=== PATIENT | male | born 1940 | race Caucasian/White ===

== ENCOUNTER 2016-11-21 11:39 | Inpatient (IN) | payer MEDICARE, OTHER ==
[~2016-11-21] VITALS: Ht 177.8 cm; Wt 98.6 kg
[~2016-11-21 11:39] MED LIST: ALLO100T51 PO; DILT300C52 PO; FINA5TAB30 PO; WARF2.5T73 PO; WARF5TAB67 PO; [UNRECOGNIZED DRUG - CODE] PO
--- OUTSIDE RECORDS SUMMARY | 2016-11-21 11:44 | XMS REPORT | Continuity of Care Document ---
Author Author Susan Rodarte CNA Ambulatory Address [address] [place] [address] Phone Care Team Providers Care Safemaker Name Role Phone Rodri Juan STARK Unavailable Payers Payer name Insurance type Covered libertarian ID Authorization(s) Unknown Problems Condition Effective Dates (start - stop) Clinical Status Atrial Fibrillation - *Chronic S/P Pacemaker - *Chronic BPH - *Chronic History of gout - Episodic Atrial Fibrillation - *Controlled S/P Pacemaker - *Chronic BPH - *Chronic S/P Pacemaker - *Chronic Atrial Fibrillation - *Chronic HX-SKIN MALIGNANCY NEC - PRSNL HST COLONIC POLYPS - PRSNL HST URNR DSRD CALC - FM HX PROSTATE MALIG - STATUS CARDIAC PACEMAKER - LONG-TERM USE ANTICOAGUL - HYPERLIPIDEMIA NEC/NOS - ANEMIA NOS - MITRAL VALVE DISORDER - AORTIC VALVE DISORDER - ATRIAL FIBRILLATION - SINOATRIAL NODE DYSFUNCT - CARDIAC DYSRHYTHMIA NOS - CHF NOS - CARDIOMEGALY - ESOPHAGEAL REFLUX - DVRTCLO COLON W/O HMRHG - CALCULUS OF KIDNEY - BPH W URINARY OBS/LUTS - ACTINIC KERATOSIS - DYSPHAGIA NOS - ALLERGY, UNSPECIFIED - Atrial Fibrillation - *Chronic Sick Sinus Syndrome - *Chronic Pacemaker Reprogramming - *Routine Atrial Fibrillation - *Chronic Calculus of kidney - Episodic BPH - *Chronic Other and unspecified hyperlipidemia - *Chronic Influenza Vaccine - Atrial Fibrillation - *Chronic S/P Pacemaker - Atrial Fibrillation - *Chronic S/P Pacemaker - *Stable Upper Respiratory Infection, Acute - *Acute Laryngitis acute - *Acute Bronchitis, Acute - *Acute Acute frontal sinusitis - *Acute Status post placement of cardiac pacemaker - *Chronic Anticoagulation adequate with anticoagulant therap - *Chronic Atrial Fibrillation - *Chronic BPH - *Chronic BPH - *Controlled Family history of malignant neoplasm of prostate - *Routine 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 - * Fair Control Family history of malignant neoplasm of prostate - *Routine Family History Family Member Diagnosis Age At Onset Status Brother (Unknown) Heart disease Yes sister 1 (Unknown) Rheumatoid Arthritis Yes Father (Unknown) Hypertension Yes sister 2 (Unknown) Alive and well (Unknown) Son (Unknown) coarctation of aorta Yes Mother (Unknown) Diabetes Yes Mother (Unknown) Hypertension Yes Mother (Unknown) Cancer - lung Yes Mother (Unknown) Cancer - liver Yes Father (Unknown) Diabetes Yes Father (Unknown) Cancer - bladder Yes Mother (Unknown) Obesity Yes Social History Social History Element Description Quantity Unknown Allergies, Adverse Reactions, Alerts Substance Reaction Severity Status IODINE Unknown Medications Medication Instructions Dosage Effective Dates (start - stop) Status finasteride 5 mg tablet Take 1 tablet by mouth at bedtime. - Active digoxin 250 mcg tablet Take 1 tablet by mouth every day. - Active diltiazem ER 240 mg capsule,extended release Take 1 capsule by mouth every day. - Active allopurinol 100 mg tablet Take 1 tablet by mouth every day. - Active warfarin 5 mg tablet 2.5 mg -; 5 mg other days. - Active finasteride 5 mg tablet Take 1 tablet by mouth at bedtime. - No Longer Active digoxin 250 mcg tablet Take 1 tablet by mouth every day. - Sep No Longer Active diltiazem ER 240 mg capsule,extended release Take 1 capsule by mouth every day. - No Longer Active allopurinol 100 mg tablet Take 1 tablet by mouth every day. - No Longer Active warfarin 5 mg tablet 2.5 mg m-w-; 5 mg other days. - 2013 No Longer Active Immunizations Vaccine Date Status Comments Flu (split) (3 yrs or older) completed pneumo (2 yrs or older) (PPV23) completed - Completed reason: source unspecified Results Test Name Date and Time Measure Units Reference Range Abnormal Flag Comments Unknown Vital Signs Date / Time: Height Weight Pulse Rate Blood Pressure Temperature /11:28:00 69.50 in 208.00 lbs 65 /min 118/84 mm[Hg] 98.0 F Procedures Procedure Date Unknown Encounters Encounter Location Date Patient Visit [facility] Patient Visit [facility] Patient Visit [facility] Card Patient Visit [facility]version Patient Visit [facility] Patient Visit [facility] Patient Visit [facility] Patient Visit [facility] Patient Visit [facility] Patient Visit [facility] Patient Visit [facility] Patient Visit [facility] Patient Visit [facility] Patient Visit [facility] Patient Visit Conversion Advance Directives Directive Effective Date Unknown
--- OUTSIDE RECORDS SUMMARY | 2016-11-21 11:44 | XMS REPORT | Referral Summary ---
Author Author [facility], Family Medicine Organization [facility] Address Unknown Phone Unavailable Care Team Providers Care Aircraft Manager Name Role Phone Nayely Dorsey Primary Care Physician [phone] Encounter VC Date(s): 09/14/16 - 09/14/16 [facility] [address] [place] [address]- Discharge Disposition: 01-Home or Self Care Attending Physician: Chidi Dorsey MD Admitting Physician: Chidi Dorsey MD Vital Signs Most recent to 1 oldest [Reference Range]: Blood Pressure 152/72 mmHg [90-140/60-90 mmHg] *HI* (09/14/16 8:15 AM) Problem List Condition Effective Dates Status Health Status Informant Actinic Resolved keratosis(Confirmed) Allergies(Confirmed) Resolved Anemia(Confirmed) Resolved Anticoagulation Resolved adequate with anticoagulant therapy, half-way(Confirmed) Aortic valve Resolved disorder(Confirmed) Atrial Resolved fibrillation(Confirm ed) Atrial Resolved fibrillation(Confirm ed) Benign essential Active hypertension(Confirm ed) Cardiac Resolved dysrhythmia(Confirme d) Cardiac Resolved pacemaker(Confirmed) Cardiomegaly(Confirm Resolved ed) CHF (congestive Resolved heart failure)(Confirmed) Colonic Resolved polyps(Confirmed) Diverticulitis(Confi Resolved rmed) Diverticulosis of Resolved colon(Confirmed) Dysphagia(Confirmed) Resolved Gastro esophageal Resolved reflux(Confirmed) Chronic Active gout(Confirmed) Hyperlipidemia(Confi Resolved rmed) Hypertrophy of Resolved prostate with urinary obstruction(Confirme d) Elevated blood Active sugar(Confirmed) Kidney Resolved disease(Confirmed) Kidney Resolved stone(Confirmed) Mitral valve Resolved disorder(Confirmed) Multiple adenomatous Resolved polyps(Confirmed) Obesity(Confirmed) Active patient Persistent atrial Active fibrillation(Confirm ed) Polio(Confirmed) Resolved Prostate cancer; Resolved family history(Confirmed) Sick sinus Resolved syndrome(Confirmed) Sinoatrial node Resolved dysfunction(Confirme d) Skin Resolved neoplasm(Confirmed) Syncope(Confirmed) Resolved Urinary Resolved calculi(Confirmed) On warfarin Active therapy(Confirmed) Allergies, Adverse Reactions, Alerts Substance Reaction Severity Status iodine Adverse Reaction Active Unknown Medications allopurinol 100 mg oral tablet 100 mg 1 tabs, Oral, Daily, # 90 tabs, 1 Refill(s), Pharmacy: [facility] # [id number], 1 tabs Oral Daily Start Date: 03/15/16 Status: Ordered digoxin 250 mcg (0.25 mg) oral tablet 250 mcg 1 tabs, Oral, Daily, # 90 tabs, 1 Refill(s), Pharmacy: [facility] #[id number], 1 tabs Oral Daily Start Date: 03/15/16 Status: Ordered Diltiazem Hydrochloride ER 300 mg/24 hours oral capsule, extended release 300 mg 1 caps, Oral, Daily, # 90 caps, 1 Refill(s), Pharmacy: [facility] # [id number], 1 caps Oral Daily Start Date: 03/15/16 Status: Ordered Eliquis Oral, BID, 0 Refill(s) Start Date: 09/14/16 Status: Ordered finasteride 5 mg oral tablet 5 mg 1 tabs, Oral, Daily, # 90 tabs, 1 Refill(s), Pharmacy: [facility] # [id number], 1 tabs Oral Daily Start Date: 03/15/16 Status: Ordered Tylenol Caplet 325 mg oral tablet 1 tabs, Oral, Daily, as needed for pain, 0 Refill(s) Start Date: 06/03/14 Status: Ordered warfarin 5 mg oral tablet 5 mg 1 tabs, Oral, Daily, TAKE 5MG M/W/F AND TAKE 2.5MG TU/THURS/SAT/SUN, or as directed based on INR., # 100 tabs, 1 Refill(s), Pharmacy: [facility] # [id number], 1 tabs Oral Daily,Instr:TAKE 5MG M/W/F AND TAKE 2.5MG TU/THURS/SAT/SUN, or as directed... Start Date: 03/15/16 Status: Ordered Results No data available for this section Immunizations Given and Recorded Vaccine Date Status Refusal Reason influenza virus vaccine, inactivated 04/18/16 Given influenza virus vaccine, inactivated 05/07/15 Recorded influenza virus vaccine, live 05/08/12 Given pneumococcal 13-valent conjugate vaccine 04/18/16 Given pneumococcal 23-polyvalent vaccine 01/22/07 Recorded zoster vaccine live 03/04/16 Recorded Procedures Procedure Date Related Diagnosis Body Site Colonoscopic polypectomy1 12/24/15 Colonoscopy 2011 Colonoscopy; diverticulitis 2008 septoplasty and Endoscopic cauterization 2008 Lithotripsy, cysto; kidney stones 2007 Colonoscopy abnormal2 2005 Pacemaker insertion, Permanent3 2004 Prostate Biopsy- Negative 2000 Viral meningitis4 1999 Syncope5 1995 Bilateral Inguinal Herniorrhaphy 1988 Kidney stone6 1984 Appendectomy 1964 Ganglion cyst removal right wrist 1961 Polio7 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 They can happen to people of all ages. There are many things you can do to make your home safe and to help prevent falls. WHAT CAN I DO ON THE OUTSIDE OF MY HOME? Regularly fix the edges of walkways and driveways and fix any cracks. Remove anything that might make you trip as you walk through a door, such as a raised step or threshold. Trim any bushes or trees on the path to your home. Use bright outdoor lighting. Clear any walking paths of anything that might make someone trip, such as rocks or tools. Regularly check to see if handrails are loose or broken. Make sure that both sides of any steps have handrails. Any raised decks and porches should have guardrails on the edges. Have any leaves, snow, or ice cleared regularly. Use sand or salt on walking paths during winter. Clean up any spills in your garage right away. This includes oil or grease spills. WHAT CAN I DO IN THE BATHROOM? Use night lights. Install grab bars by the toilet and in the tub and shower. Do not use towel bars as grab bars. Use non-skid mats or decals in the tub or shower. If you need to sit down in the shower, use a plastic, non-slip stool. Keep the floor dry. Clean up any water that spills on the floor as soon as it happens. Remove soap buildup in the tub or shower regularly. Attach bath mats securely with double-sided non-slip rug tape. Do not have throw rugs and other things on the floor that can make you trip. WHAT CAN I DO IN THE BEDROOM? Use night lights. Make sure that you have a light by your bed that is easy to reach. Do not use any sheets or blankets that are too big for your bed. They should not hang down onto the floor. Have a firm chair that has side arms. You can use this for support while you get dressed. Do not have throw rugs and other things on the floor that can make you trip. WHAT CAN I DO IN THE KITCHEN? Clean up any spills right away. Avoid walking on wet floors. Keep items that you use a lot in [id number] places. If you need to reach something above you, use a strong step stool that has a grab bar. Keep electrical cords out of the way. Do not use floor luxembourgish or wax that makes floors slippery. If you must use wax, use non-skid floor wax. Do not have throw rugs and other things on the floor that can make you trip. WHAT CAN I DO WITH MY STAIRS? Do not leave any items on the stairs. Make sure that there are handrails on both sides of the stairs and use them. Fix handrails that are broken or loose. Make sure that handrails are as long as the stairways. Check any carpeting to make sure that it is firmly attached to the stairs. Fix any carpet that is loose or worn. Avoid having throw rugs at the top or bottom of the stairs. If you do have throw rugs, attach them to the floor with carpet tape. Make sure that you have a light switch at the top of the stairs and the bottom of the stairs. If you do not have them, ask someone to add them for you. WHAT ELSE CAN I DO TO HELP PREVENT FALLS? Wear shoes that: Do not have high heels. Have rubber bottoms. Are comfortable and fit you well. Are closed at the toe. Do not wear sandals. If you use a stepladder: Make sure that it is fully opened. Do not climb a closed stepladder. Make sure that both sides of the stepladder are locked into place. Ask someone to hold it for you, if possible. Clearly forrest and make sure that you can see: Any grab bars or handrails. First and last steps. Where the edge of each step is. Use tools that help you move around (mobility aids) if they are needed. These include: Canes. Walkers. Scooters. Crutches. Turn on the lights when you go into a dark area. Replace any light bulbs as soon as they burn out. Set up your furniture so you have a clear path. Avoid moving your furniture around. If any of your floors are uneven, fix them. If there are any pets around you, be aware of where they are. Review your medicines with your doctor. Some medicines can make you feel dizzy. This can increase your chance of falling. Ask your doctor what other things that you can do to help prevent falls. This information is not intended to replace advice given to you by your health care provider. Make sure you discuss any questions you have with your health care provider. Document Released: 05/06/2010 Document Revised: 11/24/2015 Document Reviewed: [employer] Patient Education 2016 [employer] Health and Wellness Exercising to Stay Healthy Exercising regularly is important. It has many health benefits, such as: Improving your overall fitness, flexibility, and endurance. Increasing your bone density. Helping with weight control. Decreasing your body fat. Increasing your muscle strength. Reducing stress and tension. Improving your overall health. In order to become healthy and stay healthy, it is recommended that you do moderate-intensity and vigorous-intensity exercise. You can tell that you are exercising at a moderate intensity if you have a higher heart rate and faster breathing, but you are still able to hold a conversation. You can tell that you are exercising at a vigorous intensity if you are breathing much harder and faster and cannot hold a conversation while exercising. HOW OFTEN SHOULD I EXERCISE? Choose an activity that you enjoy and set realistic goals. Your health care provider can help you to make an activity plan that works for you. Exercise regularly as directed by your health care provider. This may include: Doing resistance training twice each week, such as: Push-ups. Sit-ups. Lifting weights. Using resistance bands. Doing a given intensity of exercise for a given amount of time. Choose from these options: 150 minutes of moderate-intensity exercise every week. 75 minutes of vigorous-intensity exercise every week. A mix of moderate-intensity and vigorous-intensity exercise every week. Children, women, people who are out of shape, people who are overweight , and older adults may need to consult a health care provider for individual recommendations. If you have any sort of medical condition, be sure to consult your health care provider before starting a new exercise program. WHAT ARE SOME EXERCISE IDEAS? Some moderate-intensity exercise ideas include: Walking at a rate of 1 mile in 15 minutes. Biking. Hiking. Golfing. Dancing. Some vigorous-intensity exercise ideas include: Walking at a rate of at least 4.5 miles per hour. Jogging or running at a rate of 5 miles per hour. Biking at a rate of at least 10 miles per hour. Lap swimming. Roller-skating or in-line skating. Cross-country skiing. Vigorous competitive sports, such as football, basketball, and soccer. Jumping rope. Aerobic dancing. WHAT ARE SOME EVERYDAY ACTIVITIES THAT CAN HELP ME TO GET EXERCISE? Yard work, such as: Pushing a flux core welder. Raking and bagging leaves. Washing and waxing your car. Pushing a stroller. Shoveling snow. Gardening. Washing windows or floors. HOW CAN I BE MORE ACTIVE IN MY DAY-TO-DAY ACTIVITIES? Use the stairs instead of the elevator. Take a walk during your lunch break. If you drive, park your car farther away from work or school. If you take public transportation, get off one stop early and walk the rest of the way. Make all of your phone calls while standing up and walking around. Get up, stretch, and walk around every 30 minutes throughout the day. WHAT GUIDELINES SHOULD I FOLLOW WHILE EXERCISING? Do not exercise so much that you hurt yourself, feel dizzy, or get very short of breath. Consult your health care provider before starting a new exercise program. Wear comfortable clothes and shoes with good support. Drink plenty of water while you exercise to prevent dehydration or heat stroke. Body water is lost during exercise and must be replaced. Work out until you breathe faster and your heart beats faster. This information is not intended to replace advice given to you by your health care provider. Make sure you discuss any questions you have with your health care provider. Document Released: 08/12/2011 Document Revised: 07/31/2015 Document Reviewed: [employer] Interactive Patient Education 2016 [employer] No follow up information was provided.
--- OUTSIDE RECORDS SUMMARY | 2016-11-21 11:44 | XMS REPORT | Referral Summary ---
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 Name Role Phone Gabriel Mace Primary Care Physician [phone] Encounter [facility] Date(s): 10/14/14 - 10/14/14 [facility] Internal Medicine [address] [place] [address] [place] [id number] Discharge Diagnosis: History of kidney stones Discharge Diagnosis: Essential hypertension Discharge Diagnosis: Medicare annual wellness visit, subsequent Discharge Diagnosis: BPH (benign prostatic hyperplasia) Discharge Disposition: Home or Self Care Attending Physician: Juan Mace MD Admitting Physician: Juan Mace MD Vital Signs Most recent to 1 oldest [Reference Range]: Temperature Oral 36.5 degC [35.8-37.3 degC] (10/14/14 3:36 PM) Temperature Tympanic 36.5 degC [36.6-38.1 degC] *LOW* (10/14/14 8:43 AM) Peripheral Pulse 69 bpm Rate [60-100 bpm] (10/14/14 3:36 PM) Respiratory Rate 16 br/min [14-20 br/min] (10/14/14 8:43 AM) Blood Pressure 118/68 mmHg [90-140/60-90 mmHg] (10/14/14 3:36 PM) Most recent to 1 oldest [Reference Range]: SpO2 95 % (10/14/14 8:43 AM) Problem List Condition Effective Dates Status Health Status Informant Actinic Resolved keratosis(Confirmed) Allergies(Confirmed) Resolved Anemia(Confirmed) Resolved Anticoagulation Resolved adequate with anticoagulant therapy, 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) Aortic valve Resolved disorder(Confirmed) Atrial Resolved fibrillation(Confirm ed) Atrial Resolved fibrillation(Confirm ed) Cardiac Resolved dysrhythmia(Confirme d) Cardiac Resolved pacemaker(Confirmed) Cardiomegaly(Confirm Resolved ed) CHF (congestive Resolved heart failure)(Confirmed) Colonic Resolved polyps(Confirmed) Diverticulitis(Confi Resolved rmed) Diverticulosis of Resolved colon(Confirmed) Dysphagia(Confirmed) Resolved Gastro esophageal Resolved reflux(Confirmed) Hyperlipidemia(Confi Resolved rmed) Hypertrophy of Resolved prostate with urinary obstruction(Confirme d) Kidney Resolved disease(Confirmed) Kidney Resolved stone(Confirmed) Mitral valve Resolved disorder(Confirmed) Multiple adenomatous Resolved polyps(Confirmed) Obesity(Confirmed) Active patient Persistent atrial Active fibrillation(Confirm ed) Polio(Confirmed) Resolved Prostate cancer; Resolved family history(Confirmed) Sick sinus Resolved syndrome(Confirmed) Sinoatrial node Resolved dysfunction(Confirme d) Skin Resolved neoplasm(Confirmed) Syncope(Confirmed) Resolved Urinary Resolved calculi(Confirmed) Allergies, Adverse Reactions, Alerts Substance Reaction Severity Status iodine Adverse Reaction Active Unknown Medications allopurinol 100 mg oral tablet 1 tabs, Oral, Daily, # 90 tabs, 1 Refill(s), 1 tabs Oral Daily Start Date: 10/14/14 Status: Ordered digoxin 250 mcg (0.25 mg) oral tablet 1 tabs, Oral, Daily, # 90 tabs, 1 Refill(s), 1 tabs Oral Daily Start Date: 10/14/14 Status: Ordered diltiazem 240 mg/24 hours oral capsule, extended release 1 caps, Oral, Daily, # 90 tabs, 1 Refill(s), 1 caps Oral Daily Start Date: 10/14/14 Status: Ordered finasteride 5 mg oral tablet 1 tabs, Oral, Daily, # 90 tabs, 1 Refill(s), 1 tabs Oral Daily Start Date: 10/14/14 Status: Ordered Guaiatussin AC 10 mg-100 mg/5 mL oral syrup 5 mL, Oral, q4hr, as needed for cough, X 7 days, # 210 mL, 0 Refill(s) Start Date: 10/10/14 Stop Date: 10/17/14 Status: Ordered Tylenol Caplet 325 mg oral tablet 1 tabs, Oral, Daily, as needed for pain, 0 Refill(s) Start Date: 06/03/14 Status: Ordered warfarin 5 mg oral tablet 1 tabs, Oral, Daily, # 78 tabs, 1 Refill(s), 1 tabs Oral Daily Start Date: 10/14/14 Status: Ordered Results No data available for this section Immunizations Vaccine Date Refusal Reason influenza virus vaccine, live 05/08/12 pneumococcal 23-polyvalent vaccine 01/22/07 Procedures Procedure Date Related Diagnosis Body Site Colonoscopy 2011 Colonoscopy; diverticulitis 2008 septoplasty and Endoscopic cauterization 2008 Lithotripsy, cysto; kidney stones 2007 Colonoscopy abnormal1 2005 Pacemaker insertion, Permanent2 2004 Prostate Biopsy- Negative 2000 Viral meningitis3 2000 Syncope4 1995 Bilateral Inguinal Herniorrhaphy 1987 Kidney stone5 1983 Appendectomy 1964 Ganglion cyst removal right wrist 1961 Polio6 195 1Adenomatous polyps and diverticuli 2Sick sinus syndrome 3Hospitalization 4Hospitalization 5Hospitalization 6Hospitalization Social History Social History Type Response Smoking Status Never smoker Assessment and Plan Extracted from: Title: Ambulatory Patient Education Author: Juan Mace MD Date: Family Medicine Hypertension As your heart beats, it forces blood through your arteries. This force is your blood pressure. If the pressure is too high, it is called hypertension (HTN) or high blood pressure. HTN is dangerous because you may have it and not know it. High blood pressure may mean that your heart has to work harder to pump blood. Your arteries may be narrow or stiff. The extra work puts you at risk for heart disease, stroke, and other problems. Blood pressure consists of two numbers, a higher number over a lower, 110/72, for example. It is stated as "110 over 72." The ideal is below 120 for the top number (systolic ) and under 80 for the bottom (diastolic ). Write down your blood pressure today. You should pay close attention to your blood pressure if you have certain conditions such as: Heart failure. Prior heart attack. Diabetes Chronic kidney disease. Prior stroke. Multiple risk factors for heart disease. To see if you have HTN, your blood pressure should be measured while you are seated with your arm held at the level of the heart. It should be measured at least twice. A one-time elevated blood pressure reading (especially in the Emergency Department) does not mean that you need treatment. There may be conditions in which the blood pressure is different between your right and left arms. It is important to see your caregiver soon for a recheck. Most people have essential hypertension which means that there is not a specific cause. This type of high blood pressure may be lowered by changing lifestyle factors such as: Stress. Smoking. Lack of exercise. Excessive weight. Drug/tobacco/alcohol use. Eating less salt. Most people do not have symptoms from high blood pressure until it has caused damage to the body. Effective treatment can often prevent, delay or reduce that damage. TREATMENT When a cause has been identified, treatment for high blood pressure is directed at the cause. There are a large number of medications to treat HTN. These fall into several categories, and your caregiver will help you select the medicines that are best for you. Medications may have side effects. You should review side effects with your caregiver. If your blood pressure stays high after you have made lifestyle changes or started on medicines, Your medication(s) may need to be changed. Other problems may need to be addressed. Be certain you understand your prescriptions, and know how and when to take your medicine. Be sure to follow up with your caregiver within the time frame advised ( usually within two weeks) to have your blood pressure rechecked and to review your medications. If you are taking more than one medicine to lower your blood pressure, make sure you know how and at what times they should be taken. Taking two medicines at the same time can result in blood pressure that is too low. SEEK IMMEDIATE MEDICAL CARE IF: You develop a severe headache, blurred or changing vision, or confusion. You have unusual weakness or numbness, or a faint feeling. You have severe chest or abdominal pain, vomiting, or breathing problems. MAKE SURE YOU: Understand these instructions. Will watch your condition. Will get help right away if you are not doing well or get worse. Document Released: 07/10/2006 Document Revised: 10/01/2012 Document Reviewed: [facility] Patient Information 2014 [employer]. Follow Up With: Where: When: Juan Mace [address] [place] [address] Drive; [place] [address] [place] (1Baeta In 4 months 02/13/2015 Comments: Extracted from: Title: Office Visit Note Author: Juan Mace MD Date: 10/14/14 Assessment/Plan BPH (benign prostatic hyperplasia) PSA will be scheduled. Ordered: Prostate Specific Antigen Essential hypertension This is well controlled. CMP will be ordered. Ordered: Comprehensive Metabolic Panel History of kidney stones This has been stable recently. Uric acid level will be checked. Ordered: Uric Acid Medicare annual wellness visit, subsequent The forms were filled out. Ordered: Periodic Comp Preventive Med 65+ years Est [address] Orders: allopurinol, 1 tabs, Oral, Daily, # 90 tabs, 1 Refill(s), 1 tabs Oral Daily digoxin, 1 tabs, Oral, Daily, # 90 tabs, 1 Refill(s), 1 tabs Oral Daily diltiazem, 1 caps, Oral, Daily, # 90 tabs, 1 Refill(s), 1 caps Oral Daily finasteride, 1 tabs, Oral, Daily, # 90 tabs, 1 Refill(s), 1 tabs Oral Daily warfarin, 1 tabs, Oral, Daily, # 78 tabs, 1 Refill(s), 1 tabs Oral Daily
--- OUTSIDE RECORDS SUMMARY | 2016-11-21 11:44 | XMS REPORT | Referral Summary ---
Author Author [facility] Organization [facility] Address Unknown Phone Unavailable Care Team Providers Care Licensed Vocational Nurse Name Role Phone Gabriel Mace Primary Care Physician [phone] Encounter [facility] [id number] Date(s): 03/03/15 - 03/03/15 [facility] [address] [place] [id number] Discharge Diagnosis: Presence of permanent cardiac pacemaker Discharge Diagnosis: Persistent atrial fibrillation Discharge Disposition: -Home or Self Care Attending Physician: Leander Zhao MD Admitting Physician: Leander Zhao MD Referring Physician: Juan Mace MD Vital Signs Most recent to 1 oldest [Reference Range]: Peripheral Pulse 60 bpm Rate [60-100 bpm] (03/03/15 9:16 AM) Blood Pressure 124/72 mmHg [90-140/60-90 mmHg] (03/03/15 9:16 AM) Problem List Condition Effective Dates Status Health Status Informant Actinic Resolved keratosis(Confirmed) Allergies(Confirmed) Resolved Anemia(Confirmed) Resolved Anticoagulation Resolved adequate with anticoagulant therapy, 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) Aortic valve Resolved disorder(Confirmed) Atrial Resolved fibrillation(Confirm [...] Daily, # 90 tabs, 1 Refill(s), Pharmacy: [facility], 1 tabs Oral Daily Start Date: 04/16/15 Status: Ordered digoxin 250 mcg (0.25 mg) oral tablet 250 mcg 1 tabs, Oral, Daily, # 90 tabs, 1 Refill(s), Pharmacy: [facility], 1 tabs Oral Daily Start Date: 04/16/15 Status: Ordered Diltiazem Hydrochloride ER 300 mg/24 hours oral capsule, extended release 300 mg 1 caps, Oral, Daily, # 90 caps, 3 Refill(s), Pharmacy: [facility], 1 caps Oral Daily Start Date: 05/14/15 Status: Ordered finasteride 5 mg oral tablet 5 mg 1 tabs, Oral, Daily, # 90 tabs, 1 Refill(s), Pharmacy: [facility], 1 tabs Oral Daily Start Date: 04/16/15 Status: Ordered Tylenol Caplet 325 mg oral tablet 1 tabs, Oral, Daily, as needed for pain, 0 Refill(s) Start Date: 06/03/14 Status: Ordered warfarin 5 mg oral tablet 5 mg 1 tabs, Oral, Daily, TAKE 5MG M/W/F AND TAKE 2.5MG TU/THURS/SAT/SUN., # 78 tabs, 1 Refill(s), Pharmacy: [facility], 1 tabs Oral Daily, Instr:TAKE 5MG M/W/F AND TAKE 2.5MG TU/THURS/SAT/SUN. Start Date: 04/16/15 Status: Ordered Results No data available for this section Immunizations Vaccine Date Refusal Reason influenza virus vaccine, inactivated 05/07/15 influenza virus vaccine, live 05/08/12 pneumococcal 23-polyvalent vaccine 01/22/07 Procedures Procedure Date Related Diagnosis Body Site Colonoscopy 2011 Colonoscopy; diverticulitis 2007 septoplasty and Endoscopic cauterization 2008 Lithotripsy, cysto; kidney stones 2007 Colonoscopy abnormal1 2004 Pacemaker insertion, Permanent2 2003 Prostate Biopsy- Negative 2001 Viral meningitis3 2000 Syncope4 1995 Bilateral Inguinal Herniorrhaphy 1988 Kidney stone5 1984 Appendectomy 1964 Ganglion cyst removal right wrist 1961 Polio6 1951 1Adenomatous polyps and diverticuli 2Sick sinus syndrome 3Hospitalization 4Hospitalization 5Hospitalization 6Hospitalization Social History Social History Type Response Smoking Status Never smoker Assessment and Plan Extracted from: Title: Office Visit Note Author: Leander Zhao MD Date: 03/03/15 Assessment/Plan 1.Presence of permanent cardiac pacemaker Ordered: Office Visit Level 3 Est 98484 Pm Device Progr Eval Sngl [id number] Return to Clinic 2.Persistent atrial fibrillation Ordered: Office Visit Level 3 Est 02452 Pm Device Progr Eval Sngl [id number] Return to Clinic Orders: warfarin, 5 mg 1 tabs, Oral, Daily, TAKE 5MG // AND TAKE 2.5MG / /MON/SUN., # 78 tabs, 1 Refill(s), 1 tabs Oral Daily Referrals to Other Providers Referred by: Leander Zhao MD
--- OUTSIDE RECORDS SUMMARY | 2016-11-21 11:44 | XMS REPORT | Referral Summary ---
Author Author [facility] Organization [facility] Address Unknown Phone Unavailable Care Team Providers Care It Applications Analyst Name Role Phone Nayely Dorsey Primary Care Physician [phone] Encounter VC Date(s): 03/15/16 - 03/15/16 [facility], [address] [place] [address]- Discharge Disposition: 01-Home or Self Care Attending Physician: Chidi Dosrey MD Admitting Physician: Chidi Dorsey MD Vital Signs Most recent to 1 oldest [Reference Range]: Blood Pressure 130/70 mmHg [90-140/60-90 mmHg] (03/15/16 9:31 AM) Problem List Condition Effective Dates Status Health Status Informant Actinic Resolved keratosis(Confirmed) Allergies(Confirmed) Resolved Anemia(Confirmed) Resolved Anticoagulation Resolved adequate with anticoagulant therapy, roasterman(Confirmed) Aortic valve Resolved disorder(Confirmed) Atrial Resolved fibrillation(Confirm [...] Daily, # 90 tabs, 1 Refill(s), Pharmacy: [facility] # [id number], 1 tabs Oral Daily Start Date: 03/15/16 Status: Ordered digoxin 250 mcg (0.25 mg) oral tablet 250 mcg 1 tabs, Oral, Daily, # 90 tabs, 1 Refill(s), Pharmacy: [facility] #[id number], 1 tabs Oral Daily Start Date: 03/15/16 Status: Ordered Diltiazem Hydrochloride ER 300 mg/24 hours oral capsule, extended release 300 mg 1 caps, Oral, Daily, # 90 caps, 1 Refill(s), Pharmacy: [facility] # [id number], 1 caps Oral Daily Start Date: 03/15/16 Status: Ordered finasteride 5 mg oral tablet 5 mg 1 tabs, Oral, Daily, # 90 tabs, 1 Refill(s), Pharmacy: [facility] # [id number], 1 tabs Oral Daily Start Date: 03/15/16 Status: Ordered Tylenol Caplet 325 mg oral tablet 1 tabs, Oral, Daily, as needed for pain, 0 Refill(s) Start Date: 06/03/14 Status: Ordered warfarin 5 mg oral tablet 5 mg 1 tabs, Oral, Daily, TAKE 5MG M/W/F AND TAKE 2.5MG TU/THURS/SAT/SUN, or as directed based on INR., # 100 tabs, 1 Refill(s), Pharmacy: [facility] # [id number], 1 tabs Oral Daily,Instr:TAKE 5MG M/W/F AND TAKE 2.5MG TU/THURS/SAT/SUN, or as directed... Start Date: 03/15/16 Status: Ordered Results No data available for this section Immunizations Vaccine Date Refusal Reason influenza virus vaccine, inactivated 05/07/15 influenza virus vaccine, live 05/08/12 pneumococcal 23-polyvalent vaccine 01/22/07 zoster vaccine live 03/04/16 Procedures Procedure Date Related Diagnosis Body Site Colonoscopic polypectomy1 6/2/16 Colonoscopy 2011 Colonoscopy; diverticulitis 2008 septoplasty and Endoscopic cauterization 2008 Lithotripsy, cysto; kidney stones 2007 Colonoscopy abnormal2 2005 Pacemaker insertion, Permanent3 2004 Prostate Biopsy- Negative 2000 Viral meningitis4 1999 Syncope5 1995 Bilateral Inguinal Herniorrhaphy 1987 Kidney stone6 1983 Appendectomy 1964 Ganglion cyst removal right wrist 1961 Polio7 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 During atrial fibrillation, the upper chambers of the heart (atria) quiver continuously in a chaotic pattern. This causes an irregular and often rapid heart rate. Atrial fibrillation is the result of the heart becoming overloaded with disorganized signals that tell it to beat. These signals are normally released one at a time by a part of the right atrium called the sinoatrial node. They then travel from the atria to the lower chambers of the heart (ventricles), causing the atria and ventricles to contract and pump blood as they pass. In atrial fibrillation, parts of the atria outside of the sinoatrial node also release these signals. This results in two problems. First, the atria receive so many signals that they do not have time to fully contract. Second, the ventricles, which can only receive one signal at a time, beat irregularly and out of rhythm with the atria. There are three types of atrial fibrillation: Paroxysmal. Paroxysmal atrial fibrillation starts suddenly and stops on its own within a week. Persistent. Persistent atrial fibrillation lasts for more than a week. It may stop on its own or with treatment. Permanent. Permanent atrial fibrillation does not go away. Episodes of atrial fibrillation may lead to permanent atrial fibrillation. Atrial fibrillation can prevent your heart from pumping blood normally. It increases your risk of stroke and can lead to heart failure. CAUSES Heart conditions, including a heart attack, heart failure, coronary artery disease, and heart valve conditions. Inflammation of the sac that surrounds the heart (pericarditis). Blockage of an artery in the lungs (pulmonary embolism). Pneumonia or other infections. Chronic lung disease. Thyroid problems, especially if the thyroid is overactive ( hyperthyroidism). Caffeine, excessive alcohol use, and use of some illegal drugs. Use of some medicines, including certain decongestants and diet pills. Heart surgery. defects. Sometimes, no cause can be found. When this happens, the atrial fibrillation is called lone atrial fibrillation. The risk of complications from atrial fibrillation increases if you have lone atrial fibrillation and you are age 60 years or older. RISK FACTORS Heart failure. Coronary artery disease. Diabetes mellitus. High blood pressure (hypertension). Obesity. Other arrhythmias. Increased age. SIGNS AND SYMPTOMS A feeling that your heart is beating rapidly or irregularly. A feeling of discomfort or pain in your chest. Shortness of breath. Sudden light-headedness or weakness. Getting tired easily when exercising. Urinating more often than normal (mainly when atrial fibrillation first begins). In paroxysmal atrial fibrillation, symptoms may start and suddenly stop. DIAGNOSIS Your health care provider may be able to detect atrial fibrillation when taking your pulse. Your health care provider may have you take a test called an ambulatory electrocardiogram (ECG). An ECG records your heartbeat patterns over a 24-hour period. You may also have other tests, such as: Transthoracic echocardiogram (TTE). During echocardiography, sound waves are used to evaluate how blood flows through your heart. Transesophageal echocardiogram (LEX). Stress test. There is more than one type of stress test. If a stress test is needed, ask your health care provider about which type is best for you. Chest X-ray exam. Blood tests. Computed tomography (CT). TREATMENT Treatment may include: Treating any underlying conditions. For example, if you have an overactive thyroid, treating the condition may correct atrial fibrillation. Taking medicine. Medicines may be given to control a rapid heart rate or to prevent blood clots, heart failure, or a stroke. Having a procedure to correct the rhythm of the heart: Electrical cardioversion. During electrical cardioversion, a controlled, low-energy shock is delivered to the heart through your skin. If you have chest pain, very low blood pressure, or sudden heart failure, this procedure may need to be done as an emergency. Catheter ablation. During this procedure, heart tissues that send the signals that cause atrial fibrillation are destroyed. Surgical ablation. During this surgery, thin lines of heart tissue that carry the abnormal signals are destroyed. This procedure can either be an open- heart surgery or a minimally invasive surgery. With the minimally invasive surgery, small cuts are made to access the heart instead of a large opening. Pulmonary venous isolation. During this surgery, tissue around the veins that carry blood from the lungs (pulmonary veins) is destroyed. This tissue is thought to carry the abnormal signals. HOME CARE INSTRUCTIONS Take medicines only as directed by your health care provider. Some medicines can make atrial fibrillation worse or recur. If blood thinners were prescribed by your health care provider, take them exactly as directed. Too much blood-thinning medicine can cause bleeding. If you take too little, you will not have the needed protection against stroke and other problems. Perform blood tests at home if directed by your health care provider. Perform blood tests exactly as directed. Quit smoking if you smoke. Do not drink alcohol. Do not drink caffeinated beverages such as coffee, soda, and some teas. You may drink decaffeinated coffee, soda, or tea. Maintain a healthy weight.Do not use diet pills unless your health care provider approves. They may make heart problems worse. Follow diet instructions as directed by your health care provider. Exercise regularly as directed by your health care provider. Keep all follow-up visits as directed by your health care provider. This is important. PREVENTION The following substances can cause atrial fibrillation to recur: Caffeinated beverages. Alcohol. Certain medicines, especially those used for breathing problems. Certain herbs and herbal medicines, such as those containing ephedra or ginseng. Illegal drugs, such as cocaine and amphetamines. Sometimes medicines are given to prevent atrial fibrillation from recurring. Proper treatment of any underlying condition is also important in helping prevent recurrence. SEEK MEDICAL CARE IF: You notice a change in the rate, rhythm, or strength of your heartbeat. You suddenly begin urinating more frequently. You tire more easily when exerting yourself or exercising. SEEK IMMEDIATE MEDICAL CARE IF: You have chest pain, abdominal pain, sweating, or weakness. You feel nauseous. You have shortness of breath. You suddenly have swollen feet and ankles. You feel dizzy. Your face or limbs feel numb or weak. You have a change in your vision or speech. MAKE SURE YOU: Understand these instructions. Will watch your condition. Will get help right away if you are not doing well or get worse. This information is not intended to replace advice given to you by your health care provider. Make sure you discuss any questions you have with your health care provider. Document Released: 07/10/2006 Document Revised: 07/31/2015 Document Reviewed: [employer] Patient Information 2016 [employer]. No follow up information was provided. Extracted from: Title: Office Visit Note Author: Chidi Dorsey MD Date: 03/15/16 Assessment/Plan Actinic keratosis We discussed several options for treatment for this condition. The patient declined any changes or other treatments at this time. No issuestoday. Anticoagulation adequate with anticoagulant therapy, intermediate This issue was reviewed, appears stable, and current therapy continued except as mentioned. Appropriate lab was reviewed from the most recent appropriate entry and lab was ordered if needed in the cpoe/nursing orders, and follow up recommended generally in 90 days and no later then six months. Protimes stable. Aortic valve disorder This issue was reviewed, appears stable, and current therapy continued except as mentioned. Appropriate lab was reviewed from the most recent appropriate entry and lab was ordered if needed in the cpoe/nursing orders, and follow up recommended generally in 90 days and no later then six months. Seeing [address] Zhao. Atrial fibrillation This issue was reviewed, appears stable, and current therapy continued except as mentioned. Appropriate lab was reviewed from the most recent appropriate entry and lab was ordered if needed in the cpoe/nursing orders, and follow up recommended generally in 90 days and no later then six months. Cardiac pacemaker This issue was reviewed, appears stable, and current therapy continued except as mentioned. Appropriate lab was reviewed from the most recent appropriate entry and lab was ordered if needed in the cpoe/nursing orders, and follow up recommended generally in 90 days and no later then six months. [address] Zhao. CHF (congestive heart failure) This issue was reviewed, appears stable, and current therapy continued except as mentioned. Appropriate lab was reviewed from the most recent appropriate entry and lab was ordered if needed in the cpoe /nursing orders, and follow up recommended generally in 90 days and no later then six months. Elevated blood sugar This issue was reviewed, appears stable, and current therapy continued except as mentioned. Appropriate lab was reviewed from the most recent appropriate entry and lab was ordered if needed in the cpoe/nursing orders, and follow up recommended generally in 90 days and no later then six months. Ordered: CBC w/ Differential Comprehensive Metabolic Panel TSH with Reflex Free T4 Urinalysis with Culture if Indicated Hyperlipidemia This issue was reviewed, appears stable, and current therapy continued except as mentioned. Appropriate lab was reviewed from the most recent appropriate entry and lab was ordered if needed in the cpoe/nursing orders, and follow up recommended generally in 90 days and no later then six months. Lab pending. Ordered: Lipid Panel Prostate cancer; family history This issue was reviewed, appears stable, and current therapy continued except as mentioned. Appropriate lab was reviewed from the most recent appropriate entry and lab was ordered if needed in the cpoe /nursing orders, and follow up recommended generally in 90 days and no later then six months. Orders: allopurinol, 100 mg 1 tabs, Oral, Daily, # 90 tabs, 1 Refill(s), Pharmacy: [facility] #[id number], 1 tabs Oral Daily digoxin, 250 mcg 1 tabs, Oral, Daily, # 90 tabs, 1 Refill(s), Pharmacy: [facility] #[id number], 1 tabs Oral Daily diltiazem, 300 mg 1 caps, Oral, Daily, # 90 caps, 1 Refill(s), Pharmacy: [facility] #[id number], 1 caps Oral Daily finasteride, 5 mg 1 tabs, Oral, Daily, # 90 tabs, 1 Refill(s), Pharmacy: [facility] #[id number], 1 tabs Oral Daily warfarin, 5 mg 1 tabs, Oral, Daily, TAKE 5MG M/W/F AND TAKE 2.5MG TU/THURS/SAT /SUN, or as directed based on INR., # 100 tabs, 1 Refill(s), Pharmacy: [facility] #[id number], 1 tabs Oral Daily,Instr:TAKE 5MG M/W/F AND TAKE 2.5MG TU/THURS /SAT/SUN, or as directed... Uric Acid
--- OUTSIDE RECORDS SUMMARY | 2016-11-21 11:44 | XMS REPORT | Referral Summary ---
Author Author [facility] Organization [facility] Address Unknown Phone Unavailable Care Team Providers Care Public Address Technician Name Role Phone Nayely Dorsey Primary Care Physician [phone] Encounter Date(s): 12/01/15 - 12/01/15 [facility] [address] [place] [id number] Discharge Diagnosis: Presence of permanent cardiac pacemaker Discharge Diagnosis: On warfarin therapy Discharge Diagnosis: Persistent atrial fibrillation Discharge Disposition: -Home or Self Care Attending Physician: Leander Zhao MD Admitting Physician: Leander Zhao MD Referring Physician: Juan Mace MD Vital Signs Most recent to 1 oldest [Reference Range]: Peripheral Pulse 70 bpm Rate [60-100 bpm] (12/01/15 9:08 AM) Blood Pressure 140/80 mmHg [90-140/60-90 mmHg] (12/01/15 9:08 AM) Problem List Condition Effective Dates Status Health Status Informant Actinic Resolved keratosis(Confirmed) Allergies(Confirmed) Resolved Anemia(Confirmed) Resolved Anticoagulation Resolved adequate with anticoagulant therapy, mcc(Confirmed) Aortic valve Resolved disorder(Confirmed) Atrial Resolved fibrillation(Confirm [...] Daily, # 90 tabs, 1 Refill(s), Pharmacy: [facility] # [id number], 1 tabs Oral Daily Start Date: 09/21/15 Status: Ordered digoxin 250 mcg (0.25 mg) oral tablet 250 mcg 1 tabs, Oral, Daily, # 90 tabs, 1 Refill(s), Pharmacy: [facility] #[id number], 1 tabs Oral Daily Start Date: 09/21/15 Status: Ordered Diltiazem Hydrochloride ER 300 mg/24 hours oral capsule, extended release 300 mg 1 caps, Oral, Daily, # 90 caps, 3 Refill(s), Pharmacy: [facility] # [id number], 1 caps Oral Daily Start Date: 09/18/15 Status: Ordered finasteride 5 mg oral tablet 5 mg 1 tabs, Oral, Daily, # 90 tabs, 1 Refill(s), Pharmacy: [facility] # [id number], 1 tabs Oral Daily Start Date: 09/18/15 Status: Ordered Tylenol Caplet 325 mg oral tablet 1 tabs, Oral, Daily, as needed for pain, 0 Refill(s) Start Date: 06/03/14 Status: Ordered warfarin 5 mg oral tablet 5 mg 1 tabs, Oral, Daily, TAKE 5MG M/W/F AND TAKE 2.5MG TU/THURS/SAT/SUN., # 78 tabs, 1 Refill(s), Pharmacy: [facility] #[id number], 1 tabs Oral Daily,Instr: TAKE 5MG M/W/F AND TAKE 2.5MG TU/THURS/SAT/SUN. Start Date: 09/18/15 Status: Ordered Results No data available for this section Immunizations Vaccine Date Refusal Reason influenza virus vaccine, inactivated 05/07/15 influenza virus vaccine, live 05/08/12 pneumococcal 23-polyvalent vaccine 01/22/07 Procedures Procedure Date Related Diagnosis Body Site Colonoscopy 2011 Colonoscopy; diverticulitis 2008 septoplasty and Endoscopic cauterization 2008 Lithotripsy, cysto; kidney stones 2007 Colonoscopy abnormal1 2005 Pacemaker insertion, Permanent2 2003 Prostate Biopsy- Negative 2000 Viral meningitis3 1999 Syncope4 1995 Bilateral Inguinal Herniorrhaphy 1988 Kidney stone5 1984 Appendectomy 1964 Ganglion cyst removal right wrist 1961 Polio6 1951 1Adenomatous polyps and diverticuli 2Sick sinus syndrome 3Hospitalization 4Hospitalization 5Hospitalization 6Hospitalization Social History Social History Type Response Smoking Status Never smoker Assessment and Plan Referrals to Other Providers Referred by: Leander Zhao MD
--- OUTSIDE RECORDS SUMMARY | 2016-11-21 11:44 | XMS REPORT | Referral Summary ---
Author Author [facility] Organization [facility] Address Unknown Phone Unavailable Care Team Providers Care Ski Maker Wood Name Role Phone Nayely Dorsey Primary Care Physician [phone] Encounter Date(s): 04/27/15 - 04/27/15 [facility] [address] [place] [id number] Discharge Disposition: 01-Home or Self Care Attending Physician: Leander Zhao MD Admitting Physician: Leander Zhao MD Referring Physician: Juan Mace MD Vital Signs No data available for this section Problem List Condition Effective Dates Status Health Status Informant Actinic Resolved keratosis(Confirmed) Allergies(Confirmed) Resolved Anemia(Confirmed) Resolved Anticoagulation Resolved adequate with anticoagulant therapy, 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 terminal(Confirmed) Aortic valve Resolved disorder(Confirmed) Atrial Resolved fibrillation(Confirm [...] Daily, # 90 tabs, 1 Refill(s), Pharmacy: [facility] # [id number], 1 tabs Oral Daily Start Date: 09/21/15 Status: Ordered digoxin 250 mcg (0.25 mg) oral tablet 250 mcg 1 tabs, Oral, Daily, # 90 tabs, 1 Refill(s), Pharmacy: [facility] #[id number], 1 tabs Oral Daily Start Date: 09/21/15 Status: Ordered Diltiazem Hydrochloride ER 300 mg/24 hours oral capsule, extended release 300 mg 1 caps, Oral, Daily, # 90 caps, 3 Refill(s), Pharmacy: [facility] # [id number], 1 caps Oral Daily Start Date: 09/18/15 Status: Ordered finasteride 5 mg oral tablet 5 mg 1 tabs, Oral, Daily, # 90 tabs, 1 Refill(s), Pharmacy: [facility] # [id number], 1 tabs Oral Daily Start Date: 09/18/15 Status: Ordered Tylenol Caplet 325 mg oral tablet 1 tabs, Oral, Daily, as needed for pain, 0 Refill(s) Start Date: 06/03/14 Status: Ordered warfarin 5 mg oral tablet 5 mg 1 tabs, Oral, Daily, TAKE 5MG M/W/F AND TAKE 2.5MG TU/THURS/SAT/SUN., # 78 tabs, 1 Refill(s), Pharmacy: [facility] #[id number], 1 tabs Oral Daily,Instr: TAKE 5MG M/W/F [...] Smoking Status Never smoker Assessment and Plan No data available for this section
--- OUTSIDE RECORDS SUMMARY | 2016-11-21 11:45 | XMS REPORT | Continuity of Care Document ---
Author Author [facility] Organization [facility] Address Unknown Phone Unavailable Allergies Active Description Code Type Severity Reaction Onset Reported/Identified Relationship to Patient Clinical Status Yes iodine NKMA N/A Unknown Adverse Reaction Yes IV Contrast Drug Allergy Adverse Reaction 08/03/2012 Yes iodine NKMA N/A Adverse Reaction Unknown 11/21/2013 Medications Problems Date Dx Coded Attending Type Code Diagnosis Diagnosed By 08/06/2012 Leander Zhao MD Final 427.31 ATRIAL FIBRILLATION 08/06/2012 Leander Zhao MD Final V53.31 ADJUST CARDIAC PACEMAKER Procedures Results Encounters ACCT No. Visit Date/Time Discharge Status Pt. Type Provider Facility Loc./Unit Complaint [id number] 08/06/2012 06:00:00 2012 12:05:00 DIS Outpatient Leander Zhao MD [facility] on [address]
--- OUTSIDE RECORDS SUMMARY | 2016-11-21 11:45 | XMS REPORT | Referral Summary ---
Author Organization Unknown Address Unknown Phone Unavailable Care Team Providers Care Account Services Specialist Name Role Phone Gabriel Mace Primary Care Physician [phone] Encounter [facility] Date(s): 09/16/14 - 09/16/14 [facility] [address] [place] [address] [place] [id number] Discharge Diagnosis: Acute URI Discharge Disposition: Home or Self Care Attending Physician: Juan Mace MD Admitting Physician: Juan Mace MD Vital Signs Most recent to 1 oldest [Reference Range]: Temperature Oral 36.8 degC [35.8-37.3 degC] (09/16/14 3:01 PM) Peripheral Pulse 74 bpm Rate [60-100 bpm] (09/16/14 3:01 PM) Respiratory Rate 16 br/min [14-20 br/min] (09/16/14 3:01 PM) Blood Pressure 108/62 mmHg [90-140/60-90 mmHg] (09/16/14 3:01 PM) Most recent to 1 oldest [Reference Range]: SpO2 95 % (09/16/14 3:01 PM) Problem List Condition Effective Dates Status Health Status Informant Actinic Resolved keratosis(Confirmed) Allergies(Confirmed) Resolved Anemia(Confirmed) Resolved Anticoagulation Resolved adequate with anticoagulant therapy, 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) Aortic valve Resolved disorder(Confirmed) Atrial Resolved fibrillation(Confirm [...] Daily, # 90 tabs, 1 Refill(s), Pharmacy: [facility], 1 tabs Oral Daily Start Date: 04/14/14 Status: Ordered digoxin 250 mcg (0.25 mg) oral tablet 1 tabs, Oral, Daily, # 90 tabs, 1 Refill(s), Pharmacy: [facility], 1 tabs Oral Daily Start Date: 04/14/14 Status: Ordered diltiazem 240 mg/24 hours oral capsule, extended release 1 caps, Oral, Daily, # 90 tabs, 1 Refill(s), Pharmacy: [facility], 1 caps Oral Daily Start Date: 04/14/14 Status: Ordered finasteride 5 mg oral tablet 1 tabs, Oral, Daily, # 90 tabs, 1 Refill(s), Pharmacy: [facility], 1 tabs Oral Daily Start Date: 04/14/14 Status: Ordered Guaiatussin AC 10 mg-100 mg/5 mL oral syrup 5 mL, Oral, q4hr, as needed for cough, X 7 days, # 210 mL, 0 Refill(s) Start Date: 09/16/14 Stop Date: 09/23/14 Status: Ordered Tylenol Caplet 325 mg oral tablet 1 tabs, Oral, Daily, as needed for pain, 0 Refill(s) Start Date: 06/03/14 Status: Ordered warfarin 5 mg oral tablet 1 tabs, Oral, Daily, # 78 tabs, 1 Refill(s), Pharmacy: [facility], 1 tabs Oral Daily Start Date: 04/14/14 Status: Ordered Results No data available for this section Immunizations Vaccine Date Refusal Reason influenza virus vaccine, live 05/08/12 pneumococcal 23-polyvalent vaccine 01/22/07 Procedures Procedure Date Related Diagnosis Body Site Colonoscopy 02/21/11 Colonoscopy; diverticulitis 11/29/10 septoplasty and Endoscopic cauterization 07/24/07 Lithotripsy, cysto; kidney stones 07/24/06 Bilateral Inguinal Herniorrhaphy 07/24/87 Appendectomy 07/24/63 Ganglion cyst removal right wrist 07/24/61 Pacemaker insertion, Permanent Prostate Biopsy- Negative Social History Social History Type Response Smoking Status Never smoker Assessment and Plan Extracted from: Title: Ambulatory Patient Education Author: Juan Mace MD Date: Family Medicine Upper Respiratory Infection, Adult An upper respiratory infection (URI) is also sometimes known as the common cold. The upper respiratory tract includes the nose, sinuses, throat, trachea, and bronchi. Bronchi are the airways leading to the lungs. Most people improve within 1 week, but symptoms can last up to 2 weeks. A residual cough may last even longer. CAUSES Many different viruses can infect the tissues lining the upper respiratory tract. The tissues become irritated and inflamed and often become very moist. Mucus production is also common. A cold is contagious. You can easily spread the virus to others by oral contact. This includes kissing, sharing a glass, coughing, or sneezing. Touching your mouth or nose and then touching a surface, which is then touched by another person, can also spread the virus. SYMPTOMS Symptoms typically develop 1 to 3 days after you come in contact with a cold virus. Symptoms vary from person to person. They may include: Runny nose. Sneezing. Nasal congestion. Sinus irritation. Sore throat. Loss of voice (laryngitis ). Cough. Fatigue. Muscle aches. Loss of appetite. Headache. Low-grade fever. DIAGNOSIS You might diagnose your own cold based on familiar symptoms, since most people get a cold 2 to 3 times a year. Your caregiver can confirm this based on your exam. Most importantly, your caregiver can check that your symptoms are not due to another disease such as strep throat, sinusitis, pneumonia, asthma, or epiglottitis. Blood tests, throat tests, and X-rays are not necessary to diagnose a common cold, but they may sometimes be helpful in excluding other more serious diseases. Your caregiver will decide if any further tests are required. RISKS AND COMPLICATIONS You may be at risk for a more severe case of the common cold if you smoke cigarettes, have chronic heart disease (such as heart failure) or lung disease ( such as asthma), or if you have a weakened immune system. The very young and very old are also at risk for more serious infections. Bacterial sinusitis, middle ear infections, and bacterial pneumonia can complicate the common cold. The common cold can worsen asthma and chronic obstructive pulmonary disease ( COPD). Sometimes, these complications can require emergency medical care and may be life-threatening. PREVENTION The best way to protect against getting a cold is to practice good hygiene. Avoid oral or hand contact with people with cold symptoms. Wash your hands often if contact occurs. There is no clear evidence that vitamin C, vitamin E, echinacea, or exercise reduces the chance of developing a cold. However, it is always recommended to get plenty of rest and practice good nutrition. TREATMENT Treatment is directed at relieving symptoms. There is no cure. Antibiotics are not effective, because the infection is caused by a virus, not by bacteria. Treatment may include: Increased fluid intake. Sports drinks offer valuable electrolytes, sugars, and fluids. Breathing heated mist or steam (vaporizer or shower). Eating chicken soup or other clear broths, and maintaining good nutrition. Getting plenty of rest. Using gargles or lozenges for comfort. Controlling fevers with ibuprofen or acetaminophen as directed by your caregiver. Increasing usage of your inhaler if you have asthma. Zinc gel and zinc lozenges, taken in the first 24 hours of the common cold, can shorten the duration and lessen the severity of symptoms. Pain medicines may help with fever, muscle aches, and throat pain. A variety of non-prescription medicines are available to treat congestion and runny nose. Your caregiver can make recommendations and may suggest nasal or lung inhalers for other symptoms. HOME CARE INSTRUCTIONS Only take [id number] or prescription medicines for pain, discomfort, or fever as directed by your caregiver. Use a warm mist humidifier or inhale steam from a shower to increase air moisture. This may keep secretions moist and make it easier to breathe. Drink enough water and fluids to keep your urine clear or pale yellow. Rest as needed. Return to work when your temperature has returned to normal or as your caregiver advises. You may need to stay home longer to avoid infecting others. You can also use a face mask and careful hand washing to prevent spread of the virus. SEEK MEDICAL CARE IF: After the first few days, you feel you are getting worse rather than better. You need your caregiver's advice about medicines to control symptoms. You develop chills, worsening shortness of breath, or brown or red sputum. These may be signs of pneumonia. You develop yellow or brown nasal discharge or pain in the face, especially when you bend forward. These may be signs of sinusitis. You develop a fever, swollen neck glands, pain with swallowing, or white areas in the back of your throat. These may be signs of strep throat. SEEK IMMEDIATE MEDICAL CARE IF: You have a fever. You develop severe or persistent headache, ear pain, sinus pain, or chest pain. You develop wheezing, a prolonged cough, cough up blood, or have a change in your usual mucus (if you have chronic lung disease). You develop sore muscles or a stiff neck. Document Released: 01/03/2002 Document Revised: 10/01/2012 Document Reviewed: [employer] Patient Information 2014 [employer]. Follow Up With: Where: When: Juan Mace [address] [place] [address] Drive; [place] [address] [facility] (1) Within 3 to 5 days, only if needed Comments: Extracted from: Title: Office Visit Note Author: Juan Mace MD Date: 09/16/14 Assessment/Plan Acute URI This seems to be viral at this time. He was advised to use Guiatuss AC 1 teaspoon full every 4 hours as needed forcough. He was advised to call back if he develops signs or symptoms of a secondary bacterial infection. Ordered: Office Visit Level 3 Est 55383 Orders: codeine-guaiFENesin, 5 mL, Oral, q4hr, as needed for cough, X 7 days, # 210 mL, 0 Refill(s)
--- OUTSIDE RECORDS SUMMARY | 2016-11-21 11:45 | XMS REPORT | Referral Summary ---
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) Aortic valve Resolved disorder(Confirmed) Atrial Resolved fibrillation(Confirm [...] Daily, # 90 tabs, 1 Refill(s), Pharmacy: [facility], 1 tabs Oral Daily Start Date: 04/16/15 Status: Ordered digoxin 250 mcg (0.25 mg) oral tablet 250 mcg 1 tabs, Oral, Daily, # 90 tabs, 1 Refill(s), Pharmacy: [facility], 1 tabs Oral Daily Start Date: 04/16/15 Status: Ordered Diltiazem Hydrochloride ER 300 mg/24 hours oral capsule, extended release 300 mg 1 caps, Oral, Daily, # 90 caps, 3 Refill(s), Pharmacy: [facility], 1 caps Oral Daily Start Date: 05/14/15 Status: Ordered finasteride 5 mg oral tablet 5 mg 1 tabs, Oral, Daily, # 90 tabs, 1 Refill(s), Pharmacy: [facility], 1 tabs Oral Daily Start Date: 04/16/15 Status: Ordered Tylenol Caplet 325 mg oral tablet 1 tabs, Oral, Daily, as needed for pain, 0 Refill(s) Start Date: 06/03/14 Status: Ordered warfarin 5 mg oral tablet 5 mg 1 tabs, Oral, Daily, TAKE 5MG M/W/F AND TAKE 2.5MG TU/THURS/SAT/SUN., # 78 tabs, 1 Refill(s), Pharmacy: [facility], 1 tabs Oral Daily, Instr:TAKE [...] pacemaker Ordered: Office Visit Level 3 Est 76735 Pm Device Progr Eval Sngl [id number] Return to Clinic 2.Persistent atrial fibrillation Ordered: Office Visit Level 3 Est 14382 Pm Device Progr Eval Sngl [id number] Return to Clinic Orders: warfarin, 5 mg 1 tabs, Oral, Daily, TAKE 5MG // AND TAKE 2.5MG / /MON/SUN., # 78 tabs, 1 Refill(s), 1 tabs Oral Daily Referrals to Other Providers Referred by: Leander Zhao MD
--- OUTSIDE RECORDS SUMMARY | 2016-11-21 11:45 | XMS REPORT | Referral Summary ---
Author Author [facility] Organization [facility] Address Unknown Phone Unavailable Care Team Providers Care Mohel Name Role Phone Nayely Dorsey Primary Care Physician [phone] Encounter [facility] Date(s): 04/18/16 - 04/18/16 [facility] [address] [place] [address]- Discharge Disposition: 01-Home or Self Care Attending Physician: Chidi Dorsey MD Admitting Physician: Chidi Dorsey MD Vital Signs No data available for this section Problem List Condition Effective Dates Status Health Status Informant Actinic Resolved keratosis(Confirmed) Allergies(Confirmed) Resolved Anemia(Confirmed) Resolved Anticoagulation Resolved adequate with anticoagulant therapy, 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) Aortic valve Resolved disorder(Confirmed) Atrial Resolved fibrillation(Confirm [...] Daily, # 90 tabs, 1 Refill(s), Pharmacy: [facility] # [id number], 1 tabs Oral Daily Start Date: 03/15/16 Status: Ordered digoxin 250 mcg (0.25 mg) oral tablet 250 mcg 1 tabs, Oral, Daily, # 90 tabs, 1 Refill(s), Pharmacy: [facility] #[id number], 1 tabs Oral Daily Start Date: 03/15/16 Status: Ordered Diltiazem Hydrochloride ER 300 mg/24 hours oral capsule, extended release 300 mg 1 caps, Oral, Daily, # 90 caps, 1 Refill(s), Pharmacy: [facility] # [id number], 1 caps Oral Daily Start Date: 03/15/16 Status: Ordered finasteride 5 mg oral tablet 5 mg 1 tabs, Oral, Daily, # 90 tabs, 1 Refill(s), Pharmacy: [facility] # [id number], 1 tabs Oral Daily Start Date: 03/15/16 Status: Ordered Tylenol Caplet 325 mg oral tablet 1 tabs, Oral, Daily, as needed for pain, 0 Refill(s) Start Date: 06/03/14 Status: Ordered warfarin 5 mg oral tablet 5 mg 1 tabs, Oral, Daily, TAKE 5MG M/W/F AND TAKE 2.5MG TU/THURS/SAT/SUN, or as directed based on INR., # 100 tabs, 1 Refill(s), Pharmacy: [facility] # [id number], 1 tabs Oral Daily,Instr:TAKE 5MG M/W/F AND TAKE 2.5MG TU/THURS/SAT/SUN, or as directed... Start Date: 03/15/16 Status: Ordered Results No data available for this section Immunizations Vaccine Date Refusal Reason influenza virus vaccine, inactivated 04/18/16 influenza virus vaccine, inactivated 05/07/15 influenza virus vaccine, live 05/08/12 pneumococcal 13-valent conjugate vaccine 04/18/16 pneumococcal 23-polyvalent vaccine 01/22/07 zoster vaccine live 03/04/16 Procedures Procedure Date Related Diagnosis Body Site Colonoscopic polypectomy1 12/24/15 Colonoscopy 2011 Colonoscopy; diverticulitis 2007 septoplasty and [...]
--- OUTSIDE RECORDS SUMMARY | 2016-11-21 11:45 | XMS REPORT | Referral Summary ---
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) Aortic valve Resolved disorder(Confirmed) Atrial Resolved [...] Daily, # 90 tabs, 1 Refill(s), Pharmacy: [facility], 1 tabs Oral Daily Start Date: 04/16/15 Status: Ordered digoxin 250 mcg (0.25 mg) oral tablet 250 mcg 1 tabs, Oral, Daily, # 90 tabs, 1 Refill(s), Pharmacy: [facility], 1 tabs Oral Daily Start Date: 04/16/15 Status: Ordered Diltiazem Hydrochloride ER 300 mg/24 hours oral capsule, extended release 300 mg 1 caps, Oral, Daily, # 90 caps, 3 Refill(s), Pharmacy: [facility], 1 caps Oral Daily Start Date: 05/14/15 Status: Ordered finasteride 5 mg oral tablet 5 mg 1 tabs, Oral, Daily, # 90 tabs, 1 Refill(s), Pharmacy: [facility], 1 tabs Oral Daily Start Date: 04/16/15 Status: Ordered Tylenol Caplet 325 mg oral tablet 1 tabs, Oral, Daily, as needed for pain, 0 Refill(s) Start Date: 06/03/14 Status: Ordered warfarin 5 mg oral tablet 5 mg 1 tabs, Oral, Daily, TAKE 5MG M/W/F AND TAKE 2.5MG TU/THURS/SAT/SUN., # 78 tabs, 1 Refill(s), Pharmacy: [facility], 1 tabs Oral Daily, Instr:TAKE [...] pacemaker Ordered: Office Visit Level 3 Est 92611 Pm Device Progr Eval Sngl 10160 Return to Clinic 2.Persistent atrial fibrillation Ordered: Office Visit Level 3 Est 28913 Pm Device Progr Eval Sngl [id number] Return to Clinic Orders: warfarin, 5 mg 1 tabs, Oral, Daily, TAKE 5MG // AND TAKE 2.5MG / /MON/SUN., # 78 tabs, 1 Refill(s), 1 tabs Oral Daily Referrals to Other Providers Referred by: Leander Zhao MD
--- OUTSIDE RECORDS SUMMARY | 2016-11-21 11:45 | XMS REPORT | Referral Summary ---
Author Author [facility] Organization [facility] Address Unknown Phone Unavailable Care Team Providers Care Vtc Technician Name Role Phone Nayely Dorsey Primary Care Physician [phone] Encounter Date(s): 01/26/15 - 01/26/15 [facility] [address] [place] [address] Discharge Disposition: 01-Home or Self Care Attending Physician: Leander Zhao MD Admitting Physician: Leander Zhao MD Referring Physician: Juan Mace MD Vital Signs No data available for this section Problem List Condition Effective Dates Status Health Status Informant Actinic Resolved keratosis(Confirmed) Allergies(Confirmed) Resolved Anemia(Confirmed) Resolved Anticoagulation Resolved adequate with anticoagulant therapy, 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) Aortic valve Resolved disorder(Confirmed) Atrial Resolved fibrillation(Confirm [...] Daily, # 90 tabs, 1 Refill(s), Pharmacy: [facility], 1 tabs Oral Daily Start Date: 04/16/15 Status: Ordered digoxin 250 mcg (0.25 mg) oral tablet 250 mcg 1 tabs, Oral, Daily, # 90 tabs, 1 Refill(s), Pharmacy: [facility], 1 tabs Oral Daily Start Date: 04/16/15 Status: Ordered Diltiazem Hydrochloride ER 300 mg/24 hours oral capsule, extended release 300 mg 1 caps, Oral, Daily, # 90 caps, 3 Refill(s), Pharmacy: [facility], 1 caps Oral Daily Start Date: 05/14/15 Status: Ordered finasteride 5 mg oral tablet 5 mg 1 tabs, Oral, Daily, # 90 tabs, 1 Refill(s), Pharmacy: [facility], 1 tabs Oral Daily Start Date: 04/16/15 Status: Ordered Tylenol Caplet 325 mg oral tablet 1 tabs, Oral, Daily, as needed for pain, 0 Refill(s) Start Date: 06/03/14 Status: Ordered warfarin 5 mg oral tablet 5 mg 1 tabs, Oral, Daily, TAKE 5MG M/W/F AND TAKE 2.5MG TU/THURS/SAT/SUN., # 78 tabs, 1 Refill(s), Pharmacy: [facility], 1 tabs Oral Daily, Instr:TAKE [...] Pacemaker insertion, Permanent2 2004 Prostate Biopsy- Negative 2001 Viral meningitis3 2000 Syncope4 1996 Bilateral Inguinal Herniorrhaphy 1988 Kidney stone5 1984 Appendectomy 1964 Ganglion cyst removal right wrist 1961 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
--- OUTSIDE RECORDS SUMMARY | 2016-11-21 11:45 | XMS REPORT | Referral Summary ---
Author Author [facility] Organization [facility] Address Unknown Phone Unavailable Care Team Providers Care Gymnastics Instructor Name Role Phone Nayely Dorsey Primary Care Physician [phone] Encounter VC Date(s): 04/16/15 - 04/16/15 [facility] [address] [place] [address] [place] [id number]- Discharge Diagnosis: Atrial fibrillation Discharge Diagnosis: Adequate anticoagulation on anticoagulant therapy Discharge Diagnosis: Essential hypertension Discharge Diagnosis: Status post placement of cardiac pacemaker Discharge Diagnosis: BPH (benign prostatic hyperplasia) Discharge Disposition: -Home or Self Care Attending Physician: Juan Mace MD Referring Physician: Juan Mace MD Vital Signs Most recent to 1 oldest [Reference Range]: Temperature Oral 36.2 degC [35.8-37.3 degC] (04/16/15 11:01 AM) Peripheral Pulse 62 bpm Rate [60-100 bpm] (04/16/15 11:01 AM) Respiratory Rate 16 br/min [14-20 br/min] (04/16/15 11:01 AM) Blood Pressure 122/72 mmHg [90-140/60-90 mmHg] (04/16/15 11:01 AM) SpO2 94 % (04/16/15 11:01 AM) Problem List Condition Effective Dates Status Health Status Informant Actinic Resolved keratosis(Confirmed) Allergies(Confirmed) Resolved Anemia(Confirmed) Resolved Anticoagulation Resolved adequate with anticoagulant therapy, snf(Confirmed) Aortic valve Resolved disorder(Confirmed) Atrial Resolved fibrillation(Confirm [...] Daily, # 90 tabs, 1 Refill(s), Pharmacy: [facility] # [id number], 1 tabs Oral Daily Start Date: 09/21/15 Status: Ordered digoxin 250 mcg (0.25 mg) oral tablet 250 mcg 1 tabs, Oral, Daily, # 90 tabs, 1 Refill(s), Pharmacy: [facility] #[id number], 1 tabs Oral Daily Start Date: 09/21/15 Status: Ordered Diltiazem Hydrochloride ER 300 mg/24 hours oral capsule, extended release 300 mg 1 caps, Oral, Daily, # 90 caps, 3 Refill(s), Pharmacy: [facility] # [id number], 1 caps Oral Daily Start Date: 09/18/15 Status: Ordered finasteride 5 mg oral tablet 5 mg 1 tabs, Oral, Daily, # 90 tabs, 1 Refill(s), Pharmacy: [facility] # [id number], 1 tabs Oral Daily Start Date: 09/18/15 Status: Ordered Tylenol Caplet 325 mg oral tablet 1 tabs, Oral, Daily, as needed for pain, 0 Refill(s) Start Date: 06/03/14 Status: Ordered warfarin 5 mg oral tablet 5 mg 1 tabs, Oral, Daily, TAKE 5MG M// AND TAKE 2.5MG //SAT/SUN., # 78 tabs, 1 Refill(s), Pharmacy: [facility] #[id number], 1 tabs Oral Daily,Instr: TAKE 5MG M// AND TAKE 2.5MG //MON/SUN. 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 Your arteries are the blood vessels that carry blood from your heart throughout your body. A blood pressure reading consists of a higher number over a lower number, such as 110/72. The higher number (systolic) is the pressure inside your arteries when your heart pumps. The lower number (diastolic) is the pressure inside your arteries when your heart relaxes. Ideally you want your blood pressure below 120/80. Hypertension forces your heart to work harder to pump blood. Your arteries may become narrow or stiff. Having hypertension puts you at risk for heart disease, stroke, and other problems. RISK FACTORS Some risk factors for high blood pressure are controllable. Others are not. Risk factors you cannot control include: Race. You may be at higher risk if you are . Age. Risk increases with age. Gender. Men are at higher risk than women before age 45 years. After age 65 , women are at higher risk than men. Risk factors you can control include: Not getting enough exercise or physical activity. Being overweight. Getting too much fat, sugar, calories, or salt in your diet. Drinking too much alcohol. SIGNS AND SYMPTOMS Hypertension does not usually cause signs or symptoms. Extremely high blood pressure (hypertensive crisis) may cause headache, anxiety, shortness of breath , and nosebleed. DIAGNOSIS To check if you have hypertension, your health care provider will measure your blood pressure while you are seated, with your arm held at the level of your heart. It should be measured at least twice using the same arm. Certain conditions can cause a difference in blood pressure between your right and left arms. A blood pressure reading that is higher than normal on one occasion does not mean that you need treatment. If one blood pressure reading is high, ask your health care provider about having it checked again. TREATMENT Treating high blood pressure includes making lifestyle changes and possibly taking medicine. Living a healthy lifestyle can help lower high blood pressure. You may need to change some of your habits. Lifestyle changes may include: Following the DASH diet. This diet is high in fruits, vegetables, and whole grains. It is low in salt, red meat, and added sugars. Getting at least 2 hours of brisk physical activity every week. Losing weight if necessary. Not smoking. Limiting alcoholic beverages. Learning ways to reduce stress. If lifestyle changes are not enough to get your blood pressure under control, your health care provider may prescribe medicine. You may need to take more than one. Work closely with your health care provider to understand the risks and benefits. HOME CARE INSTRUCTIONS Have your blood pressure rechecked as directed by your health care provider. Take medicines only as directed by your health care provider. Follow the directions carefully. Blood pressure medicines must be taken as prescribed. The medicine does not work as well when you skip doses. Skipping doses also puts you at risk for problems. Do not smoke. Monitor your blood pressure at home as directed by your health care provider. SEEK MEDICAL CARE IF: You think you are having a reaction to medicines taken. You have recurrent headaches or feel dizzy. You have swelling in your ankles. You have trouble with your vision. SEEK IMMEDIATE MEDICAL CARE IF: You develop a severe headache or confusion. You have unusual weakness, numbness, or feel faint. You have severe chest or abdominal pain. You vomit repeatedly. You have trouble breathing. MAKE SURE YOU: Understand these instructions. Will watch your condition. Will get help right away if you are not doing well or get worse. Document Released: 07/10/2006 Document Revised: 11/24/2014 Document Reviewed: [facility] Patient Information 2015 [facility]. This information is not intended to replace advice given to you by your health care provider. Make sure you discuss any questions you have with your health care provider. Follow Up With: Where: When: Juan Mace [address]; [facility] [place] [address] [place] ([facility] In 6 months 10/15/2015 Comments: Extracted from: Title: Office Visit Note Author: Juan Mace MD Date: 04/16/15 Assessment/Plan Adequate anticoagulation on anticoagulant therapy He will continue his present medication and will have repeat INR in one month. Atrial fibrillation As noted above he continues on chronic anticoagulation therapy. BPH (benign prostatic hyperplasia) He will continue his same medication. Essential hypertension This is well controlled. He will continue his same medication. Status post placement of cardiac pacemaker His pacemaker has been functioning well. Orders: allopurinol, 100 mg 1 tabs, Oral, Daily, # 90 tabs, 1 Refill(s), Pharmacy: [facility], 1 tabs Oral Daily digoxin, 250 mcg 1 tabs, Oral, Daily, # 90 tabs, 1 Refill(s), Pharmacy: [facility], 1 tabs Oral Daily diltiazem, 240 mg 1 caps, Oral, Daily, # 90 tabs, 1 Refill(s), Pharmacy: [facility], 1 caps Oral Daily finasteride, 5 mg 1 tabs, Oral, Daily, # 90 tabs, 1 Refill(s), Pharmacy: [facility], 1 tabs Oral Daily warfarin, 5 mg 1 tabs, Oral, Daily, TAKE 5MG M/W/F AND TAKE 2.5MG TU/THURS/SAT /SUN., # 78 tabs, 1 Refill(s), Pharmacy: [facility], 1 tabs Oral Daily,Instr:TAKE 5MG M/W/F AND TAKE 2.5MG TU/THURS/SAT/SUN. Digoxin Level
--- OUTSIDE RECORDS SUMMARY | 2016-11-21 11:45 | XMS REPORT | Referral Summary ---
Author Author [facility] Organization [facility] Address Unknown Phone Unavailable Care Team Providers Care Manpower Development Advisor Name Role Phone Nayely Dorsey Primary Care Physician [phone] Encounter VC Date(s): 08/18/15 - 08/18/15 [facility] [address] [place] [id number]- Discharge Disposition: 01-Home or Self Care Attending Physician: Chidi Dorsey MD Admitting Physician: Chidi Dorsey MD Vital Signs Most recent to 1 oldest [Reference Range]: Blood Pressure 160/90 mmHg [90-140/60-90 mmHg] *HI* (08/18/15 9:53 AM) Problem List Condition Effective Dates Status Health Status Informant Actinic Resolved keratosis(Confirmed) Allergies(Confirmed) Resolved Anemia(Confirmed) Resolved Anticoagulation Resolved adequate with anticoagulant therapy, mcfp(Confirmed) Aortic valve Resolved disorder(Confirmed) Atrial Resolved fibrillation(Confirm [...] Daily, # 90 tabs, 1 Refill(s), Pharmacy: [facility], 1 tabs Oral Daily Start Date: 04/16/15 Status: Ordered digoxin 250 mcg (0.25 mg) oral tablet 250 mcg 1 tabs, Oral, Daily, # 90 tabs, 1 Refill(s), Pharmacy: [facility], 1 tabs Oral Daily Start Date: 04/16/15 Status: Ordered Diltiazem Hydrochloride ER 300 mg/24 hours oral capsule, extended release 300 mg 1 caps, Oral, Daily, # 90 caps, 3 Refill(s), Pharmacy: [facility], 1 caps Oral Daily Start Date: 05/14/15 Status: Ordered finasteride 5 mg oral tablet 5 mg 1 tabs, Oral, Daily, # 90 tabs, 1 Refill(s), Pharmacy: [facility], 1 tabs Oral Daily Start Date: 04/16/15 Status: Ordered Tylenol Caplet 325 mg oral tablet 1 tabs, Oral, Daily, as needed for pain, 0 Refill(s) Start Date: 06/03/14 Status: Ordered warfarin 5 mg oral tablet 5 mg 1 tabs, Oral, Daily, TAKE 5MG M/W/F AND TAKE 2.5MG TU/THURS/SAT/SUN., # 78 tabs, 1 Refill(s), Pharmacy: [facility], 1 tabs Oral Daily, Instr:TAKE 5MG M/W/F AND TAKE 2.5MG TU/THURS/SAT/SUN. Start Date: 04/16/15 Status: Ordered Results Hematology Most recent to 1 oldest [Reference Range]: WBC [4.8-10.8 8.6 10*3/uL 10*3/uL] (08/18/15 10:28 AM) RBC [4.60-6.20] 5.50 (08/18/15 10:28 AM) Hgb [14.0-18.0 15.9 gm/dL gm/dL] (08/18/15 10:28 AM) Hct [42.0-52.0 %] 46.2 % (08/18/15 10:28 AM) MCV [82.0-99.0 fL] 84.0 fL (08/18/15 10:28 AM) MCH [27.0-32.0 pg] 28.9 pg (08/18/15 10:28 AM) MCHC [32.0-36.0 34.4 gm/dL gm/dL] (08/18/15 10:28 AM) RDW [11.5-14.5 %] 13.2 % (08/18/15 10:28 AM) Platelet [150-400 256 10*3/uL 10*3/uL] (08/18/15 10:28 AM) MPV [8.8-14.8 fL] 9.7 fL (08/18/15 10:28 AM) Immature 0.1 % Granulocytes (08/18/15 10:28 AM) [0.0-1.0 %] Neutrophils [51-75 65 % %] (08/18/15 10:28 AM) Lymphocytes [20-46 22 % %] (08/18/15 10:28 AM) Monocytes [4-11 %] 11 % (08/18/15 10:28 AM) Eosinophils [0-4 %] 2 % (08/18/15 10:28 AM) Basophils [0-2 %] 0 % (08/18/15 10:28 AM) Neutro Absolute 5.56 10*3 [1.90-7.00 10*3] (08/18/15 10:28 AM) Lymph Absolute 1.89 10*3 [0.80-3.30 10*3] (08/18/15 10:28 AM) [place] Absolute 0.96 10*3 [0.30-1.00 10*3] (08/18/15 10:28 AM) Eos Absolute 0.17 10*3 [0.00-0.50 10*3] (08/18/15 10:28 AM) Baso Absolute 0.03 10*3 [0.00-0.20 10*3] (08/18/15 10:28 AM) Coagulation Most recent to 1 oldest [Reference Range]: PT Venous (08/18/15 10:28 AM) INR [0.8-1.2] 2.1 1 *HI* (08/18/15 10:28 AM) 1Result Comment: Normal (no anticoagulant): 0.8 - 1.2 Units Routine Therapeutic Range: 2.0 - 3.0 Units High Risk Therapeutic Range: 2.5 - 3.5 Units Chemistry Most recent to 1 oldest [Reference Range]: Sodium Lvl [135-144 139 mEq/L mEq/L] (08/18/15 10:28 AM) Potassium Lvl 4.5 mEq/L [3.5-5.2 mEq/L] (08/18/15 10:28 AM) Chloride [99-111 105 mEq/L mEq/L] (08/18/15 10:28 AM) CO2 [23-31 mEq/L] 26 mEq/L (08/18/15 10:28 AM) AGAP [3-20] 8 (08/18/15 10:28 AM) BUN [8-26 mg/dL] 15 mg/dL (08/18/15 10:28 AM) Glucose Lvl [70-99 96 mg/dL mg/dL] (08/18/15 10:28 AM) Creatinine Lvl 0.98 mg/dL [0.72-1.25 mg/dL] (08/18/15 10:28 AM) eGFR [>60 mL/min] >60 mL/min 1 (08/18/15 10:28 AM) Calcium Lvl 9.0 mg/dL [8.9-10.5 mg/dL] (08/18/15 10:28 AM) Albumin Lvl [3.4-4.8 3.9 gm/dL gm/dL] (08/18/15 10:28 AM) Total Protein 6.3 gm/dL [6.2-8.1 gm/dL] (08/18/15 10:28 AM) Globulin [1.8-4.0 2.4 gm/dL gm/dL] (08/18/15 10:28 AM) ALT [0-55 U/L] 19 U/L (08/18/15 10:28 AM) AST [5-34 U/L] 17 U/L (08/18/15 10:28 AM) Alk Phos [40-150 66 U/L U/L] (08/18/15 10:28 AM) Bili Total [0.2-1.2 0.6 mg/dL mg/dL] (08/18/15 10:28 AM) Uric Acid [3.5-7.2 6.4 mg/dL mg/dL] (08/18/15 10:28 AM) 1Result Comment: Multiply eGFR results by 1.21 for race. Urinalysis Most recent to 1 oldest [Reference Range]: UA Color Yellow (08/18/15 10:34 AM) UA Appear Clear (08/18/15 10:34 AM) UA pH [5.0-8.0] 6.0 (08/18/15 10:34 AM) UA Leuk Est Negative [Negative] (08/18/15 10:34 AM) UA Nitrite Negative [Negative] (08/18/15 10:34 AM) UA Protein Negative [Negative] (08/18/15 10:34 AM) UA Glucose Negative [Negative] (08/18/15 10:34 AM) UA Ketones Negative [Negative] (08/18/15 10:34 AM) UA Urobilinogen 0.2 mg/dL [<1.0 mg/dL] (08/18/15 10:34 AM) UA Bili [Negative] Negative (08/18/15 10:34 AM) UA Blood [Negative] Negative (08/18/15 10:34 AM) UA Spec Grav 1.010 [1.003-1.030] (08/18/15 10:34 AM) Type Voided (08/18/15 10:34 AM) Immunizations Vaccine Date Refusal Reason influenza virus [...] Ganglion cyst removal right wrist 1961 Polio6 1952 1Adenomatous polyps and diverticuli 2Sick sinus syndrome 3Hospitalization 4Hospitalization 5Hospitalization 6Hospitalization Social History Social History Type Response Smoking Status Never smoker Assessment and Plan Extracted from: Title: Ambulatory Patient Education Author: Chidi Dorsey MD Date: Family Medicine Atrial Flutter Atrial flutter is a heart rhythm that can cause the heart to beat very fast ( tachycardia). It originates in the upper chambers of the heart (atria). In atrial flutter, the top chambers of the heart (atria) often beat much faster than the bottom chambers of the heart (ventricles). Atrial flutter has a regular "saw toothed" appearance in an EKG readout. An EKG is a test that records the electrical activity of the heart. Atrial flutter can cause the heart to beat up to 150 beats per minute (BPM). Atrial flutter can either be short lived (paroxysmal) or permanent. CAUSES Causes of atrial flutter can be many. Some of these include: Heart related issues: Heart attack (myocardial infarction). Heart failure. Heart valve problems. Poorly controlled high blood pressure (hypertension). After open heart surgery. Lung related issues: A blood clot in the lungs (pulmonary embolism). Chronic obstructive pulmonary disease (COPD). Medications used to treat COPD can attribute to atrial flutter. Other related causes: Hyperthyroidism. Caffeine. Some decongestant cold medications. Low electrolyte levels such as potassium or magnesium. Cocaine. SYMPTOMS An awareness of your heart beating rapidly (palpitations). Shortness of breath. Chest pain. Low blood pressure (hypotension). Dizziness or fainting. DIAGNOSIS Different tests can be performed to diagnose atrial flutter. An EKG. Holter monitor. This is a 24-hour recording of your heart rhythm. You will also be given a diary. Write down all symptoms that you have and what you were doing at the time you experienced symptoms. Cardiac event monitor. This small device can be worn for up to 30 days. When you have heart symptoms, you will push a button on the device. This will then record your heart rhythm. Echocardiogram. This is an imaging test to look at your heart. Your caregiver will look at your heart valves and the ventricles. Stress test. This test can help determine if the atrial flutter is related to exercise or if coronary artery disease is present. Laboratory studies will look at certain blood levels like: Complete blood count (CBC). Potassium. Magnesium. Thyroid function. TREATMENT Treatment of atrial flutter varies. A combination of therapies may be used or sometimes atrial flutter may need only 1 type of treatment. Lab work: If your blood work, such as your electrolytes (potassium, magnesium) or your thyroid function tests, are abnormal, your caregiver will treat them accordingly. Medication: There are several different types of medications that can convert your heart to a normal rhythm and prevent atrial flutter from reoccurring. Nonsurgical procedures: Nonsurgical techniques may be used to control atrial flutter. Some examples include: Cardioversion. This technique uses either drugs or an electrical shock to restore a normal heart rhythm: Cardioversion drugs may be given through an intravenous (IV) line to help "reset" the heart rhythm. In electrical cardioversion, your caregiver shocks your heart with electrical energy. This helps to reset the heartbeat to a normal rhythm. Ablation. If atrial flutter is a persistent problem, an ablation may be needed. This procedure is done under mild sedation. High frequency radio-wave energy is used to destroy the area of heart tissue responsible for atrial flutter. SEEK IMMEDIATE MEDICAL CARE IF: You have: Dizziness. Near fainting or fainting. Shortness of breath. Chest pain or pressure. Sudden nausea or vomiting. Profuse sweating. If you have the above symptoms, call your local emergency service immediately! Do not drive yourself to the hospital. MAKE SURE YOU: Understand these instructions. Will watch your condition. Will get help right away if you are not doing well or get worse. Document Released: 11/26/2009 Document Revised: 11/24/2014 Document Reviewed: [facility] Patient Information 2015 [facility], [facility]. This information is not intended to replace advice given to you by your health care provider. Make sure you discuss any questions you have with your health care provider. No follow up information was provided. Extracted from: Title: Office Visit Note Author: Chidi Dorsey MD Date: 08/18/15 Assessment/Plan Anticoagulation adequate with anticoagulant therapy, mcfp This issue was reviewed, appears stable, and current therapy continued except as mentioned. Appropriate lab was reviewed from the most recent appropriate entry and lab was ordered if needed in the cpoe/nursing orders, and follow up recommended generally in 90 days and no later then six months. Protime pending. Benign essential hypertension This issue was reviewed, appears stable, and current therapy continued except as mentioned. Appropriate lab was reviewed from the most recent appropriate entry and lab was ordered if needed in the cpoe /nursing orders, and follow up recommended generally in 90 days and no later then six months. The patient reports their blood pressure has been stable at home and is not having any significant or related problems. There has been no chest pain, chest pressure, soa/riley. Monitor bp and report if > 140/90. Ordered: CBC w/ Differential Comprehensive Metabolic Panel Urinalysis with Culture if Indicated Cardiac pacemaker This issue was reviewed, appears stable, and current therapy continued except as mentioned. Appropriate lab was reviewed from the most recent appropriate entry and lab was ordered if needed in the cpoe/nursing orders, and follow up recommended generally in 90 days and no later then six months. Sees [address] Zhao. Chronic gout This issue was reviewed, appears stable, and current therapy continued except as mentioned. Appropriate lab was reviewed from the most recent appropriate entry and lab was ordered if needed in the cpoe/nursing orders, and follow up recommended generally in 90 days and no later then six months. Lab pending. Ordered: Uric Acid Elevated blood sugar This issue was reviewed, appears stable, and current therapy continued except as mentioned. Appropriate lab was reviewed from the most recent appropriate entry and lab was ordered if needed in the cpoe/nursing orders, and follow up recommended generally in 90 days and no later then six months. Lab reviewed and pending. Kidney stone The patient's issue is nearly or completely resolved. There is no further issues or testing desired by them at this time. Persistent atrial fibrillation This issue was reviewed, appears stable, and current therapy continued except as mentioned. Appropriate lab was reviewed from the most recent appropriate entry and lab was ordered if needed in the cpoe /nursing orders, and follow up recommended generally in 90 days and no later then six months. Sees [address] Zhao. Ordered: PT Prostate cancer; family history This issue was reviewed, appears stable, and current therapy continued except as mentioned. Appropriate lab was reviewed from the most recent appropriate entry and lab was ordered if needed in the cpoe /nursing orders, and follow up recommended generally in 90 days and no later then six months. Sees [address] SOLIS. Skin neoplasm The patient's issue is nearly or completely resolved. There is no further issues or testing desired by them at this time. Sees Dr. CHOUDHARY.
--- OUTSIDE RECORDS SUMMARY | 2016-11-21 11:45 | XMS REPORT | Continuity of Care Document ---
Author Author [facility] Organization [facility] Address Unknown Phone Unavailable Support Name Relationship Address Phone CONG WELCH MD Caregiver [address] [place] [address] [place] [address] Unavailable CHRYSTAL BRAVO FACS, MD Caregiver [address] [place] [address] [place] [address] Unavailable SIL RIVERA Next Of Kin [address] [place] [phone] Insurance Providers Guarantor Junior Rivera Address [address] [place] [address] Email DENIED PT PORTAL Payer Medicare Policy Number [id number] Subscriber's Name Junior Rivera Relationship 18 Self Payer [facility] Policy Number [id number] Subscriber's Name Junior Rivera Relationship 18 Self Group Number [id number] Advance Directives Directive Response Recorded Date/Time Dr Franks Resuscitation Status Full Code 12/23/15 11:52am Resuscitation Documents on File Yes 12/24/15 7:26am DPOA for Healthcare Only Yes 12/24/15 7:26am Problems No problem information available. Medications Current Home Medications Medication Dose Units Route Directions Days Qty Instructions Start Date Allopurinol 100 Mg Tablet 1 Tab Oral Daily 05/10/09 Digoxin (Digitek) 250 Mcg Tablet 1 Tab Oral Daily 05/10/09 Diltiazem Hcl (Diltiazem Er) 300 Mg Capsule.er 300 Mg Oral Daily 12/23/15 Finasteride (Proscar) 5 Mg Tablet 1 Tab Oral Daily 05/10/09 Warfarin Sodium 2.5 Mg Tablet 2.5 Mg Oral Daily TAKE ON MON// SAT/SUN 12/23/15 Warfarin Sodium (Coumadin) 5 Mg Tablet 5 Mg Oral M//05/10/09 Social History Social History Problem Response Recorded Date/Time Onset Date Status Chewing Tobacco Status No 12/24/2015 7:26am Not Applicable Not Applicable Hx Substance Use No 12/24/2015 7:26am Not Applicable Not Applicable Hx Alcohol Use No 12/24/2015 7:26am Not Applicable Not Applicable Query Response Start Date Stop Date Smoking Status Never smoker Hospital Discharge Instructions No hospital discharge instructions. Plan of Care Discharge Date 12/24/15 10:32am Prescriptions See Medication Section Functional Status Query Response Date Recorded Ability to complete ADL's impeded by No change December 24, 2015 7:26am Allergies, Adverse Reactions, Alerts Allergen Type Severity Reaction Status Last Updated Iodine Allergy Unknown Active 05/10/09 Immunizations Query Response on File Recorded Date/Time Hx Influenza Vaccination Y 12/24/15 7:26am Hx Pneumococcal Vaccination No 12/24/15 7:26am Hx Influenza Vaccination Y 12/24/15 7:26am Vital Signs Acute Vital Signs Vital Response Date/Time Temperature (Fahrenheit) 96.9 deg F (96.8 - 99.1) 12/24/2015 9:39am Temperature (Calculated Celsius) 36.30090 degrees C (36.0 - 37.3) 12/24/2015 9:39am Temperature Source Temporal 12/24/2015 9:39am Pulse Rate (adult) 62 bpm (60 - 100) 12/24/2015 10:20am Respiratory Rate 14 breaths/min (10 - 20) 12/24/2015 10:20am O2 Sat by Pulse Oximetry 94 % (90 - 100) 12/24/2015 10:20am Oxygen Delivery Method Room Air 12/24/2015 10:20am Blood Pressure 122/67 mm Hg 12/24/2015 10:20am Blood Pressure Source Automatic Cuff 12/24/2015 10:20am Height (Feet) 5 feet 12/24/2015 7:10am Height (Inches) 9.50 inches 12/24/2015 7:10am Weight (Kilograms) 91.100 kg 12/24/2015 7:10am Body Mass Index (BMI) 29.2 12/24/2015 7:10am Results No known relevant diagnostic tests, laboratory data and/or discharge summary. Procedures Procedure Status Date Provider(s) Colonoscopy Completed 12/24/15 CHRYSTAL BRAVO MD, FACS, CWS Encounters Encounter Location Arrival/Admit Date Discharge/Depart Date Attending Provider Departed [facility] 12/24/15 7:00am 12/24/15 10 :32am CHRYSTAL BRAVO FACSS MD
--- OUTSIDE RECORDS SUMMARY | 2016-11-21 11:45 | XMS REPORT | Referral Summary ---
Author Author [facility] Organization [facility] Address Unknown Phone Unavailable Care Team Providers Care Construction Materials Tester Name Role Phone Nayely Dorsey Primary Care Physician [phone] Encounter [facility] [id number] Date(s): 08/30/16 - 08/30/16 [facility] [address] [place] [id number] [place] Discharge Diagnosis: Persistent atrial fibrillation Discharge Diagnosis: Benign essential hypertension Discharge Diagnosis: History of pacemaker Discharge Disposition: 01-Home or Self Care Attending Physician: Leander Zhao MD Admitting Physician: Leander Zhao MD Vital Signs Most recent to 1 oldest [Reference Range]: Peripheral Pulse 62 bpm Rate [60-100 bpm] (08/30/16 10:00 AM) Blood Pressure 124/72 mmHg [90-140/60-90 mmHg] (08/30/16 10:00 AM) Problem List Condition Effective Dates Status Health Status Informant Actinic Resolved keratosis(Confirmed) Allergies(Confirmed) Resolved Anemia(Confirmed) Resolved Anticoagulation Resolved adequate with anticoagulant therapy, 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) Aortic valve Resolved disorder(Confirmed) Atrial Resolved [...] Daily, # 90 tabs, 1 Refill(s), Pharmacy: [facility] # [id number], 1 tabs Oral Daily Start Date: 03/15/16 Status: Ordered digoxin 250 mcg (0.25 mg) oral tablet 250 mcg 1 tabs, Oral, Daily, # 90 tabs, 1 Refill(s), Pharmacy: [facility] #[id number], 1 tabs Oral Daily Start Date: 03/15/16 Status: Ordered Diltiazem Hydrochloride ER 300 mg/24 hours oral capsule, extended release 300 mg 1 caps, Oral, Daily, # 90 caps, 1 Refill(s), Pharmacy: [facility] # [id number], 1 caps Oral Daily Start Date: 03/15/16 Status: Ordered finasteride 5 mg oral tablet 5 mg 1 tabs, Oral, Daily, # 90 tabs, 1 Refill(s), Pharmacy: [facility] # [id number], 1 tabs Oral Daily Start Date: 03/15/16 Status: Ordered Tylenol Caplet 325 mg oral tablet 1 tabs, Oral, Daily, as needed for pain, 0 Refill(s) Start Date: 06/03/14 Status: Ordered warfarin 5 mg oral tablet 5 mg 1 tabs, Oral, Daily, TAKE 5MG M/W/F AND TAKE 2.5MG TU/THURS/SAT/SUN, or as directed based on INR., # 100 tabs, 1 Refill(s), Pharmacy: [facility] # [id number], 1 tabs Oral Daily,Instr:TAKE 5MG M/W/F AND [...] Lithotripsy, cysto; kidney stones 2007 Colonoscopy abnormal2 2004 Pacemaker insertion, Permanent3 2003 Prostate Biopsy- Negative 2000 Viral meningitis4 1999 [...]
--- OUTSIDE RECORDS SUMMARY | 2016-11-21 11:45 | XMS REPORT | Referral Summary ---
Author Author [facility] Organization [facility] Address Unknown Phone Unavailable Care Team Providers Care Pharmacology Teacher Name Role Phone Nayely Dorsey Primary Care Physician [phone] Encounter Date(s): 03/20/15 - 03/20/15 [facility] [address] [place] [address] [place] [phone] [place] Discharge Diagnosis: Scalp lump Discharge Diagnosis: Actinic keratosis Discharge Diagnosis: History of squamous cell carcinoma of skin Discharge Disposition: 01-Home or Self Care Attending Physician: Travis Agosto MD Admitting Physician: Travis Agosto MD Referring Physician: Juan Mace MD Vital Signs Most recent to 1 oldest [Reference Range]: Temperature Tympanic 36.6 degC [36.6-38.1 degC] (03/20/15 9:44 AM) Blood Pressure 122/68 mmHg [90-140/60-90 mmHg] (03/20/15 9:44 AM) Problem List Condition Effective Dates Status Health Status Informant Actinic Resolved keratosis(Confirmed) Allergies(Confirmed) Resolved Anemia(Confirmed) Resolved Anticoagulation Resolved adequate with anticoagulant therapy, 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) Aortic valve Resolved disorder(Confirmed) Atrial Resolved fibrillation(Confirm [...] Daily, # 90 tabs, 1 Refill(s), Pharmacy: [facility] # [id number], 1 tabs Oral Daily Start Date: 09/21/15 Status: Ordered digoxin 250 mcg (0.25 mg) oral tablet 250 mcg 1 tabs, Oral, Daily, # 90 tabs, 1 Refill(s), Pharmacy: [facility] #[id number], 1 tabs Oral Daily Start Date: 09/21/15 Status: Ordered Diltiazem Hydrochloride ER 300 mg/24 hours oral capsule, extended release 300 mg 1 caps, Oral, Daily, # 90 caps, 3 Refill(s), Pharmacy: [facility] # [id number], 1 caps Oral Daily Start Date: 09/18/15 Status: Ordered finasteride 5 mg oral tablet 5 mg 1 tabs, Oral, Daily, # 90 tabs, 1 Refill(s), Pharmacy: [facility] # [id number], 1 tabs Oral Daily Start Date: 09/18/15 Status: Ordered Tylenol Caplet 325 mg oral tablet 1 tabs, Oral, Daily, as needed for pain, 0 Refill(s) Start Date: 06/03/14 Status: Ordered warfarin 5 mg oral tablet 5 mg 1 tabs, Oral, Daily, TAKE 5MG M/W/F AND TAKE 2.5MG TU/THURS/SAT/SUN., # 78 tabs, 1 Refill(s), Pharmacy: [facility] #[id number], 1 tabs Oral Daily,Instr: TAKE 5MG M/W/F [...] Extracted from: Title: Ambulatory Patient Education Author: Travis Agosto MD Date: Family Medicine Actinic Keratosis Actinic keratosis is a precancerous growth on the skin. This means it could develop into skin cancer if it is not treated. About 1% of actinic keratoses turn into skin cancer within a year. It is important to have all such growths removed to prevent them from developing into skin cancer. CAUSES Actinic keratosis is caused by getting too much ultraviolet (UV) radiation from the sun or other UV light sources. RISK FACTORS Factors that increase your chances of getting actinic keratosis include: Having light-colored skin and blue eyes. Having blonde or red hair. Spending a lot of time in the sun. Age. The risk of actinic keratosis increases with age. SYMPTOMS Actinic keratosis growths look like scaly, rough spots of skin. They can be as small as a pinhead or as big as a quarter. They may itch, hurt, or feel sensitive. Sometimes there is a little tag of pink or floyd skin growing off them. In some cases, actinic keratoses are easier felt than seen. They do not go away with the use of moisturizing lotions or creams. Actinic keratoses appear most often on areas of skin that get a lot of sun exposure. These areas include the: Scalp. Face. Ears. Lips. Upper back. Backs of the hands. Forearms. DIAGNOSIS Your caregiver can usually tell what is wrong by performing a physical exam. A tissue sample (biopsy) may also be taken and examined under a microscope. TREATMENT Actinic keratosis can be treated several ways. Most treatments can be done in your caregiver's office. Treatment options may include: Curettage. A tool is used to gently scrape off the growth. Cryosurgery. Liquid nitrogen is applied to the growth to freeze it. The growth eventually falls off the skin. Medicated creams, such as 5-fluorouracil or imiquimod. The medicine destroys the cells in the growth. Chemical peels. Chemicals are applied to the growth and the outer layers of skin are peeled off. Photodynamic therapy. A drug that makes your skin more sensitive to light is applied to the skin. A strong, blue light is aimed at the skin and destroys the growth. PREVENTION To prevent future sun damage: Try to avoid the sun between 10:00 a.m. and 4:00 p.m. when it is the strongest. Use a sunscreen or sunblock with SPF 30 or greater. Apply sunscreen at least 30 minutes before exposure to the sun. Always wear protective hats, clothing, and sunglasses with UV protection. Avoid medicines, herbs, and foods that increase your sensitivity to sunlight. Avoid tanning beds. HOME CARE INSTRUCTIONS If your skin was covered with a bandage, change and remove the bandage as directed by your caregiver. Keep the treated area dry as directed by your caregiver. Apply any creams as prescribed by your caregiver. Follow the directions carefully. Check your skin regularly for any changes. Visit a skin doctor (oyster tonger) every year for a skin exam. SEEK MEDICAL CARE IF: Your skin does not heal and becomes irritated, red, or bleeds. You notice any changes or new growths on your skin. Document Released: 10/06/2009 Document Revised: 10/01/2012 Document Reviewed: [facility] Patient Information 2015 [employer] [facility]. This information is not intended to replace advice given to you by your health care provider. Make sure you discuss any questions you have with your health care provider. No follow up information was provided. Extracted from: Title: Office Visit Note Author: Travis Agosto MD Date: 03/20/15 Assessment/Plan 1.History of squamous cell carcinoma of skin Ordered: Office Visit Level 1 2.Actinic keratosis Ordered: Office Visit Level 1 3.Scalp lump Ordered: Office Visit Level 1 Plan: Cryotherapy to actinic keratotic-appearing lesions upon face forehead and dorsum of hands. I informed the patient that I did not see any suspicious skin lesions that required excisional biopsy. There is no evidence for recurrence of his squamous cell carcinoma involving the left ear upon physical examination. I recommended the patient that these multiple actinic keratotic lesions should be ablated utilizing cryotherapy. Each lesion was treated in a standard freeze to thaw technique. A total of18 lesions were treated. Patient tolerated the procedure without difficulty. Patient was given routine cryotherapy instructions and informed to follow up with me if the areas of concern did not completely resolve over the next 6-8 weeks.
--- OUTSIDE RECORDS SUMMARY | 2016-11-21 11:45 | XMS REPORT | Referral Summary ---
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) Aortic valve Resolved disorder(Confirmed) Atrial Resolved fibrillation(Confirm [...] Daily, # 90 tabs, 1 Refill(s), Pharmacy: [facility], 1 tabs Oral Daily Start Date: 04/16/15 Status: Ordered digoxin 250 mcg (0.25 mg) oral tablet 250 mcg 1 tabs, Oral, Daily, # 90 tabs, 1 Refill(s), Pharmacy: [facility], 1 tabs Oral Daily Start Date: 04/16/15 Status: Ordered diltiazem 240 mg/24 hours oral capsule, extended release 240 mg 1 caps, Oral, Daily, # 90 tabs, 1 Refill(s), Pharmacy: [facility], 1 caps Oral Daily Start Date: 04/16/15 Status: Ordered finasteride 5 mg oral tablet 5 mg 1 tabs, Oral, Daily, # 90 tabs, 1 Refill(s), [facility], 1 tabs Oral Daily Start Date: 04/16/15 Status: Ordered Tylenol Caplet 325 mg oral tablet 1 tabs, Oral, Daily, as needed for pain, 0 Refill(s) Start Date: 06/03/14 Status: Ordered warfarin 5 mg oral tablet 5 mg 1 tabs, Oral, Daily, TAKE 5MG M/W/F AND TAKE 2.5MG TU/THURS/SAT/SUN., # 78 tabs, 1 Refill(s), [facility], 1 tabs Oral Daily, Instr:TAKE [...] Released: 07/10/2006 Document Revised: 11/24/2014 Document Reviewed: [employer] Patient Information 2015 [employer]. This information is not intended to replace advice given to you by your health care provider. Make sure you discuss any questions you have with your health care provider. Follow Up With: Where: When: Juan [address]; Via [facility] [place] [address] [email or web address] In 6 months 10/15/2015 Comments: Extracted from: [...] Daily, # 90 tabs, 1 Refill(s), Pharmacy: [facility], 1 tabs Oral Daily digoxin, 250 mcg 1 tabs, Oral, Daily, # 90 tabs, 1 Refill(s), Pharmacy: [facility], 1 tabs Oral Daily diltiazem, 240 mg 1 caps, Oral, Daily, # 90 tabs, 1 Refill(s), Pharmacy: [facility], 1 caps Oral Daily finasteride, 5 mg 1 tabs, Oral, Daily, # 90 tabs, 1 Refill(s), Pharmacy: [facility], 1 tabs Oral Daily warfarin, 5 mg 1 tabs, Oral, Daily, TAKE 5MG M/W/F AND TAKE 2.5MG TU/THURS/SAT /SUN., # 78 tabs, 1 Refill(s), [facility], 1 tabs Oral Daily,Instr:TAKE 5MG M/W/F AND TAKE 2.5MG TU/THURS/SAT/SUN. Digoxin Level
--- OUTSIDE RECORDS SUMMARY | 2016-11-21 11:46 | XMS REPORT | Referral Summary ---
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) Aortic valve Resolved disorder(Confirmed) Atrial Resolved fibrillation(Confirm [...] Daily, # 90 tabs, 1 Refill(s), Pharmacy: [facility], 1 tabs Oral Daily Start Date: 04/16/15 Status: Ordered digoxin 250 mcg (0.25 mg) oral tablet 250 mcg 1 tabs, Oral, Daily, # 90 tabs, 1 Refill(s), Pharmacy: [facility], 1 tabs Oral Daily Start Date: 04/16/15 Status: Ordered Diltiazem Hydrochloride ER 300 mg/24 hours oral capsule, extended release 300 mg 1 caps, Oral, Daily, # 90 caps, 3 Refill(s), Pharmacy: [facility], 1 caps Oral Daily Start Date: 05/14/15 Status: Ordered finasteride 5 mg oral tablet 5 mg 1 tabs, Oral, Daily, # 90 tabs, 1 Refill(s), Pharmacy: [facility], 1 tabs Oral Daily Start Date: 04/16/15 Status: Ordered Tylenol Caplet 325 mg oral tablet 1 tabs, Oral, Daily, as needed for pain, 0 Refill(s) Start Date: 06/03/14 Status: Ordered warfarin 5 mg oral tablet 5 mg 1 tabs, Oral, Daily, TAKE 5MG M/W/F AND TAKE 2.5MG TU/THURS/SAT/SUN., # 78 tabs, 1 Refill(s), Pharmacy: [facility], 1 tabs Oral Daily, Instr:TAKE [...] pacemaker Ordered: Office Visit Level 3 Est 46213 Pm Device Progr Eval Sngl [id number] Return to Clinic 2.Persistent atrial fibrillation Ordered: Office Visit Level 3 Est 51766 Pm Device Progr Eval Sngl [id number] Return to Clinic Orders: warfarin, 5 mg 1 tabs, Oral, Daily, TAKE 5MG // AND TAKE 2.5MG / /MON/SUN., # 78 tabs, 1 Refill(s), 1 tabs Oral Daily Referrals to Other Providers Referred by: Leander Zhao MD
--- OUTSIDE RECORDS SUMMARY | 2016-11-21 11:46 | XMS REPORT | Referral Summary ---
Author Author [facility] Organization [facility] Address Unknown Phone Unavailable Care Team Providers Care Complex Director Name Role Phone Nayely Dorsey Primary Care Physician [phone] Encounter [facility] Date(s): 12/08/15 - 12/08/15 [facility] [address] [place] [address] [place] [phone] [place] Discharge Diagnosis: History of adenomatous polyp of colon Discharge Diagnosis: Atrial fibrillation Discharge Disposition: 01-Home or Self Care Attending Physician: Travis Agosto MD Admitting Physician: Travis Agosto MD Referring Physician: Chidi Dorsey MD Vital Signs Most recent to 1 oldest [Reference Range]: Temperature Tympanic 36.8 degC [36.6-38.1 degC] (12/08/15 1:10 PM) Blood Pressure 120/70 mmHg [90-140/60-90 mmHg] (12/08/15 1:10 PM) Problem List Condition Effective Dates Status Health Status Informant Actinic Resolved keratosis(Confirmed) Allergies(Confirmed) Resolved Anemia(Confirmed) Resolved Anticoagulation Resolved adequate with anticoagulant therapy, 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) Aortic valve Resolved disorder(Confirmed) Atrial Resolved fibrillation(Confirm [...] Daily, # 90 tabs, 1 Refill(s), Pharmacy: [facility] # [id number], 1 tabs Oral Daily Start Date: 09/21/15 Status: Ordered digoxin 250 mcg (0.25 mg) oral tablet 250 mcg 1 tabs, Oral, Daily, # 90 tabs, 1 Refill(s), Pharmacy: [facility] #[id number], 1 tabs Oral Daily Start Date: 09/21/15 Status: Ordered Diltiazem Hydrochloride ER 300 mg/24 hours oral capsule, extended release 300 mg 1 caps, Oral, Daily, # 90 caps, 3 Refill(s), Pharmacy: [facility] # [id number], 1 caps Oral Daily Start Date: 09/18/15 Status: Ordered finasteride 5 mg oral tablet 5 mg 1 tabs, Oral, Daily, # 90 tabs, 1 Refill(s), Pharmacy: [facility] # [id number], 1 tabs Oral Daily Start Date: 09/18/15 Status: Ordered Tylenol Caplet 325 mg oral tablet 1 tabs, Oral, Daily, as needed for pain, 0 Refill(s) Start Date: 06/03/14 Status: Ordered warfarin 5 mg oral tablet 5 mg 1 tabs, Oral, Daily, TAKE 5MG M/W/F AND TAKE 2.5MG TU/THURS/SAT/SUN., # 78 tabs, 1 Refill(s), Pharmacy: [facility] #[id number], 1 tabs Oral Daily,Instr: TAKE 5MG M/W/F [...] Author: Travis Agosto MD Date: Family Medicine Colon Polyps Polyps are lumps of extra tissue growing inside the body. Polyps can grow in the large intestine (colon). Most colon polyps are noncancerous (benign). However, some colon polyps can become cancerous over time. Polyps that are larger than a pea may be harmful. To be safe, caregivers remove and test all polyps. CAUSES Polyps form when mutations in the genes cause your cells to grow and divide even though no more tissue is needed. RISK FACTORS There are a number of risk factors that can increase your chances of getting colon polyps. They include: Being older than 50 years. Family history of colon polyps or colon cancer. Long-term colon diseases, such as colitis or Crohn disease. Being overweight. Smoking. Being inactive. Drinking too much alcohol. SYMPTOMS Most small polyps do not cause symptoms. If symptoms are present, they may include: Blood in the stool. The stool may look dark red or black. Constipation or diarrhea that lasts longer than 1 week. DIAGNOSIS People often do not know they have polyps until their caregiver finds them during a regular checkup. Your caregiver can use 4 tests to check for polyps: Digital rectal exam. The caregiver wears gloves and feels inside the rectum. This test would find polyps only in the rectum. Barium enema. The caregiver puts a liquid called barium into your rectum before taking X-rays of your colon. Barium makes your colon look white. Polyps are dark, so they are easy to see in the X-ray pictures. Sigmoidoscopy. A thin, flexible tube (sigmoidoscope) is placed into your rectum. The sigmoidoscope has a light and tiny camera in it. The caregiver uses the sigmoidoscope to look at the last third of your colon. Colonoscopy. This test is like sigmoidoscopy, but the caregiver looks at the entire colon. This is the most common method for finding and removing polyps. TREATMENT Any polyps will be removed during a sigmoidoscopy or colonoscopy. The polyps are then tested for cancer. PREVENTION To help lower your risk of getting more colon polyps: Eat plenty of fruits and vegetables. Avoid eating fatty foods. Do not smoke. Avoid drinking alcohol. Exercise every day. Lose weight if recommended by your caregiver. Eat plenty of calcium and folate. Foods that are rich in calcium include milk, cheese, and broccoli. Foods that are rich in folate include chickpeas, kidney beans, and spinach. HOME CARE INSTRUCTIONS Keep all follow-up appointments as directed by your caregiver. You may need periodic exams to check for polyps. SEEK MEDICAL CARE IF: You notice bleeding during a bowel movement. This information is not intended to replace advice given to you by your health care provider. Make sure you discuss any questions you have with your health care provider. Document Released: 04/05/2005 Document Revised: 04/28/2015 Document Reviewed: [employer] Patient Information 2015 [employer]. No follow up information was provided.
--- OUTSIDE RECORDS SUMMARY | 2016-11-21 11:46 | XMS REPORT | Referral Summary ---
Author Author [facility] Organization [facility] Address Unknown Phone Unavailable Care Team Providers Care Food Adviser Name Role Phone Nayely Dorsey Primary Care Physician [phone] Encounter Date(s): 09/15/16 - 09/15/16 [facility] [address] [place] [id number]- Discharge Diagnosis: Atrial fibrillation Discharge Diagnosis: Actinic keratosis Discharge Diagnosis: Benign essential hypertension Discharge Diagnosis: GERD without esophagitis Discharge Diagnosis: Anticoagulation adequate with anticoagulant therapy, hand thermal cutter Discharge Diagnosis: Elevated blood sugar Discharge Diagnosis: Hyperlipidemia Discharge Diagnosis: Hyperuricemia Discharge Diagnosis: Cardiac pacemaker Discharge Diagnosis: H/O tooth extraction Discharge Diagnosis: Aortic valve disorder Discharge Disposition: 01-Home or Self Care Attending Physician: Chidi Dorsey MD Admitting Physician: Chidi Dorsey MD Vital Signs Most recent to 1 oldest [Reference Range]: Blood Pressure 140/80 mmHg [90-140/60-90 mmHg] (09/15/16 8:13 AM) Problem List Condition Effective Dates Status Health Status Informant Actinic Resolved keratosis(Confirmed) Allergies(Confirmed) Resolved Anemia(Confirmed) Resolved Anticoagulation Resolved adequate with anticoagulant therapy, penitentiary(Confirmed) Aortic valve Resolved disorder(Confirmed) Atrial Resolved fibrillation(Confirm ed) Atrial Resolved fibrillation(Confirm ed) Benign essential Active hypertension(Confirm ed) Cardiac Resolved dysrhythmia(Confirme d) Cardiac Resolved pacemaker(Confirmed) Cardiomegaly(Confirm Resolved ed) CHF (congestive Resolved heart failure)(Confirmed) Colonic Resolved polyps(Confirmed) Diverticulitis(Confi Resolved rmed) Diverticulosis of Resolved colon(Confirmed) Dysphagia(Confirmed) Resolved Gastro esophageal Resolved reflux(Confirmed) Chronic Active gout(Confirmed) Hyperlipidemia(Confi Resolved rmed) 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25 mg) oral tablet 250 mcg 1 tabs, Oral, Daily, # 90 tabs, 1 Refill(s), [facility]acy: [facility] [id number], 1 tabs Oral Daily Start Date: 09/15/16 Status: Ordered DilTIAZem Hydrochloride ER 300 mg/24 hours oral capsule, extended release 300 mg 1 caps, Oral, Daily, # 90 caps, 1 Refill(s), [facility]acy: [facility] [id number], 1 caps Oral Daily Start Date: 09/15/16 Status: Ordered Eliquis Oral, BID, 0 Refill(s) Start Date: 09/14/16 Status: Ordered finasteride 5 mg oral tablet 5 mg 1 tabs, Oral, Daily, # 90 tabs, 1 Refill(s), Pharmacy: [facility] [id number], 1 tabs Oral Daily Start Date: 09/15/16 Status: Ordered Tylenol Caplet 325 mg oral tablet 1 tabs, Oral, Daily, as needed for pain, 0 Refill(s) Start Date: 06/03/14 Status: Ordered warfarin 5 mg oral tablet 5 mg 1 tabs, Oral, Daily, TAKE 5MG M/W/ AND TAKE 2.5MG TU/THURS/SAT/SUN, or as directed based on INR., # 100 tabs, 1 Refill(s), Pharmacy: [id number], 1 tabs Oral Daily,Instr:TAKE 5MG M/W/F AND TAKE 2.5MG TU/THURS/SAT/SUN, or as direct... Start Date: 09/15/16 Status: Ordered Results No data available for [...] Colonoscopy; diverticulitis 2007 septoplasty and Endoscopic cauterization 2007 Lithotripsy, cysto; kidney stones 2007 Colonoscopy abnormal2 [...] Released: 07/10/2006 Document Revised: 07/31/2015 Document Reviewed: [employer] Interactive Patient Education 2016 [employer] Ophthalmology Gestational Diabetes Mellitus Gestational diabetes mellitus, often simply referred to as gestational diabetes , is a type of diabetes that some women develop during . In gestational diabetes, the pancreas does not make enough insulin (a hormone), the cells are less responsive to the insulin that is made (insulin resistance), or both.Normally, insulin moves sugars from food into the tissue cells. The tissue cells use the sugars for energy. The lack of insulin or the lack of normal response to insulin causes excess sugars to build up in the blood instead of going into the tissue cells. As a result, high blood sugar ( hyperglycemia) develops. The effect of high sugar (glucose) levels can cause many problems. RISK FACTORS You have an increased chance of developing gestational diabetes if you have a family history of diabetes and also have one or more of the following risk factors: A body mass index over 30 (obesity). A previous with gestational diabetes. An older age at the time of . If blood glucose levels are kept in the normal range during , women can have a healthy . If your blood glucose levels are not well controlled, there may be risks to you, your unborn baby (fetus), your labor and delivery, or your baby. SYMPTOMS If symptoms are experienced, they are much like symptoms you would normally expect during . The symptoms of gestational diabetes include: Increased thirst (polydipsia). Increased urination (polyuria). Increased urination during the night (nocturia). Weight loss. This weight loss may be rapid. Frequent, recurring infections. Tiredness (fatigue). Weakness. Vision changes, such as blurred vision. Fruity smell to your breath. Abdominal pain. DIAGNOSIS Diabetes is diagnosed when blood glucose levels are increased. Your blood glucose level may be checked by one or more of the following blood tests: A fasting blood glucose test. You will not be allowed to eat for at least 8 hours before a blood sample is taken. A random blood glucose test. Your blood glucose is checked at any time of the day regardless of when you ate. An oral glucose tolerance test (OGTT). Your blood glucose is measured after you have not eaten (fasted) for 13 hours and then after you drink a glucose-containing beverage. Since the hormones that cause insulin resistance are highest at about 2428 weeks of a , an OGTT is usually performed during that time. If you have risk factors, you may be screened for undiagnosed type 2 diabetes at your first visit. TREATMENT Gestational diabetes should be managed first with diet and exercise. Medicines may be added only if they are needed. You will need to take diabetes medicine or insulin daily to keep blood glucose levels in the desired range. You will need to match insulin dosing with exercise and healthy food choices. If you have gestational diabetes, your treatment goal is to maintain the following blood glucose levels: Before meals (preprandial): at or below 95 mg/dL. After meals (postprandial): One hour after a meal: at or below 140 mg/dL. Two hours after a meal: at or below 120 mg/dL. If you have pre-existing type 1 or type 2 diabetes, your treatment goal is to maintain the following blood glucose levels: Before meals, at bedtime, and overnight: 60-99 mg/dL. After meals: peak of 100-129 mg/dL. HOME CARE INSTRUCTIONS Have your hemoglobin A1c level checked twice a year. Perform daily blood glucose monitoring as directed by your health care provider. It is common to perform frequent blood glucose monitoring. Monitor urine ketones when you are ill and as directed by your health care provider. Take your diabetes medicine and insulin as directed by your health care provider to maintain your blood glucose level in the desired range. Never run out of diabetes medicine or insulin. It is needed every day. Adjust insulin based on your intake of carbohydrates. Carbohydrates can raise blood glucose levels but need to be included in your diet. Carbohydrates provide vitamins, minerals, and fiber which are an essential part of a healthy diet. Carbohydrates are found in fruits, vegetables, whole grains, dairy products, legumes, and foods containing added sugars. Eat healthy foods. Alternate 3 meals with 3 snacks. Maintain a healthy weight gain. The usual total expected weight gain varies according to your prepregnancy body mass index (BMI). Carry a medical alert card or wear your medical alert jewelry. Carry a 15-gram carbohydrate snack with you at all times to treat low blood glucose (hypoglycemia). Some examples of 15-gram carbohydrate snacks include: Glucose tablets, 3 or 4. Glucose gel, 15-gram tube. Raisins, 2 tablespoons (24 g). Jelly beans, 6. Animal crackers, 8. Fruit juice, regular soda, or low-fat milk, 4 ounces (120 mL). Gummy treats, 9. Recognize hypoglycemia. Hypoglycemia during occurs with blood glucose levels of 60 mg/dL and below. The risk for hypoglycemia increases when fasting or skipping meals, during or after intense exercise, and during sleep. Hypoglycemia symptoms can include: Tremors or shakes. Decreased ability to concentrate. Sweating. Increased heart rate. Headache. Dry mouth. Hunger. Irritability. Anxiety. Restless sleep. Altered speech or coordination. Confusion. Treat hypoglycemia promptly. If you are alert and able to safely swallow , follow the 15:15 rule: Take 1520 grams of rapid-acting glucose or carbohydrate. Rapid-acting options include glucose gel, glucose tablets, or 4 ounces (120 mL) of fruit juice, regular soda, or low-fat milk. Check your blood glucose level 15 minutes after taking the glucose. Take 1520 grams more of glucose if the repeat blood glucose level is still 70 mg/dL or below. Eat a meal or snack within 1 hour once blood glucose levels return to normal. Be alert to polyuria (excess urination) and polydipsia (excess thirst) which are early signs of hyperglycemia. An early awareness of hyperglycemia allows for prompt treatment. Treat hyperglycemia as directed by your health care provider. Engage in at least 30 minutes of physical activity a day or as directed by your health care provider. Ten minutes of physical activity timed 30 minutes after each meal is encouraged to control postprandial blood glucose levels. Adjust your insulin dosing and food intake as needed if you start a new exercise or sport. Follow your sick-day plan at any time you are unable to eat or drink as usual. Avoid tobacco and alcohol use. Keep all follow-up visits as directed by your health care provider. Follow the advice of your health care provider regarding your and post-delivery () appointments, meal planning, exercise, medicines , vitamins, blood tests, other medical tests, and physical activities. Perform daily skin and foot care. Examine your skin and feet daily for cuts, bruises, redness, nail problems, bleeding, blisters, or sores. Jensen your teeth and gums at least twice a day and floss at least once a day. Follow up with your dentist regularly. Schedule an eye exam during the first trimester of your or as directed by your health care provider. Share your diabetes management plan with your workplace or school. Stay up-to-date with immunizations. Learn to manage stress. Obtain ongoing diabetes education and support as needed. Learn about and consider your baby. You should have your blood sugar level checked 6-12 weeks after delivery. This is done with an oral glucose tolerance test (OGTT). SEEK MEDICAL CARE IF: You are unable to eat food or drink fluids for more than 6 hours. You have nausea and vomiting for more than 6 hours. You have a blood glucose level of 200 mg/dL and you have ketones in your urine. There is a change in mental status. You develop vision problems. You have a persistent headache. You have upper abdominal pain or discomfort. You develop an additional serious illness. You have diarrhea for more than 6 hours. You have been sick or have had a fever for a couple of days and are not getting better. SEEK IMMEDIATE MEDICAL CARE IF: You have difficulty breathing. You no longer feel the baby moving. You are bleeding or have discharge from your vagina. You start having premature contractions or labor. MAKE SURE YOU: Understand these instructions. Will watch your condition. Will get help right away if you are not doing well or get worse. This information is not intended to replace advice given to you by your health care provider. Make sure you discuss any questions you have with your health care provider. Document Released: 10/16/2001 Document Revised: 07/31/2015 Document Reviewed: [employer] Interactive Patient Education 2016 [employer] No follow up information was provided. Extracted from: Title: Office Visit Note Author: Chidi Dorsey MD Date: 09/15/16 Assessment/Plan Actinic keratosis The patient's issue is nearly or completely resolved. There is no further issues or testing desired by them at this time. Anticoagulation adequate with anticoagulant therapy, hand thermal cutter This issue was reviewed, appears stable, and current therapy continued except as mentioned. Appropriate lab was reviewed from the most recent appropriate entry and lab was ordered if needed in the cpoe/nursing orders, and follow up recommended generally in 90 days and no later then six months. PT here pending. He wants to use coumadin long termand not eliquis. Assessment/Plan 1.Persistent atrial fibrillation Ordered: Office Visit Level 4 Est 05004 Pm Device Progr Eval Sngl 06578 Return to Clinic 2.History of pacemaker Ordered: Office Visit Level 4 Est 57446 Pm Device Progr Eval Sngl 05064 Return to Clinic 3.Benign essential hypertension Ordered: Office Visit Level 4 Est 76322 Pm Device Progr Eval Sngl [id number] Return to Clinic Dictation performed with [employer] voice recognition [1] Conclusions: The left ventricular chamber size is normal. Global left ventricular wall motion and contractility are within normal limits. The ejection fraction visually appears 60-65%. Abnormal left ventricular diastolic function is observed. The left atrium is mild to moderately dilated. volume index not measured. The right ventricular cavity size is normal. The right atrial cavity size is normal. The aortic valve appears trileaflet. There is a trace of aortic regurgitation. There is mild mitral regurgitation. The tricuspid valve appears morphologically normal. There is mild tricuspid regurgitation. The pulmonic arterial systolic pressure is estimated at 34 mmHg. The inferior vena cava appears to be normal in size with normal collapse. [2] Aortic valve disorder This issue was reviewed, appears stable, and current therapy continued except as mentioned. Appropriate lab was reviewed from the most recent appropriate entry and lab was ordered if needed in the cpoe/nursing orders, and follow up recommended generally in 90 days and no later then six months. Atrial fibrillation This issue was reviewed, appears stable, and current therapy continued except as mentioned. Appropriate lab was reviewed from the most recent appropriate entry and lab was ordered if needed in the cpoe/nursing orders, and follow up recommended generally in 90 days and no later then six months. Has coumadin. Benign essential hypertension This issue was reviewed, [...] been no chest pain, chest pressure, soa/riley. The patient had an elevated blood pressure reading and is to monitor their bp and call with a report if consistently > 140/90. Ordered: CBC w/ Differential Comprehensive Metabolic Panel Cardiac pacemaker This issue was reviewed, appears stable, and current therapy continued except as mentioned. Appropriate lab was reviewed from the most recent appropriate entry and lab was ordered if needed in the cpoe/nursing orders, and follow up recommended generally in 90 days and no later then six months. [address] Zhao. Elevated blood sugar This issue was reviewed, appears stable, and current therapy continued except as mentioned. Appropriate lab was reviewed from the most recent appropriate entry and lab was ordered if needed in the cpoe/nursing orders, and follow up recommended generally in 90 days and no later then six months. Lab stable. GERD without esophagitis This issue was reviewed, appears stable, and current therapy continued except as mentioned. Appropriate lab was reviewed from the most recent appropriate entry and lab was ordered if needed in the cpoe/nursing orders, and follow up recommended generally in 90 days and no later then six months. H/O tooth extraction The patient's issue is nearly or completely resolved. There is no further issues or testing desired by them at this time. Amox 500mg po tid for five daysto have on hand. May affect coumadin if used. Hyperlipidemia This issue was reviewed, appears stable, and current therapy continued except as mentioned. Appropriate lab was reviewed from the most recent appropriate entry and lab was ordered if needed in the cpoe/nursing orders, and follow up recommended generally in 90 days and no later then six months. Lab stable. Hyperuricemia This issue was reviewed, appears stable, and current therapy continued except as mentioned. Appropriate lab was reviewed from the most recent appropriate entry and lab was ordered if needed in the cpoe/nursing orders, and follow up recommended generally in 90 days and no later then six months. Lab stable. Ordered: Uric Acid PSA pending for screening per him.
--- OUTSIDE RECORDS SUMMARY | 2016-11-21 11:46 | XMS REPORT | Referral Summary ---
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) Aortic valve Resolved disorder(Confirmed) Atrial Resolved [...] Daily, # 90 tabs, 1 Refill(s), Pharmacy: [facility], 1 tabs Oral Daily Start Date: 04/16/15 Status: Ordered digoxin 250 mcg (0.25 mg) oral tablet 250 mcg 1 tabs, Oral, Daily, # 90 tabs, 1 Refill(s), Pharmacy: [facility], 1 tabs Oral Daily Start Date: 04/16/15 Status: Ordered diltiazem 240 mg/24 hours oral capsule, extended release 240 mg 1 caps, Oral, Daily, # 90 tabs, 1 Refill(s), Pharmacy: [facility], 1 caps Oral Daily Start Date: 04/16/15 Status: Ordered finasteride 5 mg oral tablet 5 mg 1 tabs, Oral, Daily, # 90 tabs, 1 Refill(s), [facility], 1 tabs Oral Daily Start Date: 04/16/15 Status: Ordered Tylenol Caplet 325 mg oral tablet 1 tabs, Oral, Daily, as needed for pain, 0 Refill(s) Start Date: 06/03/14 Status: Ordered warfarin 5 mg oral tablet 5 mg 1 tabs, Oral, Daily, TAKE 5MG M/W/F AND TAKE 2.5MG TU/THURS/SAT/SUN., # 78 tabs, 1 Refill(s), [facility], 1 tabs Oral Daily, Instr:TAKE [...] 11/24/2014 Document Reviewed: [employer] Patient Information 2015 [employer]. This information is not intended to replace advice given to you by your health care provider. Make sure you discuss any questions you have with your health care provider. Follow Up With: Where: When: Juan [address]; Via [facility] [place] [address] [email or web address] In 6 months 10/15/2015 Comments: Extracted from: [...] Daily, # 90 tabs, 1 Refill(s), Pharmacy: [facility], 1 tabs Oral Daily digoxin, 250 mcg 1 tabs, Oral, Daily, # 90 tabs, 1 Refill(s), Pharmacy: [facility], 1 tabs Oral Daily diltiazem, 240 mg 1 caps, Oral, Daily, # 90 tabs, 1 Refill(s), Pharmacy: [facility], 1 caps Oral Daily finasteride, 5 mg 1 tabs, Oral, Daily, # 90 tabs, 1 Refill(s), Pharmacy: [facility], 1 tabs Oral Daily warfarin, 5 mg 1 tabs, Oral, Daily, TAKE 5MG M/W/F AND TAKE 2.5MG TU/THURS/SAT /SUN., # 78 tabs, 1 Refill(s), [facility], 1 tabs Oral Daily,Instr:TAKE 5MG M/W/F AND TAKE 2.5MG TU/THURS/SAT/SUN. Digoxin Level
--- OUTSIDE RECORDS SUMMARY | 2016-11-21 11:46 | XMS REPORT | Referral Summary ---
Author Author [facility] Organization [facility] Address Unknown Phone Unavailable Care Team Providers Care Chief Building Inspector Name Role Phone Nayely Dorsey Primary Care Physician [phone] Encounter Date(s): 03/03/15 - 03/03/15 [facility] [address] [place] [id number] Discharge Diagnosis: Presence of permanent cardiac pacemaker Discharge Diagnosis: Persistent atrial fibrillation Discharge Disposition: 01-Home or Self Care [...] Resolved Anticoagulation Resolved adequate with anticoagulant therapy, care home(Confirmed) Aortic valve Resolved disorder(Confirmed) Atrial Resolved fibrillation(Confirm [...] Daily, # 90 tabs, 1 Refill(s), Pharmacy: [facility], 1 tabs Oral Daily Start Date: 04/16/15 Status: Ordered digoxin 250 mcg (0.25 mg) oral tablet 250 mcg 1 tabs, Oral, Daily, # 90 tabs, 1 Refill(s), Pharmacy: [facility], 1 tabs Oral Daily Start Date: 04/16/15 Status: Ordered Diltiazem Hydrochloride ER 300 mg/24 hours oral capsule, extended release 300 mg 1 caps, Oral, Daily, # 90 caps, 3 Refill(s), Pharmacy: [facility], 1 caps Oral Daily Start Date: 05/14/15 Status: Ordered finasteride 5 mg oral tablet 5 mg 1 tabs, Oral, Daily, # 90 tabs, 1 Refill(s), Pharmacy: [facility], 1 tabs Oral Daily Start Date: 04/16/15 Status: Ordered Tylenol Caplet 325 mg oral tablet 1 tabs, Oral, Daily, as needed for pain, 0 Refill(s) Start Date: 06/03/14 Status: Ordered warfarin 5 mg oral tablet 5 mg 1 tabs, Oral, Daily, TAKE 5MG M/W/F AND TAKE 2.5MG TU/THURS/SAT/SUN., # 78 tabs, 1 Refill(s), Pharmacy: [facility], 1 tabs Oral Daily, Instr:TAKE [...] 2004 Prostate Biopsy- Negative 2000 Viral meningitis3 1999 [...] pacemaker Ordered: Office Visit Level 3 Est 90919 Pm Device Progr Eval Sngl 15310 Return to Clinic 2.Persistent atrial fibrillation Ordered: Office Visit Level 3 Est 67648 Pm Device Progr Eval Sngl 44459 Return to Clinic Orders: warfarin, 5 mg 1 tabs, Oral, Daily, TAKE 5MG // AND TAKE 2.5MG / /MON/SUN., # 78 tabs, 1 Refill(s), 1 tabs Oral Daily Referrals to Other Providers Referred by: Leander Zhao MD
--- OUTSIDE RECORDS SUMMARY | 2016-11-21 11:46 | XMS REPORT | Referral Summary ---
Author Author [facility] Organization [facility] Address Unknown Phone Unavailable Care Team Providers Care Residential Building Inspector Name Role Phone Gabriel Mace Primary Care Physician [phone] Encounter 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) Aortic valve Resolved disorder(Confirmed) Atrial Resolved fibrillation(Confirm [...] Daily, # 90 tabs, 1 Refill(s), Pharmacy: [facility], 1 tabs Oral Daily Start Date: 04/16/15 Status: Ordered digoxin 250 mcg (0.25 mg) oral tablet 250 mcg 1 tabs, Oral, Daily, # 90 tabs, 1 Refill(s), Pharmacy: [facility], 1 tabs Oral Daily Start Date: 04/16/15 Status: Ordered Diltiazem Hydrochloride ER 300 mg/24 hours oral capsule, extended release 300 mg 1 caps, Oral, Daily, # 90 caps, 3 Refill(s), Pharmacy: [facility], 1 caps Oral Daily Start Date: 05/14/15 Status: Ordered finasteride 5 mg oral tablet 5 mg 1 tabs, Oral, Daily, # 90 tabs, 1 Refill(s), Pharmacy: [facility], 1 tabs Oral Daily Start Date: 04/16/15 Status: Ordered Tylenol Caplet 325 mg oral tablet 1 tabs, Oral, Daily, as needed for pain, 0 Refill(s) Start Date: 06/03/14 Status: Ordered warfarin 5 mg oral tablet 5 mg 1 tabs, Oral, Daily, TAKE 5MG M/W/F AND TAKE 2.5MG TU/THURS/SAT/SUN., # 78 tabs, 1 Refill(s), Pharmacy: [facility], 1 tabs Oral Daily, Instr:TAKE [...] pacemaker Ordered: Office Visit Level 3 Est 79687 Pm Device Progr Eval Sngl [id number] Return to Clinic 2.Persistent atrial fibrillation Ordered: Office Visit Level 3 Est 57377 Pm Device Progr Eval Sngl [id number] Return to Clinic Orders: warfarin, 5 mg 1 tabs, Oral, Daily, TAKE 5MG // AND TAKE 2.5MG / /MON/SUN., # 78 tabs, 1 Refill(s), 1 tabs Oral Daily Referrals to Other Providers Referred by: Leander Zhao MD
--- OUTSIDE RECORDS SUMMARY | 2016-11-21 11:46 | XMS REPORT | Referral Summary ---
Author Author [facility] Organization [facility] Address Unknown Phone Unavailable Care Team Providers Care Band Sewer Name Role Phone Gabriel Mace Primary Care Physician [phone] Encounter Date(s): 06/16/15 - 06/16/15 [facility] [address] [place] [address] [place] [phone]- Discharge Diagnosis: Family history of prostate cancer Discharge Diagnosis: BPH with obstruction/lower urinary tract symptoms Discharge Diagnosis: Heart disease Discharge Diagnosis: Atrial fibrillation Discharge Disposition: -Home or Self Care Attending Physician: Derek Narvaez JR, MD Admitting Physician: Derek Narvaez JR, MD Vital Signs Most recent to 1 oldest [Reference Range]: Peripheral Pulse 64 bpm Rate [60-100 bpm] (06/16/15 8:56 AM) Blood Pressure 130/80 mmHg [90-140/60-90 mmHg] (06/16/15 8:56 AM) Problem List Condition Effective Dates Status Health Status Informant Actinic Resolved keratosis(Confirmed) Allergies(Confirmed) Resolved Anemia(Confirmed) Resolved Anticoagulation Resolved adequate with anticoagulant therapy, skilled nursing(Confirmed) Aortic valve Resolved disorder(Confirmed) Atrial Resolved fibrillation(Confirm [...] Daily, # 90 tabs, 1 Refill(s), Pharmacy: [facility], 1 tabs Oral Daily Start Date: 04/16/15 Status: Ordered digoxin 250 mcg (0.25 mg) oral tablet 250 mcg 1 tabs, Oral, Daily, # 90 tabs, 1 Refill(s), Pharmacy: [facility], 1 tabs Oral Daily Start Date: 04/16/15 Status: Ordered Diltiazem Hydrochloride ER 300 mg/24 hours oral capsule, extended release 300 mg 1 caps, Oral, Daily, # 90 caps, 3 Refill(s), Pharmacy: [facility], 1 caps Oral Daily Start Date: 05/14/15 Status: Ordered finasteride 5 mg oral tablet 5 mg 1 tabs, Oral, Daily, # 90 tabs, 1 Refill(s), Pharmacy: [facility], 1 tabs Oral Daily Start Date: 04/16/15 Status: Ordered Tylenol Caplet 325 mg oral tablet 1 tabs, Oral, Daily, as needed for pain, 0 Refill(s) Start Date: 06/03/14 Status: Ordered warfarin 5 mg oral tablet 5 mg 1 tabs, Oral, Daily, TAKE 5MG M/W/F AND TAKE 2.5MG TU/THURS/SAT/SUN., # 78 tabs, 1 Refill(s), Pharmacy: [facility], 1 tabs Oral Daily, Instr:TAKE 5MG M/W/F AND TAKE 2.5MG TU/THURS/SAT/SUN. Start Date: 04/16/15 Status: Ordered Results No data available for this section Immunizations Vaccine Date Refusal Reason influenza virus vaccine, inactivated 05/07/15 influenza virus vaccine, live 05/08/12 pneumococcal 23-polyvalent vaccine 01/22/07 Procedures Procedure Date Related Diagnosis Body Site Colonoscopy 2010 Colonoscopy; diverticulitis 2007 septoplasty and Endoscopic cauterization [...] Extracted from: Title: Ambulatory Patient Education Author: Derek Narvaez JR, MD Date : 06/16/15 Follow Up With: Where: When: Juan Mace[address]; [place] [address] Business (1) Within 3 to 5 days Comments: Follow Up With: Where: When: Derek Bhat[address]; [place] [address] [employer] (1) In 1 year 06/16/2016 Comments: Extracted from: Title: Office Visit Note Author: Derek Narvaez JR, MD Date: 06/16/15 Assessment/Plan 1.BPH with obstruction/lower urinary tract symptoms continue finasteride. Recheck in my office in one year PSA a week before next visit. 2.Atrial fibrillation continue warfarin 3.Heart disease continue digoxin 4.Family history of prostate cancer need to have a close follow-up on his PSA because of the family history of prostate cancer Ordered: Office Visit Level 3 Est 13041
--- OUTSIDE RECORDS SUMMARY | 2016-11-21 11:46 | XMS REPORT | Referral Summary ---
Author Author [facility] Organization [facility] Address Unknown Phone Unavailable Care Team Providers Care Custom Miller Name Role Phone Gabriel Mace Primary Care Physician [phone] Encounter [facility] [id number] Date(s): 03/03/15 - 03/03/15 [facility] [address] [place] [place] [id number] Discharge Diagnosis: Presence of permanent cardiac pacemaker [...] Resolved Anticoagulation Resolved adequate with anticoagulant therapy, prison psychiatrist(Confirmed) Aortic valve Resolved disorder(Confirmed) Atrial Resolved fibrillation(Confirm [...] Daily, # 90 tabs, 1 Refill(s), Pharmacy: [facility], 1 tabs Oral Daily Start Date: 04/16/15 Status: Ordered digoxin 250 mcg (0.25 mg) oral tablet 250 mcg 1 tabs, Oral, Daily, # 90 tabs, 1 Refill(s), Pharmacy: [facility], 1 tabs Oral Daily Start Date: 04/16/15 Status: Ordered Diltiazem Hydrochloride ER 300 mg/24 hours oral capsule, extended release 300 mg 1 caps, Oral, Daily, # 90 caps, 3 Refill(s), Pharmacy: [facility], 1 caps Oral Daily Start Date: 05/14/15 Status: Ordered finasteride 5 mg oral tablet 5 mg 1 tabs, Oral, Daily, # 90 tabs, 1 Refill(s), Pharmacy: [facility], 1 tabs Oral Daily Start Date: 04/16/15 Status: Ordered Tylenol Caplet 325 mg oral tablet 1 tabs, Oral, Daily, as needed for pain, 0 Refill(s) Start Date: 06/03/14 Status: Ordered warfarin 5 mg oral tablet 5 mg 1 tabs, Oral, Daily, TAKE 5MG M/W/F AND TAKE 2.5MG TU/THURS/SAT/SUN., # 78 tabs, 1 Refill(s), Pharmacy: [facility], 1 tabs Oral Daily, Instr:TAKE [...] pacemaker Ordered: Office Visit Level 3 Est 97598 Pm Device Progr Eval Sngl [id number] Return to Clinic 2.Persistent atrial fibrillation Ordered: Office Visit Level 3 Est 75228 Pm Device Progr Eval Sngl [id number] Return to Clinic Orders: warfarin, 5 mg 1 tabs, Oral, Daily, TAKE 5MG // AND TAKE 2.5MG / /MON/SUN., # 78 tabs, 1 Refill(s), 1 tabs Oral Daily Referrals to Other Providers Referred by: Leander Zhao MD
--- OUTSIDE RECORDS SUMMARY | 2016-11-21 11:46 | XMS REPORT | Referral Summary ---
Author Author [facility] Organization [facility] Address Unknown Phone Unavailable Care Team Providers Care Impact Hammer Operator Name Role Phone Nayely Dorsey Primary Care Physician [phone] Encounter Date(s): 07/29/16 - 07/29/16 [facility] [address] [place] [id number] Discharge Disposition: 01-Home or Self Care Attending Physician: Leander Zhao MD Referring Physician: Leander Zhao MD Vital Signs No data available for this section Problem List Condition Effective Dates Status Health Status Informant Actinic Resolved keratosis(Confirmed) Allergies(Confirmed) Resolved Anemia(Confirmed) Resolved Anticoagulation Resolved adequate with anticoagulant therapy, 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 container terminal(Confirmed) Aortic valve Resolved disorder(Confirmed) Atrial Resolved [...] Daily, # 90 tabs, 1 Refill(s), Pharmacy: [facility] # [id number], 1 tabs Oral Daily Start Date: 03/15/16 Status: Ordered digoxin 250 mcg (0.25 mg) oral tablet 250 mcg 1 tabs, Oral, Daily, # 90 tabs, 1 Refill(s), Pharmacy: [facility] #[id number], 1 tabs Oral Daily Start Date: 03/15/16 Status: Ordered Diltiazem Hydrochloride ER 300 mg/24 hours oral capsule, extended release 300 mg 1 caps, Oral, Daily, # 90 caps, 1 Refill(s), Pharmacy: [facility] # [id number], 1 caps Oral Daily Start Date: 03/15/16 Status: Ordered finasteride 5 mg oral tablet 5 mg 1 tabs, Oral, Daily, # 90 tabs, 1 Refill(s), Pharmacy: [facility] # [id number], 1 tabs Oral Daily Start Date: 03/15/16 Status: Ordered Tylenol Caplet 325 mg oral tablet 1 tabs, Oral, Daily, as needed for pain, 0 Refill(s) Start Date: 06/03/14 Status: Ordered warfarin 5 mg oral tablet 5 mg 1 tabs, Oral, Daily, TAKE 5MG M/W/F AND TAKE 2.5MG TU/THURS/SAT/SUN, or as directed based on INR., # 100 tabs, 1 Refill(s), Pharmacy: [facility] # [id number], 1 tabs Oral Daily,Instr:TAKE 5MG M/W/F AND [...]
--- NOTE | 2016-11-21 12:00 | NUR ---
EKG EKG TAKEN AND GIVEN TO DR ZAPIEN
--- NOTE | 2016-11-21 12:07 | ERPDOC ---
Departure Disposition Decision Date: November 21, 2016 Disposition Decision Time: 13:13 (BETTIE DOUGLAS APRN) Disposition: 02 TO [facility] Impression Impression (BETTIE DOUGLAS APRN) Impression: Primary Impression: Sepsis syndrome Additional Impression: Community acquired pneumonia Severity: Moderate (BETTIE DOUGLAS APRN) Condition: Improved Seen By: Mid-level only (BETTIE DOUGLAS APRN) Referrals: CONG WELCH MD (Family) Problems/Meds/Labs Reviewed?: Yes Medications reviewed and manag: Yes (BETTIE DOUGLAS APRN) Follow up care ordered?: Yes Mental Status: Alert, Oriented (BETTIE DOUGLAS APRN) Sepsis SIRS Criteria: Temp<=96.8 or >=100.4, WBC >=12,000 or <=4,000 (BETTIE DOUGLAS APRN) HPI - Dyspnea General Chief Complaint: Dyspnea/Respdistress Stated Complaint: COUGH/LOW 02 Time Seen by Provider: 12:07 Source: patient, family (BETTIE DOUGLAS APRN) Time Seen by Provider: 12:01 (NOVEMBER,AN M DO) HPI - Dyspnea Initial Comments 76 YO M presents to ED with SOA, productive cough and fever. Patient says that he developed a cough 5 days ago. Unsure when cough became productive. White mucus streaked with blood. Patient says he was out of town this weekend and cough became worse. Follow up with PCP this morning and was sent directly to ED with report of "low oxygen". Patient took regular strength Tylenol at 0530 today. Says he has had a fever for approx. 3 days. Patient report developing left anterior CP approx. 15 minutes ago which is reproducible to palpation. Patient SpO2 on 2L/NC of O2 at 91%. Pain/Severity Scale: Now: 3/10 Associated Symptoms: chest pain (chest wall), cough, fever/chills, shortness of breath, DENIES: diaphoresis, headaches, nausea/vomiting, weakness (BETTIE DOUGLAS APRN) Allergies: Coded Allergies: Iodine (Verified Allergy, Unknown, 05/10/09) Past History Past Medical History Metabolic: hypertension Cardiac: A-fib, CHF Respiratory: DENIES: COPD, asthma GI: GERD, DENIES: ulcers Male: BPH, DENIES: renal insufficiency Neurological: DENIES: seizures Musculoskeletal: DENIES: rheumatoid arthritis Psychological: DENIES: depression (BETTIE DOUGLAS TRANSFER COORDINATOR) Surgical History General: appendix, colonoscopy, gallbladder Cardiac: pacemaker (BETTIE DOUGLAS APRN) Family History Family PMH: FOUND: other (noncontributory) (BETTIE DOUGLAS APRN) Vaccines Hx Influenza Vaccination: Yes () Hx Pneumococcal Vaccination: No (BETTIE DOUGLAS APRN) Social History Does patient use chewing tobac: No Marital Status: (BETTIE DOUGLAS APRN) Review of Systems Constitutional Constitutional: fever, DENIES: chills, dizziness, weakness (BETTIE DOUGLAS TRANSFER COORDINATOR) Eyes General: DENIES: erythema, exudate Lids/Accessories: DENIES: erythema, swelling (BETTIE DOUGLAS APRN) ENMT Ears: DENIES: pain Sinuses: DENIES: congestion, rhinorrhea Mouth/Throat: DENIES: sore throat (BETTIE DOUGLAS TRANSFER COORDINATOR) Cardiovascular Cardiac: DENIES: chest pain, murmur Rhythm/Rate: DENIES: palpitations (BETTIE DOUGLAS APRN) Pulmonary Respiratory: cough, dyspnea, see HPI, sputum (BETTIE DOUGLAS TRANSFER COORDINATOR) GI Upper Abdomen: DENIES: nausea, pain, vomiting Lower Abdomen: DENIES: diarrhea, pain (BETTIE DOUGLAS TRANSFER COORDINATOR) General: DENIES: dysuria, pain (BETTIE DOUGLAS TRANSFER COORDINATOR) Musculoskeletal General: DENIES: joint pain, pain, tenderness (BETTIE DOUGLAS TRANSFER COORDINATOR) Integumentary Skin: DENIES: color change, itching, rash (BETTIE DOUGLAS TRANSFER COORDINATOR) Neurological General: DENIES: ataxia, change in strength, numbness, paralysis/paresis, weakness (BETTIE DOUGLAS TRANSFER COORDINATOR) Psychiatric Psychiatric: DENIES: anxiety, depression, nervousness (BETTIE DOUGLAS TRANSFER COORDINATOR) Physical Exam General General Nourishment: well nourished, well developed, adult General Body Habitus: well groomed (BETTIE DOUGLAS APRN) Vitals and Pain First Documented Vital Signs Date Time Temp Pulse Resp B/P Pulse Ox O2 Delivery O2 Flow Rate FiO2 11/21/16 11:45 102.7 89 20 124/59 91 Room Air 11/21/16 12:30 2.00 (NOVEMBER,AN M DO) Vitals and Pain Weight: Kilograms: Height (feet): 5 Height (inches): 9.50 Triage Pain Scale: (BETTIE DOUGLAS APRN) Eyes (brief) Eyes Brief: found: EOMI (BETTIE DOUGLAS APRN) ENMT (brief) ENMT Brief: FOUND: mucosa moist, NOT FOUND: nasal exudate (STEWART DOUGLASS Ronaldo TRANSFER COORDINATOR) Neck (brief) Neck: FOUND: trachea midline, NOT FOUND: adenopathy, tenderness, thyromegaly ( BETTIE DOUGLAS TRANSFER COORDINATOR) Respiratory Inspection: FOUND: tachypnea (24) Palpation: FOUND: tenderness (TTP ICS 4-6, lateral of left MCL) Auscultation: FOUND: decreased (throughout bilaterally) (BETTIE DOUGLAS TRANSFER COORDINATOR) Cardiovascular (brief) Cardiac: FOUND: regular rate, regular rhythm (BETTIE DOUGLAS TRANSFER COORDINATOR) Abdomen (brief) Abdominal Brief: FOUND: bowel normo active x4, soft (BETTIE DOUGLAS TRANSFER COORDINATOR) Musculoskeletal (brief) Musculoskeletal Brief: NOT FOUND: deformity, loss of motion (BETTIE DOUGLAS TRANSFER COORDINATOR) Integumentary General: FOUND: dry, hot Color: FOUND: pink (BETTIE DOUGLAS TRANSFER COORDINATOR) Neurologic (brief) Neurological Brief: FOUND: motor-no gross deficits, sensory-no gross deficits ( BETTIE DOUGLAS TRANSFER COORDINATOR) Psychiatric (brief) Psychiatric Brief: FOUND: alert, normal affect, oriented (STEWART DOUGLASS Ronaldo TRANSFER COORDINATOR ) Differential Diagnoses Considering: Acute Bronchitis, Acute CO, Pneumonia, Viral Syndrome, Other (UTI) (BETTIE DOUGLAS TRANSFER COORDINATOR) Progress Results/Orders Orders Procedure Category Date Status Time Iv Lock (Ed Only) EDM 11/21/16 Transmitted 12:08 Oxygen Administration EDM 11/21/16 Transmitted 12:08 Nothing By Mouth (Ed EDM 11/21/16 Transmitted Only) 12:08 Cbc W/Auto LAB 11/21/16 Complete Diff-Reflex Manual 12:08 Cmp - Comprehensive LAB 11/21/16 Complete Metabolic 12:08 Blood Culture QAMAR 11/21/16 In Process 12:08 Chest, Pa & Lateral RAD 11/21/16 Resulted 12:08 EKG EKG 11/21/16 Taken 12:08 Troponin I W LAB 11/21/16 Complete Hemolysis Index 12:08 Lactate - Lactic Acid LAB 11/21/16 Complete Lactate - Lactic Acid LAB 11/21/16 Complete 16:38 Acetaminophen PHA 11/21/16 Complete (Tylenol Regular 12:15 Normal Saline (Normal PHA 11/21/16 Complete Saline Iv) 12:15 Probnp LAB 11/21/16 Complete Albuterol Sulfate PHA 11/21/16 Complete (Proventil 2.5 Mg/3 Ml 12:30 UA, LAB 11/21/16 Complete Dip&Micro(Complete) & 12:20 INR LAB 11/21/16 Complete Levofloxacin 750 Mg PHA 11/21/16 Complete Ivpb (Levaquin 750 M 13:15 Digoxin LAB 11/21/16 Complete Sputum Culture W/Gram QAMAR 11/21/16 In Process Stain 13:57 Sputum Culture W/Gram QAMAR 11/21/16 In Process Stain 14:05 Place In Facility: ED ADM 11/21/16 Transmitted Telemetry MIRIAN 11/21/16 In Process 14:07 Regular Diet DIET 11/21/16 Transmitted Dinner (NOVEMBER,AN M DO) Lab Results Laboratory Tests Test 11/21/16 12:19 11/21/16 12:20 White Blood Count 16.9T/MM3 Red Blood Count 4.66M/MM3 Hemoglobin 13.6GM/DL Hematocrit 39.7% Mean Corpuscular Volume 85.2UM3 Mean Corpuscular Hemoglobin 29.2UUG Mean Corpuscular Hemoglobin Concent 34.3GM/DL RDW Standard Deviation 42.6FL Platelet Count 243T/MM3 Mean Platelet Volume 9.9UM3 Immature Granulocyte % (Auto) % Neutrophils (%) (Auto) % Lymphocytes (%) (Auto) % Monocytes (%) (Auto) % Eosinophils (%) (Auto) % Basophils (%) (Auto) % Absolute Immature Granulocyte (auto T/MM3 Absolute Neutrophils (auto) T/MM3 Absolute Lymphocytes (auto) T/MM3 Absolute Monocytes (auto) T/MM3 Absolute Eosinophils (auto) T/MM3 Absolute Basophils (auto) T/MM3 Neutrophils % (Manual) 91.0% Band Neutrophils % 5.0% Lymphocytes % (Manual) 2.0% Monocytes % (Manual) 2.0% Absolute Neutrophils (Manual) 15.4T/MM3 Band Neutrophils # 0.8T/MM3 Lymphocytes # (Manual) 0.3T/MM3 Monocytes # (Manual) 0.3T/MM3 Red Cell Morphology Comment Normal Prothromb Time International Ratio 3.87 Turbidity < 20 Sodium Level 139MEQ/L Potassium Level 4.1MEQ/L Chloride Level 98MEQ/L Carbon Dioxide Level 27MEQ/L Anion Gap 14MEQ/L Blood Urea Nitrogen 34.0MG/DL Creatinine 1.3MG/DL Glomerular Filtration Rate Calc 54 BUN/Creatinine Ratio 26RATIO Glucose Level 144MG/DL Calculated Osmolality 279MOSM/KG Calcium Level 8.8MG/DL Total Bilirubin 2.70MG/DL Icterus Index < 2 Aspartate Amino Transf (AST/SGOT) 50U/L Alanine Aminotransferase (ALT/SGPT) 92U/L Alkaline Phosphatase 205U/L Troponin I 0.015ng/ml BE-Lli-L-Type Natriuretic Peptide 4990PG/ML Total Protein 6.8G/DL Albumin 3.4G/DL Globulin 3.4G/DL Albumin/Globulin Ratio 1.0RATIO Plasma Lactate 1.9MMOL/L Chemistry Specimen Hemolysis < 15 Digoxin Level 1.2NG/ML Urine Collection Type Voided-not cc-midstr Urine Color [place] Urine Turbidity Clear Urine pH 5.5 Urine Specific Bath 1.015 Urine Protein Inconcl due to color Urine Glucose (UA) Negative Urine Ketones Negative Urine Blood Inconcl due to color Urine Nitrite Negative Urine Bilirubin Inconcl due to color Urine Urobilinogen >=8.0EU/DL Urine Leukocyte Esterase Negative Urine RBC 0-1/HPF Urine WBC 1-3/HPF Urine Squamous Epithelial Cells 10-20 Urine Bacteria 3+ Urine Culture Indicated Cult not indicated (NOVEMBER,AN M DO) Medications Current ED Medications Acetaminophen 650 mg 650 mg O ONCE PO Last administered on 11/21/16 12:32; Start 11/21/16 at 12:15; Stop 11/21/16 at 12:17; Status DC Sodium Chloride (Normal Saline IV) 1,000 ml @ 0 mls/hr Q0M ONCE IV Last administered on 11/21/16 12:31; Start 11/21/16 at 12:15; Stop 11/21/16 at 12:17; Status DC Albuterol Sulfate 2.5 mg 2.5 mg O ONCE AEROSOL Last administered on 11/21/16 12:36; Start 11/21/16 at 12:30; Stop 11/21/16 at 12:31; Status DC Levofloxacin/ Dextrose/Water (LEVAQUIN 750 mg IVPB/D5W) 150 ml @ 100 mls/hr O ONCE IV Last administered on 11/21/16t 13:27; Start 11/21/16 at 13:15; Stop at 14:44; Status DC (NOVEMBER,[facility] ) Progress Progress WBC 16.9 with 91% neut, 5% bands (concern for sepsis recognized at 1313) BUN 34.0 Creatinine 1.3 AST 92 Bilirubin 2.70 Pro BNP 4990 Troponin 0.015 INR 3.87 patient is anticoagulated with warfarin UA not positive for nitrates or LE, inconclusive for blood due to color, 1-3 WBC , 4+ bacteria Chest x-ray consistent with LLL pneumonia I discussed treatment labs and CXR with patient and need for admission to ED with patient. (BETTIE DOUGLAS APRN) EKG EKG : Rate: 60-100 Rhythm: ventricular (paced) ST/T: non-specific changes Interpreted by: signing physician (Dr. Bonilla) (BETTIE DOUGLAS APRN) Consult/PCP Consult/PCP : Physician Contacted: Dr. Carson Time Called: 13:13 Type of discussion: Admit Discussion/PCP Discussion Details I discussed patient's HPI, past medical history, vital signs, labs, chest x-ray , exam findings and treatment in the ER with Dr. Carson hospitalist. Dr. Carson will admit inpatient, verbal orders given at this time. (BETTIE DOUGLAS APRN) Xray Xray : Xray: CXR PA/Lat (LLL consolidation) Interpretation: Reviewed Written Report (BETTIE DOUGLAS APRN) BETTIE DOUGLAS APRN November 21, 2016 12:07 NOVEMBER,[facility] November 22, 2016 07:14
[2016-11-21] MEDS ORDERED: ACETAMINOPHEN 325 MG TABLET PO ONE (12:15)
[2016-11-21] MEDS ORDERED: NORMAL SALINE 1,000 ML IV ONE (12:15)
--- OUTSIDE RECORDS SUMMARY | 2016-11-21 12:16 | XMS REPORT | Continuity of Care Document ---
Author Author [facility] Organization [facility] Address Unknown Phone Unavailable Allergies Active Description [...] Status Pt. Type Provider Facility Loc./Unit Complaint [id number] 08/06/2012 06:00:00 2012 12:05:00 DIS Outpatient Leander Zhao MD Via [facility] on [address]
[2016-11-21 12:29] LABS: HCT - HEMATOCRIT 39.7 % (41-53); HGB - HEMOGLOBIN 13.6 GM/DL (13.5-17.5); MEAN CORPUSCULAR HGB 29.2 UUG (26-34); MEAN CORPUSCULAR HGB CONC(MCHC 34.3 GM/DL (31-37); MEAN CORPUSCULAR VOLUME 85.2 UM3 (80-100); MEAN PLATELET VOLUME 9.9 UM3 (9.4-12.4); RED BLOOD COUNT 4.66 M/MM3 (4.50-5.90); WBC - WHITE BLOOD COUNT 16.9 T/MM3 (4.5-11.0)
[2016-11-21] MEDS ORDERED: ALBUTEROL INH.SOLN. 2.5mg/3ml (0.083%) Neb. AEROSOL ONE (12:30)
[2016-11-21 12:37] LABS: LACTATE - LACTIC ACID 1.9 MMOL/L (0.6-2.2)
[2016-11-21 12:38] LABS: ALBUMIN 3.4 G/DL (3.5-5.0); ALKALINE PHOSPHATASE 205 U/L (38-126); ALT (SGPT) 92 U/L (21-72); ANION GAP 14 MEQ/L (5-15); AST (SGOT) 50 U/L (17-59); BUN/CREATININE RATIO 26 RATIO (6-26); CALCIUM 8.8 MG/DL (8.4-10.2); CHLORIDE 98 MEQ/L (98-107); CO2 - CARBON DIOXIDE 27 MEQ/L (22-30); CREATININE 1.3 MG/DL (0.8-1.5); GLOMERULAR FILTRATION RATE 54; GLUCOSE 144 MG/DL (75-110); POTASSIUM 4.1 MEQ/L (3.6-5); SODIUM 139 MEQ/L (134-144); TOTAL PROTEIN 6.8 G/DL (6.3-8.2)
[2016-11-21 13:03] LABS: COLOR,URINE ORANGE (YELLOW); LEUKOCYTE ESTERASE ,URINE NEGATIVE (NEGATIVE); NITRITE,URINE NEGATIVE (NEGATIVE); UROBILINOGEN,URINE >=8.0 EU/DL (NORMAL)
[2016-11-21 13:06] LABS: RBC,URINE 0-1 /HPF (0-3)
[2016-11-21 13:07] LABS: BACTERIA,URINE 3+ (NEGATIVE)
[2016-11-21 13:10] LABS: BLOOD, URINE INCONCL DUE TO COLOR (NEGATIVE)
--- NOTE | 2016-11-21 13:10 | DI ---
Indication: ITS.REASON: cough with fever Procedure: CHEST, PA LATERAL: Encounter: Initial Comparison: None Technique: PA and lateral radiographs of the chest were obtained. Findings: Life support devices: Left pectoral single chamber pacer device in place. Lungs and airways: Normal lung volumes. Heterogeneous left lower lobe airspace consolidation. Normal pulmonary vasculature. Pleura: No pleural effusion or pneumothorax. Heart and mediastinum: Aortic atherosclerosis. The cardiomediastinal silhouette is otherwise within normal limits. Osseous structures and soft tissues: No acute osseous abnormality is seen. Impression: Heterogeneous left lower lobe airspace consolidation suggestive of pneumonia given history of cough with fever. Follow-up radiographs in 6-8 weeks after completion of appropriate medical/antibiotic therapy recommended to ensure resolution. .
[2016-11-21] MEDS ORDERED: WARF2.5T73 PO (13:11)
[2016-11-21] MEDS ORDERED: WARF5TAB6 PO (13:11)
[2016-11-21] MEDS ORDERED: LEVOFLOXACIN 750 mg IVPB 750 MG in D5W 150 ML IV ONE (13:15)
[2016-11-21 13:20] LABS: BAND NEUTROPHILS # 0.8 T/MM3; LYMPHOCYTES # (MANUAL) 0.3 T/MM3 (1-4.8); MONOCYTES # (MANUAL) 0.3 T/MM3 (0-0.8); NEUTROPHILS #(MANUAL)-ABSOLUTE 15.4 T/MM3 (1.8-7.7); TOTAL CELLS COUNTED 100 %
[2016-11-21 13:23] LABS: INR 3.87 (0.76-1.04); PROTHROMBIN TIME 42.2 SEC (9.31-12.49)
--- OUTSIDE RECORDS SUMMARY | 2016-11-21 14:35 | XMS REPORT | Continuity of Care Document ---
Author Author [facility] Organization [facility] Address Unknown Phone Unavailable Allergies [...] Status Pt. Type Provider Facility Loc./Unit Complaint [id number] 08/06/2012 06:00:00 2012 12:05:00 DIS Outpatient Leander Zhao MD Via [facility] on [address]
[2016-11-21] MEDS ORDERED: ALBUTEROL/IPRATROPIUM INHAL. 2.5mg-0.5mg/3ml Neb. AEROSOL PRN (14:45)
[2016-11-21] MEDS ORDERED: NITROGLYCERIN 0.4 MG SUBLINGUAL TABLET SL PRN (14:45)
[2016-11-21] MEDS ORDERED: PRN ORDERS MC (14:45)
[2016-11-21] MEDS ORDERED: BISACODYL 10 MG SUPPOSITORY RECTALLY PRN (14:45)
[2016-11-21] MEDS ORDERED: PROMETHAZINE/CODEINE ORAL SYRUP PO PRN (14:45)
[2016-11-21] MEDS ORDERED: MORPHINE SULFATE 2 MG SYRINGE IV PRN (14:45)
[2016-11-21] MEDS ORDERED: ONDANSETRON 4mg/2ml INJECTION IV PRN (14:45)
[2016-11-21] MEDS ORDERED: MILK OF MAGNESIA 30 ML SUSP PO PRN (14:45)
[2016-11-21] MEDS ORDERED: MAG-AL + SIM LIQUID 30 ML UDC PO PRN (14:45)
[2016-11-21] MEDS ORDERED: LORAZEPAM 2 MG/ML INJECTION IV PRN (14:45)
--- NOTE | 2016-11-21 14:53 | NUR ---
ARRIVAL pt arrived to medical unit at 1453, from ER, via cart. vitals and weight were taken and entered. pt was assessed and made comfortable. pt on O2-2L NC. is present.
--- NOTE | 2016-11-21 14:53 | NUR ---
ADMIT TO MEDICAL 143 [facility]IA [facility] AT THIS TIME.
[2016-11-21 14:58] VITALS: Ht 177.8 cm; Wt 98.6 kg
[2016-11-21 15:12] VITALS: BP 108/62; PULSE 86; RESP 18; TEMP 98.6; O2SAT 93
--- NOTE | 2016-11-21 16:13 | DI ---
Indication: ITS.REASON: Elevated LFT and Biliruben PROCEDURE: US GALLBLADDER: Encounter: Initial Comparison: None Technique: Grayscale and color Doppler sonographic imaging of the right upper quadrant of the abdomen was performed. Findings: Hepatic parenchyma is homogeneous without evidence for focal mass. The gallbladder is normal. There is no wall thickening, pericholecystic fluid, sonographic Caballero's sign or cholelithiasis. Both the intra and extrahepatic biliary system are of normal caliber with the common duct measuring 1.9 mm in dimension. Visualized portions of the head and body of the pancreas are unremarkable. The right kidney is present without collecting system dilatation. The right kidney measures 12 cm in length. 2 cm cyst noted. Impression: No cholelithiasis, biliary ductal dilatation, or other sonographic evidence of acute cholecystitis. .
[2016-11-21] MEDS: ALBUTEROL/IPRATROPIUM INHAL. 2.5mg-0.5mg/3ml Neb. AEROSOL SCH ×2 (16:25→19:58)
[2016-11-21] MEDS: SALINE NASAL SPRAY 45ml EA NOSTRIL SCH ×2 (17:00→20:37)
[2016-11-21] MEDS: NORMAL SALINE 1,000 ML IV SCH (17:04)
--- NOTE | 2016-11-21 17:12 | HPF ---
CHIEF COMPLAINT Shortness of air and cough. HISTORY OF PRESENT ILLNESS Mr. Rivera is a 76-year-old gentleman who is referred to [facility] Emergency Room from his primary care provider's office secondary to shortness of air, cough and hypoxia. The patient reports he has been having cough for the past week and a half. During this time he has been coughing fairly thick clear sputum. Cough has been persistent and not improving. He did have a root canal performed on . Later that day he and his went up to [place] for a wedding. He notes that while he was up in [place] he started feeling much more rough. He was more weak and unstable - it was very difficult for him to get up and walk and be ambulatory. His legs felt weak and unsteady and as he would walk and move he felt more short of air. Cough started to increase, with more chest congestion. His chest wall became quite sore from all the coughing. Also, he had very decreased appetite. He was not interested in eating. He has had an episode of nausea with emesis times at least three. He has not had diarrhea - did not have bowel movement today. He does note sinus congestion but essentially stable - he has chronic sinus congestion and fullness year-round. He started having temperature elevation. He notes more chills and sweats. He has not noticed palpitations or cardiac irregularity. He has been passing bloody nasal mucus. He does note decreased urine output and urine has been dark with some blood in it. He has not seen blood in stool. In clinic he was evaluated. He was found to be hypoxic and sent to emergency room for evaluation. It is uncertain just what his room-air oxygen level was as he was maintaining 91% on 2 liters. White count is elevated at 16.9 with 91% neutrophils and 1% bands. Lactate is 1.9. INR is elevated at 3.87. Chest x-ray does show evidence of infiltrate in the left lower lobe. In light of his sepsis secondary to pneumonia, Dr. Carson was notified and he was subsequently placed in inpatient admission status for further evaluation and treatment. Anticipated length of stay is thought to be greater than two midnights PAST MEDICAL HISTORY Congestive heart failure - diastolic. LEX 09/19/2016 with EF 60%-65%. Chronic atrial fibrillation. Anticoagulation with Coumadin secondary to atrial fibrillation. Hypertension. Valvular heart disease - trace aortic regurgitation, mild mitral regurgitation, mild tricuspid regurgitation on last echo. Sick sinus syndrome with history of pacemaker placement. Hyperlipidemia. Stage III chronic kidney disease. Chronic allergies. GERD. Gouty arthritis. BPH. Diverticulosis. History of colonic polyps. History of kidney stones. History of polio. Actinic keratosis. History of skin cancer. History of cardiac arrest. History of appendectomy. History of hernia repair. History of ganglion removed from right wrist. History of prostate surgery. History of lithotripsy. . ALLERGIES Iodine. MEDICATIONS Allopurinol 110 mg daily. Digoxin 0.25 mg daily. Diltiazem 300 mg daily. Proscar 5 mg daily. Warfarin 5 mg Monday, Monday, , Monday, with 2.5 mg Monday, Monday, Monday. Claritin 10 mg daily p.r.n. allergies (uses infrequently). SOCIAL HISTORY The patient is to his of 54 years as of this february and they reside independently in [place], [place]. He is a nonsmoker and nondrinker. 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 He sees Dr. Dorsey for primary care and Dr. Zhao for cardiac care. FAMILY HISTORY Father had hypertension, diabetes and bladder cancer. Mother had hypertension, diabetes and lung cancer. Brother did have heart disease. Sister has rheumatoid arthritis. REVIEW OF SYSTEMS As above. GENERAL: Notes fevers, chills, malaise, weakness, decreased appetite. HEENT: Vision and hearing are stable. Notes chronic sinus congestion, with recent bloody discharge. Denies headache. Denies stomatitis. RESPIRATORY: As above. CARDIOVASCULAR: As above. Denies increased lower extremity edema. GI: Notes decreased appetite with episodes of emesis. Denies abdominal pain. Denies diarrhea. : Denies urinary pain or discomfort, reports blood in urine. NEUROLOGIC: Notes globalized weakness but denies localizing symptoms. PSYCHIATRIC: Mood is stable. SKIN: Denies rash or lesions. Remainder of 10-point review of systems reviewed and negative. PHYSICAL EXAMINATION VITAL SIGNS: Height 70 inches, weight 96.7 kg. BMI 30.6. Temperature 102.7, pulse 89/regular, respiratory rate 20/unlabored. Blood pressure 124/59. 91% saturation on 2 L/nasal cannula. GENERAL: Well-developed, well-nourished gentleman who is awake and alert. He looks tired and ill but not toxic. He communicates well. HEENT: NC/AT. HEATHER. EOMI. Mucous membranes slightly dry. No scleral icterus is noted. NECK: Supple and midline. No nuchal rigidity is present. LUNGS: Decreased breath sounds bilaterally. I am not appreciating crackles or wheeze. Respiratory excursion is shallow. He breathes comfortably on oxygen without distress. CARDIOVASCULAR: Regular rate and rhythm. ABDOMEN: Soft, obese, nontender, nondistended. Bowel sounds are present. No rebound tenderness or guarding is noted. EXTREMITIES: No clubbing, cyanosis or edema. NEUROLOGIC: Patient is awake and alert. Cranial nerves II-XII appear grossly intact. I am not appreciating focal deficits. PSYCHIATRIC: Patient is awake, alert and oriented. Thoughts are linear. He converses well. SKIN: Warm and moist. LABORATORY White blood count is 16.9 with 91% neutrophils and 5% bands. Hemoglobin is 13.6 with hematocrit 39.7, MCV 85.2 and platelets 243,000. Serum sodium is 139, potassium 4.1, chloride 98, CO2 27, BUN 34 with creatinine 1.3, GFR 54 and blood glucose 144. Total bilirubin is elevated at 2.70 with AST normal at 50 but ALT elevated at 92. ProBNP is 4990. Troponin I is 0.15. Plasma lactate is 1.9. INR is 3.87. Digoxin therapeutic at 1.2. UA reveals elevated urobilinogen, with protein, blood not able to be identified due to color. ASSESSMENT 1. Sepsis syndrome - manifestations include leukocytosis with shift, temperature elevation and hyperglycemia. Source is lung. 2. Community-acquired pneumonia. 3. Hypoxia secondary to pneumonia. 4. Leukocytosis. 5. Elevated liver enzymes. 6. Elevated bilirubin. 7. Chronic diastolic/valvular heart failure. 8. Chronic atrial fibrillation. 9. Anticoagulation with warfarin - INR elevated - suspect elevation secondary to decreased oral intake. 10. Hypertension. 11. Valvular heart disease. 12. Hyperlipidemia. 13. Stage III chronic kidney disease. 14. GERD. 15. BPH. 16. Gouty arthritis. 17. Obesity with BMI 30.6. PLAN 1. Will place patient in inpatient admission status at [facility] under the care of Dr. Carson. Anticipate greater than two midnights of care needed. 2. Start Levaquin 750 mg IV daily for empiric antimicrobial coverage of pulmonary pathogens. 3. Will start normal saline at 75 mL/hr to help with hydration due to his sepsis and pneumonia. Will watch for volume overload. 4. Start Mucinex DM b.i.d. for cough and mucolytic effect. He may have Ricola and Phenergan with codeine as needed for cough. 5. Initiate Acapella to help loosen secretions. 6. Continue with supplemental oxygen, weaning as able. 7. Monitor INR daily secondary to elevated INR and Coumadin use. Will hold Coumadin due to elevation of INR and also potential for interaction between Coumadin and Levaquin. 8. Home medications will be continued other than Coumadin. 9. Start nebulized treatments of DuoNeb q.i.d. and q.4h. p.r.n. shortness of air. 10. Obtain gallbladder ultrasound secondary to elevated liver enzymes and bilirubin to exclude obstruction. 11. Will hold on echocardiogram as one was performed August of this year. 12. Monitor INR daily due to Coumadin use. 13. Recheck CMP in a.m. secondary to elevated liver enzymes as well as to monitor his electrolytes and renal status. 14. Repeat CBC in a.m. secondary to leukocytosis. 15. Discussed code status with patient. He requests NO RESUSCITATION. Order is written. 16. Patient's care will be transitioned to Dr. Dorsey at time of discharge from [facility]. WILL
[2016-11-21 19:46] VITALS: RESP 18
[2016-11-21 19:56] VITALS: PULSE 82; RESP 18; O2SAT 92
[2016-11-21 20:00] VITALS: BP 112/65; PULSE 82; RESP 18; TEMP 98.3; O2SAT 90
--- NOTE | 2016-11-21 20:00 | NUR ---
resp coarse breath sounds L base, diminished air flow throughout. Pt. denies feeling dyspneic. Frequent cough, sputum is alcantara, blood tinged.
[2016-11-21] MEDS: FINASTERIDE 5 MG TABLET PO SCH (20:34)
[2016-11-21] MEDS: GUAIFENESIN DM 600mg/30mg TABLET PO SCH (20:34)
[2016-11-21] MEDS: MENTHOL COUGH DROPS (RICOLA) MM PRN (22:00)
[2016-11-21] MEDS: ACETAMINOPHEN 325 MG TABLET PO PRN (23:59)
[2016-11-22] VITALS (9 sets, daily range): BP systolic 105–131; BP diastolic 56–69; PULSE 79–90; RESP 16–18; TEMP 96.8–98.8; O2SAT 90–94
--- NOTE | 2016-11-22 | NUR ---
comfort denies pain, states feels "warm". Temp. 98.8 ax., will give tylenol as requested
--- NOTE | 2016-11-22 05:12 | NUR ---
rest sleeps off and on, voids several times during noc, sm. amts. Frequent cough, continues alcantara sputum, blood tinged. Denies dizziness as up in room. denies dyspnea at rest
[2016-11-22 05:18] LABS: HCT - HEMATOCRIT 37.6 % (41-53); HGB - HEMOGLOBIN 12.3 GM/DL (13.5-17.5); MEAN CORPUSCULAR HGB 28.4 UUG (26-34); MEAN CORPUSCULAR HGB CONC(MCHC 32.7 GM/DL (31-37); MEAN CORPUSCULAR VOLUME 86.8 UM3 (80-100); MEAN PLATELET VOLUME 9.9 UM3 (9.4-12.4); RED BLOOD COUNT 4.33 M/MM3 (4.50-5.90); WBC - WHITE BLOOD COUNT 19.7 T/MM3 (4.5-11.0)
[2016-11-22 05:26] LABS: INR 4.28 (0.76-1.04); PROTHROMBIN TIME 46.7 SEC (9.31-12.49)
[2016-11-22 05:32] LABS: ALBUMIN/GLOBULIN RATIO 0.9 RATIO (1.1-2.2); ALKALINE PHOSPHATASE 200 U/L (38-126); ALT (SGPT) 72 U/L (21-72); ANION GAP 12 MEQ/L (5-15); AST (SGOT) 28 U/L (17-59); BUN/CREATININE RATIO 24 RATIO (6-26); CALCIUM 8.4 MG/DL (8.4-10.2); CHLORIDE 101 MEQ/L (98-107); CO2 - CARBON DIOXIDE 26 MEQ/L (22-30); CREATININE 1.1 MG/DL (0.8-1.5); GLOMERULAR FILTRATION RATE 65; GLUCOSE 120 MG/DL (75-110); MAGNESIUM 2.4 MG/DL (1.6-2.3); SODIUM 139 MEQ/L (134-144); TOTAL PROTEIN 6.3 G/DL (6.3-8.2)
[2016-11-22] MEDS: NORMAL SALINE 1,000 ML IV SCH ×2 (06:29→22:07)
[2016-11-22 06:36] LABS: BAND NEUTROPHILS # 0.4 T/MM3; LYMPHOCYTES # (MANUAL) 1.4 T/MM3 (1-4.8); MONOCYTES # (MANUAL) 1.6 T/MM3 (0-0.8); NEUTROPHILS #(MANUAL)-ABSOLUTE 16.4 T/MM3 (1.8-7.7); TOTAL CELLS COUNTED 100 %
[2016-11-22] MEDS: ALBUTEROL/IPRATROPIUM INHAL. 2.5mg-0.5mg/3ml Neb. AEROSOL SCH ×4 (06:44→19:47)
[2016-11-22] MEDS: GUAIFENESIN DM 600mg/30mg TABLET PO SCH ×2 (08:25→20:45)
[2016-11-22] MEDS: DILTIAZEM CD 300 MG PO SCH (08:25)
[2016-11-22] MEDS: DIGOXIN 250 MCG TABLET PO SCH (08:25)
[2016-11-22] MEDS: ALLOPURINOL 100 MG TABLET PO SCH (08:25)
[2016-11-22] MEDS: LORATADINE 10 MG TABLET PO SCH (08:25)
[2016-11-22] MEDS: SALINE NASAL SPRAY 45ml EA NOSTRIL SCH ×4 (08:26→22:07)
[2016-11-22] MEDS ORDERED: LEVOFLOXACIN 750 mg IVPB 750 MG in D5W 150 ML IV SCH (09:00)
--- NOTE | 2016-11-22 11:30 | PNPDOC ---
Subjective Date DATE: 11/22/16 TIME: 10:59 Subjective F/U: Sepsis, Strep pneumonia septicemia, Pneumonia Had F/C/Sweats last night-soaked the bed with sweat. Still feeling weak and washed out, but not as pronounces as previously. Still with cough/congestion. Sputum bloody. No pain with breathing or chest pain. Not having nausea or ab pain. Ate well for breakfast. Had good bowel movement this am. Urinating well. Objective Vital Signs Vital signs Vital Signs Date Time Temp Pulse Resp B/P Pulse Ox O2 Delivery O2 Flow Rate FiO2 11/22/16 08:25 82 11/22/16 07:48 97.9 18 114/69 92 Nasal Cannula 2.00 Height (Feet): 5 Height (Inches): 10.00 Weight (Kilograms): 96.300 General General Appearance: Alert, Obese, Orientated x 3, Well Nourished, Well Developed, Cooperative, Mild Distress, Other (Looks tired and weak), Looks Stated Age Eyes (Brief) Eyes: FOUND: EOMI, PERRL, NOT FOUND: scleral icterus ENMT (Brief) ENMT: FOUND: hearing intact, mucosa moist Neck (Brief) Neck: FOUND: midline, NOT FOUND: nuchal rigidity, spasm Respiratory (Brief) Respiratory: FOUND: equal bilaterally, other (No distress on O2 ), NOT FOUND: clear all marrufo (Decreased ), rales, wheezes Cardiovascular (Brief) Cardiac: FOUND: pedal edema (Trace ), regular rate, regular rhythm Abdomen (Brief) Abdominal: FOUND: BS normo active x4, soft, NOT FOUND: distended, tender Extremities (Brief) Extremity : Side: Bilateral Extremity: leg Extremity Finding: FOUND: edema (Trace) Musculoskeletal (Brief) Musculoskeletal: FOUND: extremities move equally, NOT FOUND: deformity, spasm Integumentary (Brief) Integumentary: FOUND: dry, warm Neurologic (Brief) Neurological: FOUND: cranial 2-12 intact, motor (intact ) Psychiatric (Brief) Psychiatric: FOUND: alert, attentive, normal affect, oriented Laboratory Laboratory Laboratory Tests 11/21/16 12:19 11/22/16 04:55 Laboratory Tests 11/21/16 12:19 11/22/16 04:55 Microbiology Microbiology Microbiology Date/Time Source Procedure Growth Status 11/21/16 12:35 Peripheral/Iv Start Gram Stain - Final Resulted 11/21/16 12:35 Blood Culture - Preliminary Streptococcus Pneumoniae Resulted 11/21/16 12:19 Peripheral/Iv Start Gram Stain - Final Resulted 11/21/16 12:19 Blood Culture - Preliminary Streptococcus Pneumoniae Resulted 11/21/16 14:08 Sputum Expectorated Sputum Gram Stain Pending Resulted 11/21/16 14:08 Sputum Expectorated Sputum Sputum Culture - Preliminary CULTURE INITIATED - RESULTS PENDING Resulted Assessment & Plan Problems: (1) Sepsis syndrome Status: Acute (2) Septicemia due to Streptococcus pneumoniae Status: Acute (3) Community acquired pneumonia Status: Acute (4) Rhinovirus infection Status: Acute (5) Hypoxia Status: Acute (6) Leukocytosis Status: Acute Qualifiers: Leukocytosis type: unspecified Qualified Codes: D72.829 - Elevated white blood cell count, unspecified Assessment & Plan: POA (7) Elevated liver enzymes Status: Acute Assessment & Plan: POA (8) Elevated bilirubin Status: Acute Assessment & Plan: POA (9) Diastolic heart failure due to valvular disease Status: Chronic (10) Afib Status: Chronic Qualifiers: Atrial fibrillation type: chronic Qualified Codes: I48.2 - Chronic atrial fibrillation (11) Warfarin anticoagulation Status: Chronic (12) Elevated INR Status: Acute Assessment & Plan: POA (13) HTN (hypertension) Status: Chronic Qualifiers: Hypertension type: essential hypertension Qualified Codes: I10 - Essential (primary) hypertension (14) Valvular heart disease Status: Chronic (15) Hyperlipemia Status: Chronic Qualifiers: Hyperlipidemia type: unspecified Qualified Codes: E78.5 - Hyperlipidemia, unspecified (16) Stage III chronic kidney disease Status: Chronic (17) GERD (gastroesophageal reflux disease) Status: Chronic Qualifiers: Esophagitis presence: esophagitis presence not specified Qualified Codes: K21.9 - Gastro-esophageal reflux disease without esophagitis (18) BPH (benign prostatic hypertrophy) Status: Chronic Qualifiers: Prostatic enlargement morphology: unspecified morphology (19) Gouty arthritis Status: Chronic (20) Obesity (BMI 30-39.9) Status: Chronic Plan/Intensity of Service Continue Levaquin for antimicrobial coverage - should provide good coverage. Continue NS at 75 cc/hr to provide hydration. Hold Coumadin as INR elevated - monitor lNR. Continue supplemental O2, weaning as able. HR and BP stable - continue home medications. Recheck CBC in am due to sepsis. Will recheck BC in am due to septicemia. Repeat BMP in am due to sepsis and medication use. Case discussed with CM and pt's . Time spent with patient care 35 minutes. DVT Prophylaxis: Coumadin Code Status Do Not Resuscitate Hospital Course Summary Disclaimer The hospital course summary below is not to be considered part of the above Progress Note. Hospital Course Summary 11/[address] patient in inpatient admission status at [facility] under the care of Dr. Carson. Anticipate greater than two midnights of care needed. Start Levaquin 750 mg IV daily for empiric antimicrobial coverage of pulmonary pathogens. Start normal saline at 75 mL/hr to help with hydration due to his sepsis and pneumonia. Will watch for volume overload. Start Mucinex DM b.i.d. for cough and mucolytic effect. He may have Ricola and Phenergan with codeine as needed for cough. Initiate Acapella to help loosen secretions. Continue with supplemental oxygen, weaning as able. Monitor INR daily secondary to elevated INR and Coumadin use. Will hold Coumadin due to elevation of INR and also potential for interaction between Coumadin and Levaquin. Home medications will be continued other than Coumadin. Start nebulized treatments of DuoNeb q.i.d. and q.4h. p.r.n. shortness of air. Obtain gallbladder ultrasound secondary to elevated liver enzymes and bilirubin to exclude obstruction. Will hold on echocardiogram as one was performed August of this year. Monitor INR daily due to Coumadin use. Recheck CMP in a.m. secondary to elevated liver enzymes as well as to monitor his electrolytes and renal status. Repeat CBC in a.m. secondary to leukocytosis. Discussed code status with patient. He requests NO RESUSCITATION. Order is written. Patient's care will be transitioned to Dr. Dorsey at time of discharge from [facility]. 11/22 Had F/C/Sweats last night-soaked the bed with sweat. Still feeling weak and washed out, but not as pronounces as previously. Still with cough/congestion. Sputum bloody. No pain with breathing or chest pain. Not having nausea or ab pain. Ate well for breakfast. Had good bowel movement this am. Urinating well. Continue Levaquin for antimicrobial coverage - should provide good coverage. Continue NS at 75 cc/hr to provide hydration. Hold Coumadin as INR elevated - monitor lNR. Continue supplemental O2, weaning as able. HR and BP stable - continue home medications. Recheck CBC in am due to sepsis. Will recheck BC in am due to septicemia. Repeat BMP in am due to sepsis and medication use. GYPSY CARSON MD November 22, 2016 11:02
--- NOTE | 2016-11-22 14:11 | NUR ---
CM CM IN TO VISIT PT. CM EXPLAINED ROLE AND PROVIDED CONTACT INFORMATION. PT DENIES NEEDS AT THIS TIME AND IS AWARE TO CONTACT CM SHOULD NEEDS ARISE.
--- NOTE | 2016-11-22 16:31 | NUR ---
status Pt A/O x3, V/S stable on 1L. Pt denies pain and no PRN meds given. Ambulating well up in room, denies dizziness at this time. Urine output good for shift, frequent small amts, lg BM today. Eating and drinking well, no N/V. Pt able to call for needs.
--- NOTE | 2016-11-22 20:00 | NUR ---
resp coarse breath sounds bases. Loose cough, sputum is alcantara and lightly blood tinged. Denies dyspnea at rest
[2016-11-22] MEDS: FINASTERIDE 5 MG TABLET PO SCH (20:45)
[2016-11-22] MEDS: MENTHOL COUGH DROPS (RICOLA) MM PRN (20:45)
[2016-11-23] VITALS (9 sets, daily range): BP systolic 119–147; BP diastolic 67–72; PULSE 66–97; RESP 16–20; TEMP 97.5–99.6; O2SAT 90–96
--- NOTE | 2016-11-23 04:48 | NUR ---
rest sleeps much of night, denies dyspnea. Cough moist with alcantara sputum
[2016-11-23 05:31] LABS: INR 3.7 (0.76-1.04); PROTHROMBIN TIME 40.3 SEC (9.31-12.49)
[2016-11-23 05:37] LABS: ANION GAP 11 MEQ/L (5-15); BUN/CREATININE RATIO 23 RATIO (6-26); CALCIUM 8.5 MG/DL (8.4-10.2); CHLORIDE 105 MEQ/L (98-107); CO2 - CARBON DIOXIDE 24 MEQ/L (22-30); CREATININE 0.9 MG/DL (0.8-1.5); GLOMERULAR FILTRATION RATE 82; GLUCOSE 116 MG/DL (75-110); POTASSIUM 3.8 MEQ/L (3.6-5); SODIUM 140 MEQ/L (134-144)
[2016-11-23 05:48] LABS: BASOPHILS % (AUTO) 0.2 % (0-2); EOSINOPHILS # (AUTO) 0.1 T/MM3 (0-0.5); EOSINOPHILS % (AUTO) 0.8 % (0-4); HCT - HEMATOCRIT 36.1 % (41-53); HGB - HEMOGLOBIN 12.1 GM/DL (13.5-17.5); IMMATURE GRANULOCYTE # (AUTO) 0.15 T/MM3 (0.00-0.03); IMMATURE GRANULOCYTE % (AUTO) 1.1 % (0.0-0.5); LYMPHOCYTES # (AUTO) 1.2 T/MM3 (1-4.8); LYMPHOCYTES % (AUTO) 9.4 % (23-45); MEAN CORPUSCULAR HGB 28.9 UUG (26-34); MEAN CORPUSCULAR HGB CONC(MCHC 33.5 GM/DL (31-37); MEAN CORPUSCULAR VOLUME 86.2 UM3 (80-100); MONOCYTES # (AUTO) 1.5 T/MM3 (0-0.8); MONOCYTES % (AUTO) 11.6 % (0-9.0); NEUTROPHILS #(AUTO)-ABSOLUTE 10.1 T/MM3 (1.8-7.7); NEUTROPHILS % (AUTO) 76.9 % (33-66); RED BLOOD COUNT 4.19 M/MM3 (4.50-5.90); WBC - WHITE BLOOD COUNT 13.2 T/MM3 (4.5-11.0)
[2016-11-23] MEDS: ALBUTEROL/IPRATROPIUM INHAL. 2.5mg-0.5mg/3ml Neb. AEROSOL SCH ×4 (07:37→18:59)
[2016-11-23] MEDS: GUAIFENESIN DM 600mg/30mg TABLET PO SCH ×2 (08:50→21:22)
[2016-11-23] MEDS: DIGOXIN 250 MCG TABLET PO SCH (08:51)
[2016-11-23] MEDS: DILTIAZEM CD 300 MG PO SCH (08:51)
[2016-11-23] MEDS: ALLOPURINOL 100 MG TABLET PO SCH (08:51)
[2016-11-23] MEDS: LORATADINE 10 MG TABLET PO SCH (08:51)
[2016-11-23] MEDS: SALINE NASAL SPRAY 45ml EA NOSTRIL SCH ×4 (08:52→21:23)
[2016-11-23] MEDS: LEVOFLOXACIN 750 MG TABLET PO SCH (09:01)
--- NOTE | 2016-11-23 11:27 | CONSF ---
DATE OF CONSULTATION November 23, 2016 CHIEF COMPLAINT Infectious disease consultation was requested by Dr. Carson for antibiotic recommendations. HISTORY OF PRESENT ILLNESS Mr. Rivera is a 76-year-old man who was admitted on Monday, November 21, with shortness of breath, cough and fever. He reports that he had a sore throat about a couple of weeks ago; however, the weekend prior to admission he was really feeling more ill. He had fatigue, weakness, shortness of breath. He started having cough and chest congestion and decreased appetite. He was seen in the clinic but then sent to the emergency room for evaluation. He was saturating 91% on 2 liters. His white count was almost 17,000. Chest x-ray showed left lower lobe infiltrate. He was admitted for further evaluation. His temperature on admission was 102.7. Both of his blood cultures drawn on admission are positive for Streptococcus pneumoniae. The patient was empirically started on levofloxacin and has improved on that. Just this morning the sensitivities are available on the Strep pneumoniae and it is sensitive to penicillin as well as ceftriaxone and levofloxacin. His leukocytosis increased yesterday up to 19.7 and today is decreased to 13.2. PAST MEDICAL HISTORY Significant for: Congestive heart failure with an ejection fraction 60-65%. Chronic atrial fibrillation on anticoagulation. Hypertension. Valvular heart disease with trace aortic regurgitation, mild mitral regurgitation, mild tricuspid regurgitation. History of sick sinus syndrome. Hyperlipidemia. Stage 3 chronic kidney disease. Seasonal allergies. Gout. Benign prostatic hypertrophy. Gastroesophageal reflux disease. History of colon polyps. History of nephrolithiasis. History of polio. History of cardiac arrest. History of skin cancer. PAST SURGICAL HISTORY He is status post pacemaker placement and then he reports that his entire pacemaker was removed and replaced. History of appendectomy. History of hernia repair. History of ganglion cyst removed from the right wrist. History of prostate surgery. History of lithotripsy. ALLERGIES Listed to IODINE. 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 He is . No history of tobacco or alcohol use. FAMILY HISTORY His father had diabetes, bladder cancer, hypertension. His mother had diabetes, hypertension and lung cancer. He has a sister who has rheumatoid arthritis. CURRENT MEDICATIONS Reviewed in the electronic medical record. REVIEW OF SYSTEMS Significant for fevers which have improved. He reports cough which has been productive but is improving. He has had some sharp chest pains which he also states are improving. He did have some nausea but no vomiting. He had one episode of loose stool. He denies any myalgias or arthralgias. He states his appetite is improving . He has had shortness of breath as mentioned above. He denies any problems with urination. He denies any rashes or itching. The rest of the review of systems is negative other than that mentioned above. He does also mention that he has had a PREVNAR 13 vaccination and shingles vaccination. PHYSICAL EXAM Temperature is 98.4, blood pressure 125/67, pulse 66, respirations 16. Oxygen saturation is 96% on 2 L/NC. Height is 70 inches. Weight is 98 kg. GENERAL: He appears comfortable and is in no acute distress. HEENT: Pupils equal, round, reactive to light. Extraocular movements intact. Oropharynx is clear. Dentition is fair. NECK: Supple. HEART: Regular rate and rhythm. I don't appreciate any murmurs. LUNGS: Significant for decreased breath sounds at the bases bilaterally. No wheezes are appreciated. Lung sounds are mostly clear at the apices. ABDOMEN: Soft and nontender. He has bowel sounds present. : He does not have a Kessler catheter in place. EXTREMITIES: No significant edema. No joint effusions are noted. NEURO EXAM: Grossly nonfocal. He is alert and oriented x 3. Speech is normal. PSYCH: His mood and affect are appropriate. SKIN: No rashes are noted. LABORATORY Laboratory was reviewed. He also had repeat blood cultures drawn at 5:11 this morning and one of those is now reported as Streptococcus pneumoniae at 8:32 a.m. He also had an ultrasound of the gallbladder which was unremarkable. He had a sputum culture that has many gram-positive cocci in pairs, many gram-negative rods on the gram stain and is growing normal jhoan. He also had a positive enterovirus/rhinovirus PCR on his viral panel. IMPRESSION 1. Sepsis secondary to pulmonary source. 2. Septicemia with Streptococcus pneumoniae sensitive to penicillin 3. Upper respiratory infection with enterovirus or rhinovirus. 4. Sick sinus syndrome status post pacemaker placement. 5. Atrial fibrillation on chronic anticoagulation. 6. Hypertension. 7. History of valvular heart disease. 8. Stage 3 chronic kidney disease. 9. Gout. RECOMMENDATIONS Clinically he appears to be improving on the levofloxacin. I will change this to oral and continue dosing at 750 mg orally daily. I did discuss with him that this interacts with his Coumadin which can make his INR higher than normal and this will need to be monitored closely when the Levaquin is discontinued. I would recommend at least two weeks of antibiotic therapy. I will double check with the lab to make sure that his repeat blood culture drawn just this morning is indeed positive because this seems awfully fast. If it is indeed positive again, then I would recommend transesophageal echocardiogram because he does have a history of valvular heart disease and pacemaker in place. If he has evidence of endocarditis, then I would recommend treating him with IV penicillin or ceftriaxone instead of levofloxacin. Thank you for allowing me to participate in the care of this patient. WILL
[2016-11-23] MEDS: NORMAL SALINE 1,000 ML IV SCH ×2 (12:02→14:49)
--- NOTE | 2016-11-23 12:59 | PNPDOC ---
Subjective Date DATE: 11/23/16 TIME: 12:51 Subjective F/U: Sepsis, Strep pneumonia septicemia, Pneumonia Doing better today. Breathing easier-not needing O2. Still notes cough and congestion. No pain with breathing. No f/c. Eating well. Stools moving. No ab pain. Urinating well. Less tired and weak in general. Objective Vital Signs Vital signs Vital Signs Date Time Temp Pulse Resp B/P Pulse Ox O2 Delivery O2 Flow Rate FiO2 11/23/16 12:06 98.4 97 17 147/72 90 Room Air 11/23/16 04:00 2.00 Height (Feet): 5 Height (Inches): 10.00 Weight (Kilograms): 97.500 General General Appearance: Alert, Obese, Orientated x 3, Well Nourished, Well Developed, Cooperative, Other (Looks more energetic ), Looks Stated Age Eyes (Brief) Eyes: FOUND: EOMI, PERRL, NOT FOUND: scleral icterus ENMT (Brief) ENMT: FOUND: hearing intact, mucosa moist Neck (Brief) Neck: FOUND: midline, NOT FOUND: nuchal rigidity, spasm Respiratory (Brief) Respiratory: FOUND: equal bilaterally, other (No distress on RA. ), NOT FOUND: clear all marrufo (Decreased bilaterally, upper airway noises. ), rales, wheezes Cardiovascular (Brief) Cardiac: FOUND: regular rate, regular rhythm, NOT FOUND: pedal edema Abdomen (Brief) Abdominal: FOUND: BS normo active x4, soft, NOT FOUND: distended, tender Extremities (Brief) Extremity : Side: Bilateral Extremity: leg Extremity Finding: NOT FOUND: edema Musculoskeletal (Brief) Musculoskeletal: FOUND: extremities move equally, NOT FOUND: deformity, spasm Integumentary (Brief) Integumentary: FOUND: dry, warm Neurologic (Brief) Neurological: FOUND: cranial 2-12 intact, motor (Intact ) Psychiatric (Brief) Psychiatric: FOUND: alert, attentive, normal affect, oriented Laboratory Laboratory Laboratory Tests 11/22/16 04:55 11/23/16 05:11 Laboratory Tests 11/22/16 04:55 11/23/16 05:11 Microbiology Microbiology Microbiology Date/Time Source Procedure Growth Status 11/23/16 05:11 Peripheral/Iv Start Blood Culture - Preliminary Resulted 11/23/16 05:11 Peripheral/Iv Start Blood Culture - Preliminary CULTURE INITIATED - RESULTS PENDING Resulted 11/21/16 12:35 Peripheral/Iv Start Gram Stain - Final Complete 11/21/16 12:35 Blood Culture - Final Streptococcus Pneumoniae Complete 11/21/16 12:19 Peripheral/Iv Start Gram Stain - Final Complete 11/21/16 12:19 Blood Culture - Final Streptococcus Pneumoniae Complete 11/21/16 14:08 Sputum Expectorated Sputum Gram Stain - Final Complete 11/21/16 14:08 Sputum Culture - Final Normal Upper Respiratory Hemalatha Complete Assessment & Plan Problems: (1) Sepsis syndrome Status: Acute (2) Septicemia due to Streptococcus pneumoniae Status: Acute Assessment & Plan: 2/2 BC positive from admit (3) Community acquired pneumonia Status: Acute (4) Rhinovirus infection Status: Acute (5) Hypoxia Status: Resolved (6) Leukocytosis Status: Acute Qualifiers: Leukocytosis type: unspecified Qualified Codes: D72.829 - Elevated white blood cell count, unspecified Assessment & Plan: POA (7) Elevated liver enzymes Status: Acute Assessment & Plan: POA (8) Elevated bilirubin Status: Acute Assessment & Plan: POA (9) Diastolic heart failure due to valvular disease Status: Chronic (10) Afib Status: Chronic Qualifiers: Atrial fibrillation type: chronic Qualified Codes: I48.2 - Chronic atrial fibrillation (11) Warfarin anticoagulation Status: Chronic (12) Elevated INR Status: Acute Assessment & Plan: POA (13) HTN (hypertension) Status: Chronic Qualifiers: Hypertension type: essential hypertension Qualified Codes: I10 - Essential (primary) hypertension (14) Valvular heart disease Status: Chronic (15) Hyperlipemia Status: Chronic Qualifiers: Hyperlipidemia type: unspecified Qualified Codes: E78.5 - Hyperlipidemia, unspecified (16) Stage III chronic kidney disease Status: Chronic (17) GERD (gastroesophageal reflux disease) Status: Chronic Qualifiers: Esophagitis presence: esophagitis presence not specified Qualified Codes: K21.9 - Gastro-esophageal reflux disease without esophagitis (18) BPH (benign prostatic hypertrophy) Status: Chronic Qualifiers: Prostatic enlargement morphology: unspecified morphology (19) Gouty arthritis Status: Chronic (20) Obesity (BMI 30-39.9) Status: Chronic Plan/Intensity of Service Continue Levaquin for antimicrobial coverage - ID recommends change to po and continue for 2 week course. Decrease NS to 50 cc/hr. Hold Coumadin as INR elevated - monitor INR. Encourage ambulation activities to help strength. Recheck CBC in am due to resolving sepsis and leukocytosis. Repeat CMP in am due to elevated Bili/LFT and IVF use. Case discussed with CM and pt's . Time spent with patient care 35 minutes. DVT Prophylaxis: Coumadin Code Status Do Not Resuscitate Hospital Course Summary Disclaimer The hospital course summary below is not to be considered part of the above Progress Note. Hospital Course Summary 11/[address] patient in inpatient admission status at [facility] under the care of Dr. Carson. Anticipate greater than two midnights of care needed. Start Levaquin 750 mg IV daily for empiric antimicrobial coverage of pulmonary pathogens. Start normal saline at 75 mL/hr to help with hydration due to his sepsis and pneumonia. Will watch for volume overload. Start Mucinex DM b.i.d. for cough and mucolytic effect. He may have Ricola and Phenergan with codeine as needed for cough. Initiate Acapella to help loosen secretions. Continue with supplemental oxygen, weaning as able. Monitor INR daily secondary to elevated INR and Coumadin use. Will hold Coumadin due to elevation of INR and also potential for interaction between Coumadin and Levaquin. Home medications will be continued other than Coumadin. Start nebulized treatments of DuoNeb q.i.d. and q.4h. p.r.n. shortness of air. Obtain gallbladder ultrasound secondary to elevated liver enzymes and bilirubin to exclude obstruction. Will hold on echocardiogram as one was performed August of this year. Monitor INR daily due to Coumadin use. Recheck CMP in a.m. secondary to elevated liver enzymes as well as to monitor his electrolytes and renal status. Repeat CBC in a.m. secondary to leukocytosis. Discussed code status with patient. He requests NO RESUSCITATION. Order is written. Patient's care will be transitioned to Dr. Dorsey at time of discharge from [facility]. 11/22 Had F/C/Sweats last night-soaked the bed with sweat. Still feeling weak and washed out, but not as pronounces as previously. Still with cough/congestion. Sputum bloody. No pain with breathing or chest pain. Not having nausea or ab pain. Ate well for breakfast. Had good bowel movement this am. Urinating well. Continue Levaquin for antimicrobial coverage - should provide good coverage. Continue NS at 75 cc/hr to provide hydration. Hold Coumadin as INR elevated - monitor INR. Continue supplemental O2, weaning as able. HR and BP stable - continue home medications. Recheck CBC in am due to sepsis. Will recheck BC in am due to septicemia. Repeat BMP in am due to sepsis and medication use. 5/3 Doing better today. Breathing easier-not needing O2. Still notes cough and congestion. No pain with breathing. No f/c. Eating well. Stools moving. No ab pain. Urinating well. Less tired and weak in general. WBC decreased to 13.2. INR 3.70. Continue Levaquin for antimicrobial coverage - ID recommends change to po and continue for 2 week course. Decrease NS to 50 cc/hr. Hold Coumadin as INR elevated - monitor INR. Encourage ambulation activities to help strength. Recheck CBC in am due to resolving sepsis and leukocytosis. Repeat CMP in am due to elevated Bili/LFT and IVF use. GYPSY CARSON MD November 23, 2016 12:54
--- NOTE | 2016-11-23 18:20 | NUR ---
SHIFT SUMMARY PT IS ALERT AND ORIENTED X3. RA. VS CHARTED. PT COLLABORATES WITH TREATMENTS AND CARE. PT GETS UP BY HIMSELF. PT WALKS TO THE BATHROOM MOST OF THE TIMES DURING THIS SHIFT. PT AMBULATED IN THE [facility] X2, ONE DURING THE AFTERNOON AND THE SECOND WALK IN THIS EVENING. HAS BEEN WITH HIM DURING THIS SHIFT. PT HAS A GOOD APPETITE AND URINE OUTPUT. CALL LIGHT IS WITHIN REACH AND PT CALLS WHEN NEED IT.
[2016-11-23] MEDS: MENTHOL COUGH DROPS (RICOLA) MM PRN (21:22)
--- NOTE | 2016-11-23 21:30 | NUR ---
activity up in room with good balance. Ambulates in hallway, gait steady. Denies dyspnea with activity
[2016-11-23] MEDS ORDERED: FINASTERIDE 5 MG TABLET PO SCH (22:00)
[2016-11-24] VITALS (7 sets, daily range): BP systolic 134–138; BP diastolic 65–82; PULSE 70–103; RESP 16–24; TEMP 98.2–100.2; O2SAT 90–96
--- NOTE | 2016-11-24 00:10 | NUR ---
temp low grade temp, pt. offered to tylenol for temp and to assist w/ rest
[2016-11-24] MEDS: ACETAMINOPHEN 325 MG TABLET PO PRN (01:05)
--- NOTE | 2016-11-24 05:30 | NUR ---
rest sleeps for long intervals, resp. unlabored
[2016-11-24 05:36] LABS: BASOPHILS % (AUTO) 0.3 % (0-2); EOSINOPHILS # (AUTO) 0.3 T/MM3 (0-0.5); EOSINOPHILS % (AUTO) 2.3 % (0-4); HCT - HEMATOCRIT 37.4 % (41-53); HGB - HEMOGLOBIN 12.2 GM/DL (13.5-17.5); IMMATURE GRANULOCYTE % (AUTO) 2.5 % (0.0-0.5); LYMPHOCYTES # (AUTO) 1.4 T/MM3 (1-4.8); LYMPHOCYTES % (AUTO) 11.5 % (23-45); MEAN CORPUSCULAR HGB 28.3 UUG (26-34); MEAN CORPUSCULAR HGB CONC(MCHC 32.6 GM/DL (31-37); MEAN CORPUSCULAR VOLUME 86.8 UM3 (80-100); MEAN PLATELET VOLUME 9.8 UM3 (9.4-12.4); MONOCYTES # (AUTO) 1.5 T/MM3 (0-0.8); MONOCYTES % (AUTO) 12.8 % (0-9.0); NEUTROPHILS #(AUTO)-ABSOLUTE 8.4 T/MM3 (1.8-7.7); NEUTROPHILS % (AUTO) 70.6 % (33-66); RED BLOOD COUNT 4.31 M/MM3 (4.50-5.90); WBC - WHITE BLOOD COUNT 11.9 T/MM3 (4.5-11.0)
[2016-11-24 05:39] LABS: INR 3.11 (0.76-1.04); PROTHROMBIN TIME 33.9 SEC (9.31-12.49)
[2016-11-24 05:45] LABS: ALBUMIN 2.8 G/DL (3.5-5.0); ALBUMIN/GLOBULIN RATIO 0.9 RATIO (1.1-2.2); ALKALINE PHOSPHATASE 251 U/L (38-126); ALT (SGPT) 76 U/L (21-72); ANION GAP 9 MEQ/L (5-15); AST (SGOT) 39 U/L (17-59); BUN/CREATININE RATIO 15 RATIO (6-26); CALCIUM 8.9 MG/DL (8.4-10.2); CHLORIDE 104 MEQ/L (98-107); CO2 - CARBON DIOXIDE 28 MEQ/L (22-30); GLOMERULAR FILTRATION RATE 73; GLUCOSE 111 MG/DL (75-110); SODIUM 141 MEQ/L (134-144); TOTAL PROTEIN 5.9 G/DL (6.3-8.2)
[2016-11-24] MEDS: LEVOFLOXACIN 750 MG TABLET PO SCH (06:36)
[2016-11-24] MEDS: ALBUTEROL/IPRATROPIUM INHAL. 2.5mg-0.5mg/3ml Neb. AEROSOL SCH ×3 (08:03→15:48)
[2016-11-24] MEDS: DIGOXIN 250 MCG TABLET PO SCH (08:50)
[2016-11-24] MEDS: ALLOPURINOL 100 MG TABLET PO SCH (08:50)
[2016-11-24] MEDS: GUAIFENESIN DM 600mg/30mg TABLET PO SCH (08:50)
[2016-11-24] MEDS: LORATADINE 10 MG TABLET PO SCH (08:50)
[2016-11-24] MEDS: SALINE NASAL SPRAY 45ml EA NOSTRIL SCH (08:51)
[2016-11-24] MEDS: DILTIAZEM CD 300 MG PO SCH (08:51)
[2016-11-24] MEDS: NORMAL SALINE 1,000 ML IV SCH (09:34)
--- NOTE | 2016-11-24 10:39 | PNPDOC ---
Subjective Date DATE: 11/24/16 TIME: 10:32 Subjective F/U: Sepsis, Strep pneumonia septicemia, Pneumonia Doing well this morning. Slept better last night. Less cough and congestion. Maintaining saturations well on RA. Walked 3 times yesterday without problems. Eating well. Stools slow-none yesterday, but did have stool post Dulcolax this morning. Urinating well. Objective Vital Signs Vital signs Vital Signs Date Time Temp Pulse Resp B/P Pulse Ox O2 Delivery O2 Flow Rate FiO2 11/24/16 08:50 95 11/24/16 08:04 20 94 11/24/16 04:29 98.5 11/24/16 00:00 134/69 Room Air 11/23/16 04:00 2.00 Height (Feet): 5 Height (Inches): 10.00 Weight (Kilograms): 97.500 General General Appearance: Alert, Obese, Orientated x 3, Well Nourished, Well Developed, Cooperative, No Acute Distress, Looks Stated Age Eyes (Brief) Eyes: FOUND: EOMI, PERRL, NOT FOUND: scleral icterus ENMT (Brief) ENMT: FOUND: hearing intact, mucosa moist (No thrush ) Neck (Brief) Neck: FOUND: midline, NOT FOUND: nuchal rigidity, spasm Respiratory (Brief) Respiratory: FOUND: other (No conversational dyspnea or respiratroy distress on RA. ), NOT FOUND: clear all marrufo (Decreased, but good air movement), rales , wheezes Cardiovascular (Brief) Cardiac: FOUND: pedal edema (Trace ), regular rate, regular rhythm Abdomen (Brief) Abdominal: FOUND: BS normo active x4, soft, NOT FOUND: distended, tender Extremities (Brief) Extremity : Extremity: leg Extremity Finding: FOUND: edema (Trace ) Musculoskeletal (Brief) Musculoskeletal: FOUND: extremities move equally, NOT FOUND: deformity, loss of motion, spasm, tenderness Integumentary (Brief) Integumentary: FOUND: dry, warm Neurologic (Brief) Neurological: FOUND: cranial 2-12 intact, motor (Intact ) Psychiatric (Brief) Psychiatric: FOUND: alert, attentive, normal affect, oriented Laboratory Laboratory Laboratory Tests 11/23/16 05:11 11/24/16 04:42 Laboratory Tests 11/23/16 05:11 11/24/16 04:42 Microbiology Microbiology Microbiology Date/Time Source Procedure Growth Status 11/23/16 05:11 Peripheral/Iv Start Blood Culture - Preliminary Resulted 11/23/16 05:11 Peripheral/Iv Start Blood Culture - Preliminary NO GROWTH AFTER 24 HOURS Resulted 11/21/16 12:35 Peripheral/Iv Start Gram Stain - Final Complete 11/21/16 12:35 Blood Culture - Final Streptococcus Pneumoniae Complete 11/21/16 12:19 Peripheral/Iv Start Gram Stain - Final Complete 11/21/16 12:19 Blood Culture - Final Streptococcus Pneumoniae Complete 11/21/16 14:08 Sputum Expectorated Sputum Gram Stain - Final Complete 11/21/16 14:08 Sputum Culture - Final Normal Upper Respiratory Hemalatha Complete Assessment & Plan Problems: (1) Sepsis syndrome Status: Resolved (2) Septicemia due to Streptococcus pneumoniae Status: Acute Assessment & Plan: 2/2 BC positive from admit (3) Community acquired pneumonia Status: Acute (4) Rhinovirus infection Status: Acute (5) Hypoxia Status: Resolved (6) Leukocytosis Status: Acute Qualifiers: Leukocytosis type: unspecified Qualified Codes: D72.829 - Elevated white blood cell count, unspecified Assessment & Plan: POA (7) Elevated liver enzymes Status: Acute Assessment & Plan: POA (8) Elevated bilirubin Status: Acute Assessment & Plan: POA (9) Diastolic heart failure due to valvular disease Status: Chronic (10) Afib Status: Chronic Qualifiers: Atrial fibrillation type: chronic Qualified Codes: I48.2 - Chronic atrial fibrillation (11) Warfarin anticoagulation Status: Chronic (12) Elevated INR Status: Acute Assessment & Plan: POA (13) HTN (hypertension) Status: Chronic Qualifiers: Hypertension type: essential hypertension Qualified Codes: I10 - Essential (primary) hypertension (14) Valvular heart disease Status: Chronic (15) Hyperlipemia Status: Chronic Qualifiers: Hyperlipidemia type: unspecified Qualified Codes: E78.5 - Hyperlipidemia, unspecified (16) Stage III chronic kidney disease Status: Chronic (17) GERD (gastroesophageal reflux disease) Status: Chronic Qualifiers: Esophagitis presence: esophagitis presence not specified Qualified Codes: K21.9 - Gastro-esophageal reflux disease without esophagitis (18) BPH (benign prostatic hypertrophy) Status: Chronic Qualifiers: Prostatic enlargement morphology: unspecified morphology (19) Gouty arthritis Status: Chronic (20) Obesity (BMI 30-39.9) Status: Chronic Plan/Intensity of Service Continue with oral Levaquin for coverage - needs another 10 days of treatment. Continue Acapella and Mucinex to help loosen secretions. May D/C IVF as taking po well. Continue ambulation activities to help strength. Possible d/c to home this afternoon if continues to do well. Reassessed this afternoon. Doing well. Will d/c to home. See orders for details. Case discussed with CM and pt's . Time spent with patient care 35 minutes. DVT Prophylaxis: Coumadin Code Status Do Not Resuscitate Hospital Course Summary Disclaimer The hospital course summary below is not to be considered part of the above Progress Note. Hospital Course Summary 11/[address] patient in inpatient admission status at [facility] under the care of Dr. Carson. Anticipate greater than two midnights of care needed. Start Levaquin 750 mg IV daily for empiric antimicrobial coverage of pulmonary pathogens. Start normal saline at 75 mL/hr to help with hydration due to his sepsis and pneumonia. Will watch for volume overload. Start Mucinex DM b.i.d. for cough and mucolytic effect. He may have Ricola and Phenergan with codeine as needed for cough. Initiate Acapella to help loosen secretions. Continue with supplemental oxygen, weaning as able. Monitor INR daily secondary to elevated INR and Coumadin use. Will hold Coumadin due to elevation of INR and also potential for interaction between Coumadin and Levaquin. Home medications will be continued other than Coumadin. Start nebulized treatments of DuoNeb q.i.d. and q.4h. p.r.n. shortness of air. Obtain gallbladder ultrasound secondary to elevated liver enzymes and bilirubin to exclude obstruction. Will hold on echocardiogram as one was performed August of this year. Monitor INR daily due to Coumadin use. Recheck CMP in a.m. secondary to elevated liver enzymes as well as to monitor his electrolytes and renal status. Repeat CBC in a.m. secondary to leukocytosis. Discussed code status with patient. He requests NO RESUSCITATION. Order is written. Patient's care will be transitioned to Dr. Dorsey at time of discharge from [facility]. 11/22 Had F/C/Sweats last night-soaked the bed with sweat. Still feeling weak and washed out, but not as pronounces as previously. Still with cough/congestion. Sputum bloody. No pain with breathing or chest pain. Not having nausea or ab pain. Ate well for breakfast. Had good bowel movement this am. Urinating well. Continue Levaquin for antimicrobial coverage - should provide good coverage. Continue NS at 75 cc/hr to provide hydration. Hold Coumadin as INR elevated - monitor INR. Continue supplemental O2, weaning as able. HR and BP stable - continue home medications. Recheck CBC in am due to sepsis. Will recheck BC in am due to septicemia. Repeat BMP in am due to sepsis and medication use. 5/3 Doing better today. Breathing easier-not needing O2. Still notes cough and congestion. No pain with breathing. No f/c. Eating well. Stools moving. No ab pain. Urinating well. Less tired and weak in general. WBC decreased to 13.2. INR 3.70. Continue Levaquin for antimicrobial coverage - ID recommends change to po and continue for 2 week course. Decrease NS to 50 cc/hr. Hold Coumadin as INR elevated - monitor INR. Encourage ambulation activities to help strength. Recheck CBC in am due to resolving sepsis and leukocytosis. Repeat CMP in am due to elevated Bili/LFT and IVF use. 5/4 Doing well this morning. Slept better last night. Less cough and congestion. Maintaining saturations well on RA. Walked 3 times yesterday without problems. Eating well. Stools slow-none yesterday, but did have stool post Dulcolax this morning. Urinating well. WBC decreased to 11.9. INR 3.11. Continue with oral Levaquin for coverage - needs another 10 days of treatment. Continue Acapella and Mucinex to help loosen secretions. May D/C IVF as taking po well. Continue ambulation activities to help strength. Possible d/c to home this afternoon if continues to do well. GYPSY CARSON MD November 24, 2016 10:35
--- NOTE | 2016-11-24 10:40 | NUR ---
CM CM IN TO VISIT WITH PT. PT DENIES NEEDS AT THIS TIME. PT AWARE TO CALL CM SHOULD NEEDS ARISE.
--- NOTE | 2016-11-24 14:00 | NUR ---
shift status ambulates in [place] remains on room encouraged deep breathing.tele is a fib. has a moist productive cough of lite pink tinged sputum
--- NOTE | 2016-11-24 15:55 | NUR ---
discharge instructions reviewed with pt and ivl and tele dc;[facility] with family.
[2016-11-24] MEDS ORDERED: SODI45SP7 EA NOSTRIL (16:10)
[2016-11-24] MEDS ORDERED: CODE118S2 PO (16:10)
[2016-11-24] MEDS ORDERED: LEVO750T20 PO (16:10)
[2016-11-24] MEDS ORDERED: LORA10TA62 PO (16:10)
[2016-11-24] MEDS ORDERED: GUAI-782 PO (16:10)
--- NOTE | 2016-11-26 10:19 | DSF ---
ADMISSION DIAGNOSIS Sepsis syndrome. DISCHARGE DIAGNOSIS Sepsis syndrome with septicemia secondary to Streptococcus pneumoniae. ASSOCIATED CONDITIONS AND COMPLICATIONS Community-acquired pneumonia. Rhinovirus infection. Leukocytosis--resolved. Elevated liver enzymes. Elevated bilirubin-- resolved. Chronic diastolic heart failure. Chronic atrial fibrillation. Warfarin anticoagulation. Elevated INR--suspect secondary to decreased oral intake due to illness predating admission. Hypertension. Valvular heart disease. Hyperlipidemia. Stage III chronic kidney disease. GERD. BPH. Gouty arthritis. Obesity. PROCEDURES None. CONSULTS Dr. Pastor--Infectious Disease. CLINICAL RESUME Mr. Rivera is a 76-year-old gentleman who is referred to [facility] Emergency Room from his primary care provider's office secondary to shortness of air, cough, and hypoxia. The patient reports he has been having cough for the past week and a half. During this time he has been coughing fairly thick, clear sputum. Cough has been persistent and not improving. He did have a root canal performed on 11/17/2016. Later that day he and his went up to [place] for a wedding. He notes that while he was up in [place] he started feeling much more rough. He was more weak and unstable-- it was very difficult for him to get up and walk and be ambulatory. His legs felt weak and unsteady and as he would walk and move he felt more short of air. Cough started to increase, with more chest congestion. His chest wall became quite sore from all the coughing. Also, he had very decreased appetite. He was not interested in eating. He has had an episode of nausea with emesis times at least three. He has not had diarrhea--did not have bowel movement today. He does note sinus congestion but essentially stable--he has chronic sinus congestion and fullness year round. He started having temperature elevation. He notes more chills and sweats. He has not noticed palpitations or cardiac irregularity. He has been passing bloody nasal mucus. He does note decreased urine output and urine has been dark with some blood in it. He has not seen blood in stool. In clinic he was evaluated. He was found to be hypoxic and sent to emergency room for evaluation. It is uncertain just what his room-air oxygen level was as he was maintaining 91% on 2 liters. White count is elevated at 16.9 with 91% neutrophils and 1% bands. Lactate is 1.9. INR is elevated at 3.87. Chest x-ray does show evidence of infiltrate in the left lower lobe. In light of his sepsis secondary to pneumonia, Dr. Carson was notified and he was subsequently placed in inpatient admission status for further evaluation and treatment. Anticipated length of stay is thought to be greater than two midnights. For complete details of the H&P, refer to that document. LABORATORY White blood count is 16.9, with 91% neutrophils and 5% bands. Hemoglobin is 13.6, with hematocrit 39.7, MCV 85.2, and platelets 243,000. Serum sodium is 139, potassium 4.1, chloride 98, CO2 27, BUN 34, with creatinine 1.3, GFR 54, and blood glucose 144. Total bilirubin is 2.70, with AST 50 and ALT 92. Alkaline phosphatase is 205. Troponin I is 0.015. Pro-BNP is 4990. Plasma lactate is 1.9. INR is 2.87. Digoxin is therapeutic at 1.2. UA reveals elevated urobilinogen. Respiratory PCR panel is positive only for rhinovirus. HOSPITAL COURSE Patient was placed in inpatient admission status at [facility] under the care of Dr. Carson. He was started on Levaquin 750 mg IV daily for empiric antimicrobial coverage of pulmonary pathogens. IV fluids of normal saline were initiated at 75 mL an hour to help with hydration. We did monitor his volume status closely with his underlying diastolic heart failure. Mucinex DM was initiated b.i.d. for cough and mucolytic effect. We did add Acapella to help loosen secretions. Ricola and Phenergan with codeine were available as needed for cough. Supplemental oxygen was continued. We did monitor his INR daily in light of Coumadin use as well as Levaquin. Nebulized treatments of Duo-Neb were initiated q.i.d. and p.r.n. Lab was monitored. He was made DNR at time of presentation as per his request. In light of his elevated liver enzymes, gallbladder ultrasound was performed which was unremarkable. Liver enzymes were monitored during the hospitalization, and we did see normalization of his bilirubin and a decrease of AST down to 76 (slightly above normal at 72). INR was monitored--it did increase up to 4.28 by 11/22/2016 but was trending downward towards time of discharge. We did hold Coumadin during the hospitalization. Interaction between Coumadin and Levaquin caused INR to remain therapeutic during hospitalization despite use of Coumadin. Blood cultures were taken in the emergency room. Both these cultures did grow positive for Streptococcus pneumoniae. We did repeat blood cultures on the 11/23/2016, and these were negative by time of discharge. Dr. Pastor was consulted for antimicrobial recommendation and treatment duration. She did concur with Levaquin use. She felt a total of 14 days would be prudent. Fortunately, the patient's sepsis syndrome did resolve nicely. His leukocytosis defervesced. His respiratory status improved and he was able to weaned off of oxygen during the hospitalization. Activities were advanced and by time of discharge he was ambulating without limitations. Appetite was doing well. By time of discharge he was eating, drinking, and breathing well. Vitals were stable and he was afebrile. His white count had decreased to 11.9 and shift had resolved. Sodium was 141, with potassium 4.0, creatinine 1.0, GFR 73, and blood glucose 111. His INR was 3.11. He was able to be discharged to home on room air. He will continue 10 more days of outpatient Levaquin. He will need lab following in the outpatient setting through Dr. Dorsey's office. NARRATIVE DISCLAIMER: Above narrative is a brief summary of the patient's hospitalization. For complete details of the hospital course, refer to the medical record. DISCHARGE CONDITION Stable/good. DIET Low sodium. ACTIVITIES As tolerated. MEDICATIONS Levaquin 750 mg p.o. b.i.d. for 10 days. Mucinex DM b.i.d. for 7 days then p.r.n. Claritin 10 mg daily p.r.n. allergies. Phenergan with codeine 5 mL q.6h. p.r.n. severe cough. Nasal saline two sprays each nostril q.i.d. Allopurinol 100 mg daily. Digoxin 0.25 mg daily. Diltiazem 300 mg daily. Proscar 5 mg daily. Coumadin: Patient will take one-half his usual dose. On days where he takes 5 mg, he will take a 2.5 mg tablet. On days he takes 2.5 mg, he will take no Coumadin. FOLLOWUP Patient will follow with Dr. Dorsey in approximately one week--recommend recheck CMP and INR at that time. INR will need to be monitored secondary to his Coumadin use and Levaquin. INSTRUCTIONS TO PATIENT Patient was instructed on his diagnoses and treatments provided. He was encouraged to be adherent with medications. We discussed the interaction between Levaquin and Coumadin. Discussed rationale behind backing down his Coumadin dose and also discussed his levels were slightly above therapeutic during the hospitalization. He will watch for bleeding and bruising. Additionally he will watch for temperature elevation greater than 100.4. He will be mindful of increasing shortness of breath, cough, or congestion. Should these or other problems or needs occur, he could be in contact with Dr. Dorsey. If symptoms become quite dire, he can present to emergency room for acute evaluation. He voiced understanding of the above. Time spent with discharge greater than 35 minutes. MTDD
== END 2016-11-24 17:15 | disposition home or self-care (01) | DRG 871 ==
LOC: ED 11:39 → EDHOLD 14:10 → MED 14:53
PROVIDERS: ADMIT Hospitalist; ATTEND Hospitalist
DX: A40.3 Sepsis due to Streptococcus pneumoniae (principal); J18.9 Pneumonia, unspecified organism; I13.0 Hypertensive heart and chronic kidney disease with heart failure and stage 1 through stage 4 chronic kidney disease, or unspecified chronic kidney disease; I50.32 Chronic diastolic (congestive) heart failure; R09.02 Hypoxemia; N18.3 Chronic kidney disease, stage 3 (moderate); I48.2 Chronic atrial fibrillation; B34.8 Other viral infections of unspecified site; E78.5 Hyperlipidemia, unspecified; K21.9 Gastro-esophageal reflux disease without esophagitis; K57.90 Diverticulosis of intestine, part unspecified, without perforation or abscess without bleeding; L57.0 Actinic keratosis; N40.0 Benign prostatic hyperplasia without lower urinary tract symptoms; M10.9 Gout, unspecified; Z79.01 Long term (current) use of anticoagulants; Z79.899 Other long term (current) drug therapy; Z95.0 Presence of cardiac pacemaker; Z86.74 Personal history of sudden cardiac arrest; Z86.12 Personal history of poliomyelitis
CPT/HCPCS: 36415; 80048; 80053; 80162; 81001; 83605; 83735; 83880; 84484; 85025; 85610; 87040; 87070; 87150; 87186; 87205; 87486; 87581; 87633; 87798; 93005; 94640; 94667; 94668; 96365

== ENCOUNTER → 2016-12-02 | Outpatient (CLI) | payer MEDICARE, OTHER ==
[~2016-12-02] MED LIST changes: +CODE118S2 PO; +GUAI-782 PO; +LEVO750T20 PO; +LORA10TA62 PO; +SODI45SP7 EA NOSTRIL; +WARF5TAB6 PO; -WARF5TAB67 PO
[2016-12-02 11:26] LABS: PH, BODY FLUID 7.71
[2016-12-02 11:29] LABS: BODY FLUID TYPE PLEURAL FLUID
[2016-12-02 11:50] LABS: BASOPHILS,BODY FLUID 0 %; EOSINOPHILS,BODY FLUID 0 %; LYMPHOCYTES,BODY FLUID 61 %; MONOCYTES,BODY FLUID 20 %; NEUTROPHILS,BODY FLUID 19 %
== END ==
LOC: LABN 10:59
PROVIDERS: ATTEND Surgery
DX: J94.8 Other specified pleural conditions (principal)
CPT/HCPCS: 82150; 82945; 83615; 83986; 84157; 84315; 87015; 87070; 87102; 87116; 88112; 88305; 89051